=== PATIENT | male | born 1980 | race Caucasian/White ===

== ENCOUNTER 2017-11-19 06:28 | Emergency (ER) | payer OTHER ==
[2017-11-19] MEDS ORDERED: NA CHLORIDE 0.9% 1,000 ML ONE (06:53)
[2017-11-19] MEDS ORDERED: ONDANSETRON 4 MG/2 ML VIAL ONE (06:53)
[2017-11-19] MEDS ORDERED: LOSARTAN POTASSIUM 50 MG TABLET ONE (07:00)
[2017-11-19 07:10] LABS: Absolute Lymphocytes (CBC) 2.6 K/uL (0.7-4.9); Absolute Monocytes 1.3 K/uL (0.1-1.3); Absolute Neutrophil 11.5 K/uL (1.8-8.0); Basophils % 0.6 % (0-1.3); Eosinophils % 0.4 % (0-4.4); Hematocrit 50.1 % (39.6-49.0); Lymphocytes % 16.9 % (15.3-44.8); MCH 24.6 pg (27.0-35.0); MCV 76.6 fL (80-100); MPV 8.6 fL (7.6-11.3); Monocytes % 8.6 % (3.3-12.3); RBC Red Blood Cell Count 6.54 M/uL (4.33-5.43)
[2017-11-19 07:17] LABS: Bicarbonate 28 mEq/L (21-31); Glucose Level 145 mg/dL (65-120); Lipase 40 U/L (22-51); Potassium 3.3 mEq/L (3.6-5.0); Sodium Level 138 mEq/L (135-145)
[2017-11-19 07:23] LABS: ALT/SGPT 49 IU/L (10-60); AST/SGOT 39 IU/L (10-42); Albumin 4.3 g/dL (3.2-5.5); Alkaline Phosphatase 95 IU/L (42-121); Amylase Level 75 U/L (28-100); BUN Blood Urea Nitrogen 13 mg/dL (6-20); Bilirubin Direct 0.1 mg/dL (0-0.2); Bilirubin Total 0.5 mg/dL (0.3-1.2); Protein, Total 7.6 g/dL (6.0-8.3)
[2017-11-19 08:25] LABS: Urine Bacteria <20 /HPF (NONE SEEN); Urine Culture Reflex Order NOT NEEDED; Urine RBC <5 /HPF (NONE SEEN)
[2017-11-19 08:26] LABS: Urine Blood NEGATIVE (NEG); Urine Glucose NEGATIVE (NEG); Urine Protein 1+ (NEG); Urine pH 7.5 (5.0-7.0)
[2017-11-19] MEDS ORDERED: HYDRALAZINE HCL 20 MG/ML VIAL ONE (09:47)
--- NOTE | 2017-11-19 10:41 | RAD REPORT ---
EXAM DESCRIPTION: CT - Abdomen Pelvis W Contrast - 11/19/2017 10:12 am CLINICAL HISTORY: Abdominal pain. Left upper quadrant pain COMPARISON: None. TECHNIQUE: Computed axial tomography of the abdomen and pelvis was obtained. 100 cc Isovue-300 is ad ministered intravenously. Oral contrast was given. All CT scans are performed using dose optimization technique as appropriate and may include automated exposure control or mA/KV adjustment according to patient size. FINDINGS: Fatty infiltration liver seen. Gallstones are present without gallbladder wall thickening. The Spleen, pancreas, adrenals and kidneys appear unremarkable. The appendix is normal caliber. There is no evidence of diverticulitis A right inguinal hernia contains fat. A small duodenal diverticulum is present IMPRESSION: Cholelithiasis without evidence of cholecystitis
--- NOTE | 2017-11-19 10:50 | ER ---
Nurse's Notes [facility] Name: Cuba Rosales Age: 37 yrs Sex: Male : 1980 Arrival Date: 11/19/2017 Time: 06:30 Bed 16 Private MD: Diagnosis: Essential (primary) hypertension;Hypokalemia;Dehydration;Infectious gastroenteritis and colitis, unspecified Presentation: 11/19 06:44 Presenting complaint: Patient states: Has been having abdominal cramping and vomiting lp1 x2 days; pain to LUQ of abdomen; Significant other states "he has been clammy"; Patient states similar symptoms when diagnosed with gastritis. Transition of care: patient was not received from another setting of care. Onset of symptoms was November 17, 2017. Risk Assessment: Do you want to hurt yourself or someone else? Patient reports no desire to harm self or others. Initial Sepsis Screen: Does the patient meet any 2 criteria? No. Patient's initial sepsis screen is negative. Does the patient have a suspected source of infection? No. Patient's initial sepsis screen is negative. Care prior to arrival: None. 06:44 Method Of Arrival: Ambulatory lp1 06:44 Acuity: PUMA 3 lp1 Historical: - Allergies: 06:48 Bactrim; lp1 06:48 Benadryl; lp1 06:48 Lisinopril; lp1 06:48 Clindamycin; lp1 - Home Meds: 06:48 losartan 50 mg oral tab 1 tab once daily [Active]; lp1 - PMHx: 06:48 Hypertension; lp1 - PSHx: 06:48 Ear Tubes; lp1 - Immunization history:: Adult Immunizations up to date. - Social history:: Smoking status: Patient/guardian denies using tobacco. - Ebola Screening: : No symptoms or risks identified at this time. - Family history:: not pertinent. - Hospitalizations: : No recent hospitalization is reported. Screenin:49 Abuse screen: Denies threats or abuse. Denies injuries from another. Nutritional lp1 screening: No deficits noted. Tuberculosis screening: No symptoms or risk factors identified. Fall Risk None identified. Assessment: 06:48 General: Appears uncomfortable, Behavior is appropriate for age. Pain: Complains of lp1 pain in left upper quadrant Pain currently is 5 out of 10 on a pain scale. Neuro: Level of Consciousness is awake, alert, obeys commands. Cardiovascular: Patient's skin is warm and dry. Respiratory: Respiratory effort is even, unlabored. GI: Abdomen is round distended, Abdomen is tender to palpation in left upper quadrant Reports upper abdominal pain, vomiting. : Denies burning with urination. EENT: No signs and/or symptoms were reported regarding the EENT system. Derm: Skin is pink, warm \\T\\ dry. Musculoskeletal: Circulation, motion, and sensation intact. 08:10 Reassessment: No changes from previously documented assessment. Patient and/or family jl7 updated on plan of care and expected duration. Pain level reassessed. Patient is alert, oriented x 3, equal unlabored respirations, skin warm/dry/pink. 09:45 Reassessment: No changes from previously documented assessment. Patient and/or family jl7 updated on plan of care and expected duration. Pain level reassessed. Patient is alert, oriented x 3, equal unlabored respirations, skin warm/dry/pink. Provider notified of unchanged BP, see [facility] for orders. Vital Signs: 06:46 BP 195 / 113; Pulse 76; Resp 18; Temp 98.5(O); Pulse Ox 97% on R/A; Weight 72.57 kg; lp1 Height 5 ft. 5 in. (165.10 cm); Pain 6/10; 07:45 BP 195 / 116; Pulse 75; Resp 16; Pulse Ox 96% ; jl7 08:06 BP 175 / 112; Pulse 76; Resp 16; Pulse Ox 96% ; jl7 08:45 BP 185 / 115; Pulse 55; Resp 16; Pulse Ox 98% ; jl7 09:30 BP 176 / 111; Pulse 63; Resp 16; Pulse Ox 98% ; jl7 11:14 BP 153 / 103; Pulse 62; Resp 16; Pulse Ox 98% ; jl7 06:46 Body Mass Index 26.63 (72.57 kg, 165.10 cm) lp1 ED Course: 06:30 Patient arrived in ED. am2 06:32 Claud[facility] Barrios FNP [facility] kav 06:32 Niles Chaudhry MD is Attending Physician. kav 06:46 Triage completed. lp1 06:46 Arm band placed on right wrist. lp1 06:49 Patient has correct armband on for positive identification. Placed in gown. Pulse ox lp1 on. NIBP on. 06:55 Inserted saline lock: 20 gauge in right forearm, using aseptic technique. Blood jl7 collected. inserted by Melani King RN. 07:11 Jaron Sebastian, RN is Primary Nurse. jl7 10:[address] via wheelchair. sj 10:12 CT Abd/Pelvis - W/Contrast: luq abd pain In Process Unspecified. EDMS 10:12 CT completed. Patient tolerated procedure well. Patient moved back from CT. jj2 11:14 No provider procedures requiring assistance completed. IV discontinued, intact, jl7 bleeding controlled, No redness/swelling at site. Pressure dressing applied. Administered Medications: 07:00 Drug: NS 0.9% 1000 ml Route: IV; Rate: 1 bolus; Site: right forearm; lp1 10:30 Follow up: IV Status: Completed infusion jl7 07:00 Drug: Zofran 4 mg Route: IVP; Site: right forearm; lp1 07:30 Follow up: Response: No adverse reaction; Nausea is decreased jl7 07:07 Drug: Losartan 50 mg Route: PO; tl2 09:50 Follow up: Response: No adverse reaction; Blood pressure is unchanged jl7 09:50 Drug: hydrALAZINE 10 mg Route: IV; Rate: bolus; Site: right antecubital; jl7 09:52 Follow up: IV Status: Completed infusion jl7 11:19 Follow up: Response: Blood pressure is lowered jl7 Outcome: 10:49 Discharge ordered by MD. radford 11:14 Discharged to home ambulatory. jl7 11:14 Condition: stable 11:14 Discharge instructions given to patient, family, Instructed on discharge instructions, follow up and referral plans. medication usage, Demonstrated understanding of instructions, follow-up care, medications, Prescriptions given X 2. 11:20 Patient left the ED. jl7 Signatures: Dispatcher [employer] EDMS Claudia Barrios, INTERACTIVE DIGITAL MEDIA SPECIALIST INTERACTIVE DIGITAL MEDIA SPECIALIST Artur Aguilera Susan sj Pena, Laura RN RN lp1 Melani King RN RN tl2 Jaron Sebastian, BETINA RN jl7 Caryn Rasmussen am2 Corrections: (The following items were deleted from the chart) 06:50 06:48 GI: Abdomen is round distended, Abdomen is tender to palpation in left upper lp1 quadrant lp1 07:12 05 18:55 Inserted saline lock: 20 gauge in right forearm, using aseptic technique. jl7 Blood collected. tl2
--- NOTE | 2017-11-19 10:50 | EDPHYS ---
Physician Documentation [facility] Name: Cuba Rosales Age: 37 yrs Sex: Male : 1980 Arrival Date: 11/19/2017 Time: 06:30 Bed 16 Private MD: ED Physician Niles Chaudhry HPI: 11/19 06:32 This 37 yrs old Male presents to ER via Unassigned with complaints of kav Vomiting, Abdominal Cramping. 06:47 The patient presents to the emergency department with nausea, vomiting, 1 times today, kav described as bilious. Onset: The symptoms/episode began/occurred acutely, 3 day(s) ago. Possible causes: unknown. The symptoms are aggravated by nothing. The symptoms are alleviated by nothing. Associated signs and symptoms: Pertinent positives: abdominal pain, Pertinent negatives: anorexia, belching, constipation, diarrhea, dysuria, fever, flatulence, GI bleeding, hematuria. Severity of symptoms: At their worst the symptoms were moderate just prior to arrival. The patient has not experienced similar symptoms in the past. The patient has not recently seen a physician. Historical: - Allergies: 06:48 Bactrim; lp1 06:48 Benadryl; lp1 06:48 Lisinopril; lp1 06:48 Clindamycin; lp1 - Home Meds: 06:48 losartan 50 mg oral tab 1 tab once daily [Active]; lp1 - PMHx: 06:48 Hypertension; lp1 - PSHx: 06:48 Ear Tubes; lp1 - Immunization history:: Adult Immunizations up to date. - Social history:: Smoking status: Patient/guardian denies using tobacco. - Ebola Screening: : No symptoms or risks identified at this time. - Family history:: not pertinent. - Hospitalizations: : No recent hospitalization is reported. ROS: 06:48 Constitutional: Negative for fever, chills, and weight loss, Eyes: Negative for injury, kav pain, redness, and discharge, ENT: Negative for injury, pain, and discharge, Neck: Negative for injury, pain, and swelling, Cardiovascular: Negative for chest pain, palpitations, and edema, Respiratory: Negative for shortness of breath, cough, wheezing, and pleuritic chest pain, Back: Negative for injury and pain, : Negative for injury, bleeding, discharge, and swelling, MS/Extremity: Negative for injury and deformity, Skin: Negative for injury, rash, and discoloration, Neuro: Negative for headache, weakness, numbness, tingling, and seizure, Psych: Negative for depression, anxiety, suicide ideation, homicidal ideation, and hallucinations, Allergy/Immunology: Negative for hives, rash, and allergies, Endocrine: Negative for neck swelling, polydipsia, polyuria, polyphagia, and marked weight changes, Hematologic/Lymphatic: Negative for swollen nodes, abnormal bleeding, and unusual bruising. 06:48 Abdomen/GI: Positive for nausea, vomiting, abdominal cramps, of the left upper quadrant, Negative for diarrhea, constipation, abdominal distension, anorexia, dysphagia, hematemesis, black/tarry stool, rectal pain, rectal bleeding, bowel incontinence, flatulence. Exam: 06:48 Constitutional: This is a well developed, well nourished patient who is awake, alert, kav and in no acute distress. Head/Face: Normocephalic, atraumatic. Eyes: Pupils equal round and reactive to light, extra-ocular motions intact. Lids and lashes normal. Conjunctiva and sclera are non-icteric and not injected. Cornea within normal limits. Periorbital areas with no swelling, redness, or edema. ENT: Nares patent. No nasal discharge, no septal abnormalities noted. Tympanic membranes are normal and external auditory canals are clear. Oropharynx with no redness, swelling, or masses, exudates, or evidence of obstruction, uvula midline. Mucous membranes moist. Neck: Trachea midline, no thyromegaly or masses palpated, and no cervical lymphadenopathy. Supple, full range of motion without nuchal rigidity, or vertebral point tenderness. No Meningismus. Chest/axilla: Normal chest wall appearance and motion. Nontender with no deformity. No lesions are appreciated. Cardiovascular: Regular rate and rhythm with a normal S1 and S2. No gallops, murmurs, or rubs. Normal PMI, no JVD. No pulse deficits. Respiratory: Lungs have equal breath sounds bilaterally, clear to auscultation and percussion. No rales, rhonchi or wheezes noted. No increased work of breathing, no retractions or nasal flaring. Back: No spinal tenderness. No costovertebral tenderness. Full range of motion. Skin: Warm, dry with normal turgor. Normal color with no rashes, no lesions, and no evidence of cellulitis. MS/ Extremity: Pulses equal, no cyanosis. Neurovascular intact. Full, normal range of motion. Neuro: Awake and alert, GCS 15, oriented to person, place, time, and situation. Cranial nerves II-XII grossly intact. Motor strength 5/5 in all extremities. Sensory grossly intact. Cerebellar exam normal. Normal gait. Psych: Awake, alert, with orientation to person, place and time. Behavior, mood, and affect are within normal limits. 06:48 Abdomen/GI: Inspection: abdomen appears normal, Bowel sounds: active, all quadrants, Palpation: moderate abdominal tenderness, in the left upper quadrant. Vital Signs: 06:46 BP 195 / 113; Pulse 76; Resp 18; Temp 98.5(O); Pulse Ox 97% on R/A; Weight 72.57 kg; lp1 Height 5 ft. 5 in. (165.10 cm); Pain 6/10; 07:45 BP 195 / 116; Pulse 75; Resp 16; Pulse Ox 96% ; jl7 08:06 BP 175 / 112; Pulse 76; Resp 16; Pulse Ox 96% ; jl7 08:45 BP 185 / 115; Pulse 55; Resp 16; Pulse Ox 98% ; jl7 09:30 BP 176 / 111; Pulse 63; Resp 16; Pulse Ox 98% ; jl7 11:14 BP 153 / 103; Pulse 62; Resp 16; Pulse Ox 98% ; jl7 06:46 Body Mass Index 26.63 (72.57 kg, 165.10 cm) lp1 MDM: 06:41 Medical screening is not applicable. kav 06:48 Data reviewed: vital signs, nurses notes. v 09:29 ED course: awaiting ct scan results. 11/19 06:44 Order name: Amylase, Serum; Complete Time: 07:51 11/19 07:51 Interpretation: Within normal limits. 11/19 06:44 Order name: Basic Metabolic Panel; Complete Time: 07:51 11/19 07:51 Interpretation: K 3.3; GLUC 145. 11/19 06:44 Order name: CBC with Diff; Complete Time: 07:53 11/19 07:54 Interpretation: WBC 15.6; RBC 6.54; HCT 50.1; MCV 76.6; MCH 24.6; RDW 17.8; NEUT A 11.5. 11/19 06:44 Order name: Creatinine for Radiology; Complete Time: 07:54 [facility] 11/19 07:54 Interpretation: Within normal limits. 11/19 06:44 Order name: Hepatic Function; Complete Time: 07:54 11/19 07:54 Interpretation: Within normal limits. 11/19 06:44 Order name: Lipase; Complete Time: 07:54 [facility] 11/19 07:54 Interpretation: Within normal limits. 11/19 06:44 Order name: Urine Microscopic Only; Complete Time: 08:29 11/19 08:29 Interpretation: Within normal limits. 11/19 06:44 Order name: IV Saline Lock; Complete Time: 07:01 [facility] 11/19 07:17 Order name: Urine Dipstick--Ancillary (enter results); Complete Time: 08:29 11/19 08:29 Interpretation: Normal except: UPH 7.5; UPROT 1+. [facility] 11/19 07:56 Order name: CT Abd/Pelvis - W/Contrast: luq abd pain; Complete Time: 10:44 [facility] 11/19 10:46 Interpretation: No acute disease except: Cholecystitis w/o cholelithiasis. 11/19 06:44 Order name: Labs collected and sent; Complete Time: 07:01 [facility] 11/19 06:44 Order name: Urine Dipstick-Ancillary (obtain specimen); Complete Time: 07:01 ka Administered Medications: 07:00 Drug: NS 0.9% 1000 ml Route: IV; Rate: 1 bolus; Site: right forearm; lp1 10:30 Follow up: IV Status: Completed infusion jl7 07:00 Drug: Zofran 4 mg Route: IVP; Site: right forearm; lp1 07:30 Follow up: Response: No adverse reaction; Nausea is decreased jl7 07:07 Drug: Losartan 50 mg Route: PO; tl2 09:50 Follow up: Response: No adverse reaction; Blood pressure is unchanged jl7 09:50 Drug: hydrALAZINE 10 mg Route: IV; Rate: bolus; Site: right antecubital; jl7 09:52 Follow up: IV Status: Completed infusion jl7 11:19 Follow up: Response: Blood pressure is lowered jl7 Disposition: 11/19/17 10:49 Discharged to Home. Impression: Essential (primary) hypertension, Hypokalemia, Dehydration, Infectious gastroenteritis and colitis, unspecified. - Condition is Stable. - Discharge Instructions: Viral Gastroenteritis, [id number], Hypertension, Zbpw-bl-Usst, Dehydration, Adult, Rrax-pr-Pktu, DASH Eating Plan, Rehydration, Adult. - Prescriptions for Flagyl 250 mg Oral Tablet - take 1 tablet by ORAL route every 8 hours for 7 days; 21 tablet. Cipro 500 mg Oral Tablet - take 1 tablet by ORAL route every 12 hours for 7 days; 14 tablet. - Work release form, Medication Reconciliation Form, Thank You Letter, Antibiotic Education, Prescription Opioid Use form. - Follow up: Private Physician; When: 2 - 3 days; Reason: If symptoms return, Recheck today's complaints, Continuance of care, Re-evaluation by your physician. - Problem is new. - Symptoms have improved. - Notes: ensure adequate hydration Addendum: 11/24/2017 07:01 Co-signature as Attending Physician, Niles Chaudhry MD. r n Signatures: Dispatcher [employer] EDMS Claudia Barrios, DELI BAKERY CLERK DELI BAKERY CLERK Niles Estrada MD MD rn Pena, Laura RN RN lp1 Melani King RN RN tl2 Jaron Sebastian RN RN jl7 Corrections: (The following items were deleted from the chart) 11/19 07:54 07:53 WBC 15.6; RBC 6.54; HCT 50.1; MCV 76.6; MCH 24.6; RDW 17.8. kav ka 07:55 07:51 Normal except: K 3.3; GLUC 145. ka ka 10:52 10:49 11/19/2017 10:49 Discharged to Home. Impression: Essential (primary) kav hypertension; Hypokalemia; Urinary tract infection, site not specified; Dehydration. Condition is Stable. Forms are Medication Reconciliation Form, Thank You Letter, Antibiotic Education, Prescription Opioid Use. Follow up: Private Physician; When: 2 - 3 days; Reason: If symptoms return, Recheck today's complaints, Continuance of care, Re-evaluation by your physician. Problem is new. Symptoms have improved. kav 11:20 10:52 11/19/2017 10:49 Discharged to Home. Impression: Essential (primary) jl7 hypertension; Hypokalemia; Dehydration; Infectious gastroenteritis and colitis, unspecified. Condition is Stable. Discharge Instructions: Hypertension, [id number]-ms-Qbcv, Dehydration, Adult, Glgt-zn-Sbtx, DASH Eating Plan, Rehydration, Adult. Forms are Medication Reconciliation Form, Thank You Letter, Antibiotic Education, Prescription Opioid Use. Follow up: Private Physician; When: 2 - 3 days; Reason: If symptoms return, Recheck today's complaints, Continuance of care, Re-evaluation by your physician. Problem is new. Symptoms have improved. kav
[2017-11-19 11:24] VITALS: TEMP 98.5
[2017-11-19 11:26] VITALS: O2SAT 98
[2017-11-19 11:29] VITALS: BP 153/103
== END 2017-11-19 11:20 | disposition home or self-care (01) ==
LOC: ER 06:28
DX: E86.0 Dehydration (principal); A09 Infectious gastroenteritis and colitis, unspecified; E87.6 Hypokalemia; I10 Essential (primary) hypertension; Z88.1 Allergy status to other antibiotic agents; Z88.3 Allergy status to other anti-infective agents; Z88.8 Allergy status to other drugs, medicaments and biological substances
CPT/HCPCS: 36415; 74177; 80048; 80076; 82150; 83690; 85025; J0360; J2405; J7030; Q9967; 81003; 81015; 99284

== ENCOUNTER 2018-11-11 08:55 | Emergency (ER) | payer OTHER ==
--- OUTSIDE RECORDS SUMMARY | 2018-11-11 08:57 | XMS REPORT ---
:1980 [facility] Address [address] [place] [address] [address] [place] [address] Care Team Providers Name Role Phone Unavailable Unavailable Unavailable Problems This patient has no known problems. Allergies, Adverse Reactions, Alerts This patient has no known allergies or adverse reactions. Medications This patient has no known medications.
--- NOTE | 2018-11-11 09:53 | ER ---
Nurse's Notes [facility] Name: Cuba Rosales Age: 38 yrs Sex: Male : 1980 Arrival Date: 11/11/2018 Time: 08:58 Bed 8 Private MD: Diagnosis: Edema of left upper eyelid Presentation: 11/11 09:18 Presenting complaint: Left periorbital swelling upon waking today. Denies injury. hb Transition of care: patient was not received from another setting of care. Onset of symptoms was November 11, 2018. Risk Assessment: Do you want to hurt yourself or someone else? Patient reports no desire to harm self or others. Initial Sepsis Screen: Does the patient meet any 2 criteria? No. Patient's initial sepsis screen is negative. Does the patient have a suspected source of infection? No. Patient's initial sepsis screen is negative. Care prior to arrival: None. 09:18 Method Of Arrival: Ambulatory hb 09:18 Acuity: PUMA 4 hb Historical: - Allergies: 09:20 Bactrim; hb 09:20 Benadryl; hb 09:20 Clindamycin; hb 09:20 Lisinopril; hb 09:20 Demerol; hb - Immunization history:: Adult Immunizations up to date. - Social history:: Smoking status: Patient/guardian denies using tobacco. - Ebola Screening: : No symptoms or risks identified at this time. Screenin:22 Abuse screen: Denies threats or abuse. Denies injuries from another. Nutritional hb screening: No deficits noted. Tuberculosis screening: No symptoms or risk factors identified. Fall Risk None identified. Assessment: 09:20 General: Appears in no apparent distress. Behavior is calm, cooperative. Pain: Pain hb currently is 2 out of 10 on a pain scale. Neuro: Level of Consciousness is awake, alert, obeys commands, Oriented to person, place, time, situation. Cardiovascular: Capillary refill < 3 seconds Patient's skin is warm and dry. Respiratory: Airway is patent Respiratory effort is even, unlabored, Respiratory pattern is regular, symmetrical. GI: No signs and/or symptoms were reported involving the gastrointestinal system. : No signs and/or symptoms were reported regarding the genitourinary system. EENT: severe left periorbital swelling with mild redness. Derm: Skin is intact, is healthy with good turgor. Musculoskeletal: No signs and/or symptoms reported regarding the musculoskeletal system. 10:00 Reassessment: Patient appears in no apparent distress at this time. No changes from previously documented assessment. Patient and/or family updated on plan of care and expected duration. Pain level reassessed. Patient is alert, oriented x 3, equal unlabored respirations, skin warm/dry/pink. Vital Signs: 09:20 BP 137 / 94; Pulse 66; Resp 16; Temp 97.2; Pulse Ox 100% ; Weight 80.74 kg; Height 5 hb ft. 5 in. (165.10 cm); Pain 3/10; 09:20 Body Mass Index 29.62 (80.74 kg, 165.10 cm) hb ED Course: 08:58 Patient arrived in ED. mr 09:18 Adrienne Reed, RN is Primary Nurse. hb 09:19 Triage completed. hb 09:20 Arm band placed on. hb 09:22 Patient has correct armband on for positive identification. Bed in low position. Call light in reach. Side rails up X 1. 09:30 Gisela Haji FNP-C is [facility]. kb 09:30 Wood Courtney MD is Attending Physician. kb 10:05 No provider procedures requiring assistance completed. Patient did not have IV access hb during this emergency room visit. Administered Medications: 10:02 Drug: Pepcid 20 mg Route: PO; hb 10:02 Follow up: Response: Medication administered at discharge. hb 10:02 Drug: predniSONE 40 mg Route: PO; hb 10:02 Follow up: Response: Medication administered at discharge. Outcome: 09:52 Discharge ordered by . kb 10:05 Discharged to home ambulatory. hb 10:05 Condition: stable 10:05 Discharge instructions given to patient, Instructed on discharge instructions, follow up and referral plans. medication usage, Demonstrated understanding of instructions, follow-up care, medications, Prescriptions given X 2. 10:06 Patient left the ED. hb Signatures: Gisela Haji FNP-C FNP-Ryland CamaVivi mr Adrienne Reed, RN RN hb
--- NOTE | 2018-11-11 09:53 | EDPHYS ---
Physician Documentation [facility] Name: Cuba Rosales Age: 38 yrs Sex: Male : 1980 Arrival Date: 11/11/2018 Time: 08:58 Bed 8 Private MD: ED Physician Wood Courtney HPI: 11/11 09:46 This 38 yrs old Male presents to ER via Ambulatory with complaints of Eye kb Swelling. 09:46 The patient is experiencing redness, left upper eyelid swelling, The patient sustained kb None. to the left eye, caused by an unknown mechanism. Onset: The symptoms/episode began/occurred this morning. Duration: the symptoms are continuous. Aggravated by nothing. Alleviated by nothing. Associated signs and symptoms: Pertinent positives: None. Patient does not utilize any form of vision correction. Severity of symptoms: At their worst the symptoms were moderate in the emergency department the symptoms are unchanged. The patient has not experienced similar symptoms in the past. The patient has not recently seen a physician. Pt woke up with swelling to upper eyelid. Denies injury. Denies visual changes. Historical: - Allergies: 09:20 Bactrim; hb 09:20 Benadryl; hb 09:20 Clindamycin; hb 09:20 Lisinopril; hb 09:20 Demerol; hb - Immunization history:: Adult Immunizations up to date. - Social history:: Smoking status: Patient/guardian denies using tobacco. - Ebola Screening: : No symptoms or risks identified at this time. ROS: 09:49 Constitutional: Negative for fever, chills, and weight loss, Cardiovascular: Negative kb for chest pain, palpitations, and edema, Respiratory: Negative for shortness of breath, cough, wheezing, and pleuritic chest pain, Abdomen/GI: Negative for abdominal pain, nausea, vomiting, diarrhea, and constipation, MS/Extremity: Negative for injury and deformity, Skin: Negative for injury, rash, and discoloration, Neuro: Negative for headache, weakness, numbness, tingling, and seizure. 09:49 Eyes: Positive for redness, swelling, of the left upper eyelid. Exam: 09:49 Constitutional: This is a well developed, well nourished patient who is awake, alert, kb and in no acute distress. Head/Face: Normocephalic, atraumatic. ENT: Nares patent. No nasal discharge, no septal abnormalities noted. Tympanic membranes are normal and external auditory canals are clear. Oropharynx with no redness, swelling, or masses, exudates, or evidence of obstruction, uvula midline. Mucous membranes moist. Neck: Trachea midline, no thyromegaly or masses palpated, and no cervical lymphadenopathy. Supple, full range of motion without nuchal rigidity, or vertebral point tenderness. No Meningismus. Chest/axilla: Normal chest wall appearance and motion. Nontender with no deformity. No lesions are appreciated. Cardiovascular: Regular rate and rhythm with a normal S1 and S2. No gallops, murmurs, or rubs. Normal PMI, no JVD. No pulse deficits. Respiratory: Lungs have equal breath sounds bilaterally, clear to auscultation and percussion. No rales, rhonchi or wheezes noted. No increased work of breathing, no retractions or nasal flaring. Abdomen/GI: Soft, non-tender, with normal bowel sounds. No distension or tympany. No guarding or rebound. No evidence of tenderness throughout. Skin: Warm, dry with normal turgor. Normal color with no rashes, no lesions, and no evidence of cellulitis. MS/ Extremity: Pulses equal, no cyanosis. Neurovascular intact. Full, normal range of motion. Neuro: Awake and alert, GCS 15, oriented to person, place, time, and situation. Cranial nerves II-XII grossly intact. Motor strength 5/5 in all extremities. Sensory grossly intact. Cerebellar exam normal. Normal gait. 09:49 Eyes: Lids and lashes: edema, of the left eye, erythema. Vital Signs: 09:20 BP 137 / 94; Pulse 66; Resp 16; Temp 97.2; Pulse Ox 100% ; Weight 80.74 kg; Height 5 hb ft. 5 in. (165.10 cm); Pain 3/10; 09:20 Body Mass Index 29.62 (80.74 kg, 165.10 cm) hb MDM: 09:30 Patient medically screened. kb 09:51 Data reviewed: vital signs, nurses notes. Data interpreted: Pulse oximetry: on room air kb is 100 %. Interpretation: normal. Counseling: I had a detailed discussion with the patient and/or guardian regarding: the historical points, exam findings, and any diagnostic results supporting the discharge/admit diagnosis, the need for outpatient follow up, a family practitioner, to return to the emergency department if symptoms worsen or persist or if there are any questions or concerns that arise at home. Administered Medications: 10:02 Drug: Pepcid 20 mg Route: PO; hb 10:02 Follow up: Response: Medication administered at discharge. hb 10:02 Drug: predniSONE 40 mg Route: PO; hb 10:02 Follow up: Response: Medication administered at discharge. hb Disposition: 10:13 Co-signature as Attending Physician, Wood Courtney MD I agree with the assessment and kdr plan of care. Disposition: 11/11/18 09:52 Discharged to Home. Impression: Edema of left upper eyelid. - Condition is Stable. - Discharge Instructions: Allergies, [id number]. - Prescriptions for Pepcid 20 mg Oral Tablet - take 1 tablet by ORAL route every 12 hours for 5 days; 10 tablet. Prednisone 20 mg Oral Tablet - take 1 tablet by ORAL route once daily for 5 days; 5 tablet. - Medication Reconciliation Form, Thank You Letter, Antibiotic Education, Prescription Opioid Use form. - Work release form (11/12/18 09:44). eb - Follow up: Emergency Department; When: As needed; Reason: Worsening of condition. Follow up: Private Physician; When: 2 - 3 days; Reason: Recheck today's complaints, Continuance of care, Re-evaluation by your physician. Signatures: Gisela Haji, VIRAL-Kathi STRATTON-Wood Ngo MD MD [facility] Adrienne Reed RN RN Tracey Joe Corrections: (The following items were deleted from the chart) 10:06 09:52 11/11/2018 09:52 Discharged to Home. Impression: Edema of left upper eyelid. hb Condition is Stable. Forms are Medication Reconciliation Form, Thank You Letter, Antibiotic Education, Prescription Opioid Use. Follow up: Emergency Department; When: As needed; Reason: Worsening of condition. Follow up: Private Physician; When: 2 - 3 days; Reason: Recheck today's complaints, Continuance of care, Re-evaluation by your physician. kb
[2018-11-11] MEDS ORDERED: predniSONE 20 MG TAB ONE (10:11)
[2018-11-11] MEDS ORDERED: FAMOTIDINE 20 MG TAB ONE (10:11)
[2018-11-11 10:14] VITALS: BP 137/94; TEMP 97.2; O2SAT 100
== END 2018-11-11 10:06 | disposition home or self-care (01) ==
LOC: ER 08:55
DX: H02.844 Edema of left upper eyelid (principal); Z88.1 Allergy status to other antibiotic agents; Z88.5 Allergy status to narcotic agent; Z88.8 Allergy status to other drugs, medicaments and biological substances
CPT/HCPCS: 99283; J7512

== ENCOUNTER 2022-03-20 00:31 | Emergency (ER) | payer OTHER ==
--- OUTSIDE RECORDS SUMMARY | 2022-03-20 00:34 | XMS REPORT | Continuity of Care Document ---
:1980 Author Organization [facility] t Address [address] [place] [address] [address] [place] [address] Care Team Providers Name Role Phone EDGARDO Attending Clinician Unavailable EDGARDO Admitting Clinician Unavailable Problems This patient has no known problems. Allergies, Adverse Reactions, Alerts This patient has no known allergies or adverse reactions. Medications This patient has no known medications. Procedures This patient has no known procedures. Encounters Start End Encounter Admission Attending Care Care Encounter Source Date/Time Date/Time Type Type Clinicians Facility Department ID 2022-01-01 2022-01-01 Outpatient MARY GARCIA [id number] 02:27:00 02:27:00 HN [id number] da [facility] [place] Program Results This patient has no known results.
[2022-03-20 02:13] LABS: Absolute Lymphocytes (CBC) 3.9 K/uL (0.7-4.9); Hematocrit 52.8 % (39.6-49.0); Lymphocytes % 32.7 % (15.3-44.8); MCV 79.3 fL (80-100); MPV 8.3 fL (7.6-11.3); RBC Red Blood Cell Count 6.67 M/uL (4.33-5.43)
[2022-03-20 02:41] LABS: Urine Blood Negative (Negative); Urine Glucose Negative (Negative); Urine Protein Negative (Negative); Urine Specific Gravity >=1.030 (1.005-1.030)
[2022-03-20 02:42] LABS: Bilirubin Total 0.6 mg/dL (0.2-1.0); Protein, Total 7.5 g/dL (6.4-8.2)
[2022-03-20 03:32] LABS: Urine Mucus Slight /HPF (None Seen)
--- NOTE | 2022-03-20 03:59 | ER ---
Nurse's Notes [facility] Name: Cuba Rosales Age: 42 yrs Sex: Male : 1980 Arrival Date: 03/20/2022 Time: 00:35 Bed 11 Private MD: Diagnosis: Abdominal pain, Generalized;Other cholelithiasis without obstruction Presentation: 03/20 00:46 Chief complaint: Patient states: abdominal pain off and on all day 03/19/22. Coronavirus kl screen: Vaccine status: Patient reports receiving the 2nd dose of the covid vaccine. Ebola Screen: Patient negative for fever greater than or equal to 101.5 degrees Fahrenheit, and additional compatible Ebola Virus Disease symptoms. Initial Sepsis Screen: Does the patient meet any 2 criteria? No. Patient's initial sepsis screen is negative. Does the patient have a suspected source of infection? No. Patient's initial sepsis screen is negative. Risk Assessment: Do you want to hurt yourself or someone else? Patient reports no desire to harm self or others. Onset of symptoms was March 19, 2022. 00:46 Method Of Arrival: Ambulatory 00:46 Acuity: PUMA 3 kl Triage Assessment: 00:49 General: Appears in no apparent distress. comfortable, Behavior is calm, cooperative. kl Pain: Denies pain. GI:. Historical: - Allergies: 00:48 Bactrim; kl 00:48 Benadryl; kl 00:48 Clindamycin; kl 00:48 Demerol; kl 00:48 Lisinopril; - Home Meds: 00:48 losartan 50 mg Oral tab 1 tab once daily [Active]; - PMHx: 00:48 Hypertension; kl - Immunization history:: Adult Immunizations not up to date. - Social history:: Smoking status: Patient denies any tobacco usage or history of. Screenin:18 Abuse screen: Denies threats or abuse. Nutritional screening: No deficits noted. kl Tuberculosis screening: No symptoms or risk factors identified. Fall Risk None identified. Assessment: 01:18 General: Appears in no apparent distress. comfortable, Behavior is calm, cooperative. kl Pain: Denies pain. Neuro: No deficits noted. Cardiovascular: No deficits noted. Respiratory: No deficits noted. GI: No deficits noted. Bowel sounds present X 4 quads. Abd is soft and non tender. : No deficits noted. No signs and/or symptoms were reported regarding the genitourinary system. EENT: No deficits noted. No signs and/or symptoms were reported regarding the EENT system. Derm: No deficits noted. No signs and/or symptoms reported regarding the dermatologic system. Musculoskeletal: No deficits noted. No signs and/or symptoms reported regarding the musculoskeletal system. 02:32 Reassessment: Patient appears in no apparent distress at this time. Patient and/or kl family updated on plan of care and expected duration. Pain level reassessed. Patient is alert, oriented x 3, equal unlabored respirations, skin warm/dry/pink. 03:30 Reassessment: Patient appears in no apparent distress at this time. Patient and/or kl family updated on plan of care and expected duration. Pain level reassessed. Patient is alert, oriented x 3, equal unlabored respirations, skin warm/dry/pink. Vital Signs: 00:46 BP 137 / 89; Pulse 75; Resp 18; Pulse Ox 95% ; Weight 82.1 kg; Height 5 ft. 5 in. kl (165.10 cm); Pain 0/10; 02:41 BP 138 / 91; Pulse 70; Resp 16; Pulse Ox 100% on R/A; kl 00:46 Body Mass Index 30.12 (82.10 kg, 165.10 cm) ED Course: 00:35 Patient arrived in ED. ja2 00:48 Triage completed. 00:51 Lou Damon MD is Attending Physician. sp3 01:46 Initial lab(s) drawn, by az, sent to lab. Inserted saline lock: 20 gauge in right jb4 antecubital area, using aseptic technique. Blood collected. 03:18 Abdomen In Process Unspecified. EDMS 04:12 IV discontinued, bleeding controlled, Pressure dressing applied. mw2 04:21 No provider procedures requiring assistance completed. kl 04:21 Arm band placed on right wrist. kl 04:22 IV discontinued, bleeding controlled, Pressure dressing applied. kl 04:22 Patient has correct armband on for positive identification. Administered Medications: No medications were administered Medication: 04:21 VIS not applicable for this client. Outcome: 03:58 Discharge ordered by . sp3 04:21 Discharged to home ambulatory. kl 04:21 Condition: improved 04:21 Discharge instructions given to patient, Instructed on discharge instructions, follow up and referral plans. Demonstrated understanding of instructions, follow-up care. 04:22 Patient left the ED. kl Signatures: Dispatcher [employer] Flor Yap RN RN kl Bryson, James, RN RN jb4 Meg, Pasquale 2 Lou Damon MD MD sp3 Yuridia Freed
--- NOTE | 2022-03-20 03:59 | EDPHYS ---
Physician Documentation [facility] Name: Cuba Rosales Age: 42 yrs Sex: Male : 1980 Arrival Date: 03/20/2022 Time: 00:35 Bed 11 Private MD: ED Physician Lou Damon HPI: 03/20 01:07 This 42 yrs old Male presents to ER via Ambulatory with complaints of Abdominal Pain. sp3 01:07 42-year-old male with history of hypertension presents with proximately 16 hours of sp3 right-sided abdominal pain that is progressively gotten worse over the day. Patient has a strenuous job at [employer] and states that this is day progressed the pain started getting worse. He denies any vomiting, diarrhea, nausea, trauma, or any other changes in his daily routine. Has no past surgical history in the abdomen. He denies headache, neck pain, chest pain, shortness of breath, back pain, dysuria, hematuria, rash, travel, or any known sick contacts.. Historical: - Allergies: 00:48 Bactrim; kl 00:48 Benadryl; kl 00:48 Clindamycin; kl 00:48 Demerol; kl 00:48 Lisinopril; kl - Home Meds: 00:48 losartan 50 mg Oral tab 1 tab once daily [Active]; kl - PMHx: 00:48 Hypertension; kl - Immunization history:: Adult Immunizations not up to date. - Social history:: Smoking status: Patient denies any tobacco usage or history of. ROS: 01:08 Constitutional: Negative for fever, chills, and weight loss, Eyes: Negative for injury, sp3 pain, redness, and discharge, ENT: Negative for injury, pain, and discharge, Neck: Negative for injury, pain, and swelling, Cardiovascular: Negative for chest pain, palpitations, and edema, Respiratory: Negative for shortness of breath, cough, wheezing, and pleuritic chest pain, Back: Negative for injury and pain, : Negative for injury, bleeding, discharge, and swelling, MS/Extremity: Negative for injury and deformity, Skin: Negative for injury, rash, and discoloration, Neuro: Negative for headache, weakness, numbness, tingling, and seizure, Psych: Negative for depression, anxiety, suicide ideation, homicidal ideation, and hallucinations, Allergy/Immunology: Negative for hives, rash, and allergies, Endocrine: Negative for neck swelling, polydipsia, polyuria, polyphagia, and marked weight changes. 01:08 All other systems are negative. Exam: 01:08 Constitutional: This is a well developed, well nourished patient who is awake, alert, sp3 and in no acute distress. Head/Face: Normocephalic, atraumatic. Eyes: Pupils equal round and reactive to light, extra-ocular motions intact. Lids and lashes normal. Conjunctiva and sclera are non-icteric and not injected. Cornea within normal limits. Periorbital areas with no swelling, redness, or edema. ENT: Nares patent. No nasal discharge, no septal abnormalities noted. External auditory canals are clear. Oropharynx with no redness, swelling, or masses, exudates, or evidence of obstruction, uvula midline. Mucous membranes moist. Neck: Trachea midline, no thyromegaly or masses palpated, and no cervical lymphadenopathy. Supple, full range of motion without nuchal rigidity, or vertebral point tenderness. No Meningismus. Chest/axilla: Normal chest wall appearance and motion. Nontender with no deformity. No lesions are appreciated. Cardiovascular: Regular rate and rhythm with a normal S1 and S2. No gallops, murmurs, or rubs. Normal PMI, no JVD. No pulse deficits. Respiratory: Lungs have equal breath sounds bilaterally, clear to auscultation and percussion. No rales, rhonchi or wheezes noted. No increased work of breathing, no retractions or nasal flaring. Back: No spinal tenderness. No costovertebral tenderness. Full range of motion. Skin: Warm, dry with normal turgor. Normal color with no rashes, no lesions, and no evidence of cellulitis. MS/ Extremity: Pulses equal, no cyanosis. Neurovascular intact. Full, normal range of motion. Neuro: Awake and alert, GCS 15, oriented to person, place, time, and situation. Cranial nerves II-XII grossly intact. Motor strength 5/5 in all extremities. Sensory grossly intact. Cerebellar exam normal. Normal gait. Psych: Awake, alert, with orientation to person, place and time. Behavior, mood, and affect are within normal limits. Vital Signs: 00:46 BP 137 / 89; Pulse 75; Resp 18; Pulse Ox 95% ; Weight 82.1 kg; Height 5 ft. 5 in. kl (165.10 cm); Pain 0/10; 02:41 BP 138 / 91; Pulse 70; Resp 16; Pulse Ox 100% on R/A; kl 00:46 Body Mass Index 30.12 (82.10 kg, 165.10 cm) MDM: 01:08 Data reviewed: vital signs, nurses notes. ED course: 42-year-old male with right-sided sp3 abdominal pain. Diagnosis includes cholecystitis, appendicitis, cholelithiasis, functional abdominal pain. I am not highly suspicious for acute coronary syndrome, vascular pathology including aneurysm and/or dissection. Also highly doubt kidney stone given the fact the patient has had one a long time ago and states that this is not at all similar to that. Clinically also ruled out pyelonephritis. If work-up is negative, will discharge patient home to PCP follow-up and general precautions. If CT is positive for surgical pathology, will admit patient to appropriate service.. 01:10 Patient medically screened. sp3 03:57 ED course: CT scan demonstrates no significant abnormality. Laboratory values reviewed sp3 and no concerning findings noted. Patient's pain is completely gone and is resting comfortably. He is asking for discharge. We will discharge him with follow-up to PCP as needed. I have educated him on gallstones and the fact that he has them. No further intervention needed at this time.. 03/20 01:03 Order name: CBC with Diff; Complete Time: 02:41 sp3 03/20 01:03 Order name: CMP; Complete Time: 03:57 sp3 03/20 01:03 Order name: Lipase; Complete Time: 03:57 sp3 03/20 01:03 Order name: Urine Microscopic Only; Complete Time: 03:57 sp3 03/20 02:41 Order name: Urine Dipstick-Ancillary; Complete Time: 03:57 EDMS 03/20 01:03 Order name: CT Abd/Pelvis - IV Contrast Only sp3 03/20 01:03 Order name: IV Saline Lock; Complete Time: 04:12 sp3 03/20 01:03 Order name: Labs collected and sent; Complete Time: 04:12 sp3 03/20 01:03 Order name: Urine Dipstick-Ancillary (obtain specimen); Complete Time: 04:12 sp3 03/20 01:08 Order name: Abdomen EDMS Administered Medications: No medications were administered Disposition Summary: 03/20/22 03:58 Discharge Ordered Location: Home sp3 Condition: Stable sp3 Diagnosis - Abdominal pain, Generalized sp3 - Other cholelithiasis without obstruction sp3 Followup: sp3 - With: Private Physician - When: Upon discharge from the Emergency Department - Reason: Recheck today's complaints Discharge Instructions: - Discharge Summary Sheet sp3 - Abdominal Pain, Adult sp3 - Cholelithiasis sp3 Forms: - Medication Reconciliation Form sp3 - Thank You Letter sp3 - Antibiotic Education sp3 - Prescription Opioid Use sp3 Signatures: Dispatcher [employer] EDFlor Cullen RN RN kl Patel, Setul, MD MD sp3 Corrections: (The following items were deleted from the chart) 01:16 01:06 Facial Bones W/ MPR+CT.RAD.BRZ ordered. EDMS EDMS 01:17 01:04 Head C Spine MPR Wo Con+CT.RAD.BRZ ordered. EDMS EDMS 01:33 00:59 Chest Single View+RAD.RAD.BRZ ordered. EDMS EDMS
--- NOTE | 2022-03-20 13:30 | RAD REPORT ---
EXAM DESCRIPTION: CT - Abdomen Pelvis W Contrast - 03/20/2022 3:16 am CLINICAL HISTORY: 42 years Male Right sided Abd pain COMPARISON: CT abdomen pelvis 11/19/2017. TECHNIQUE: CT of the abdomen and pelvis with intravenous contrast. All CT scans at this facility use dose modulation, iterative reconstruction, and/or weight based dosi ng when appropriate to reduce radiation dose to as low as reasonably achievable. FINDINGS: Exam is motion degraded. Lower thorax: Lung bases are clear Abdomen: Stomach: Within normal limits Liver: No focal lesions. Hepatic steatosis. No intrahepatic ductal distention. Gallbladder: Cholelithiasis. Pancreas: Within normal limits Spleen: Within normal limits Right kidney: No hydronephrosis. No focal lesion. Left kidney: No hydronephrosis. No focal lesion. Adrenal glands: Within normal limits Vascular structures: Within normal limits Nodes: No lymphadenopathy by size criteria Pelvis: Small bowel: No significant distention. Appendix: Within normal limits Colon: No distention or acute pericolonic edema. Colonic diverticulosis. No free intraperitoneal fluid or air. Bones: No acute bone findings. Right L5 pars defect. Chronic appearing compression deformity at T12. Bladder: Unremarkable. No pelvic mass or adenopathy. IMPRESSION: 1. Exam is motion degraded. 2. No acute abdominopelvic findings. No evidence of acute appendicitis. 3. Colonic diverticulosis without diverticulitis. 4. Hepatic steatosis. 5. Cholelithiasis. Electronically signed by: Brittny Conley MD 03/20/2022 3:33 AM CDT Due to temporary technical issues with the PACS/Fluency reporting system, reports are being signed by the in house radiologists without review as a courtesy to insure prompt reporting. The interpreting radiologist is fully responsible for the content of the report.
[2022-03-21 15:34] VITALS: BP 138/91; O2SAT 100
== END 2022-03-20 04:22 | disposition home or self-care (01) ==
LOC: ER 00:31
DX: K80.80 Other cholelithiasis without obstruction (principal); I10 Essential (primary) hypertension; Z88.1 Allergy status to other antibiotic agents; Z88.5 Allergy status to narcotic agent; Z88.8 Allergy status to other drugs, medicaments and biological substances
CPT/HCPCS: 85025; 36415; 83690; 80053; 74177; 99283; Q9967; 81003; 81015

== ENCOUNTER 2024-09-18 20:45 | Emergency (ER) | payer MEDICAID ==
[2024-09-18] MEDS ORDERED: methocarbamoL 500 MG TAB ONE (21:25)
[2024-09-18] MEDS ORDERED: ACETAMINOPHEN 500 MG TAB ONE (21:25)
[2024-09-18] MEDS ORDERED: LIDOCAINE 4% PATCH ONE (21:25)
[2024-09-18] MEDS ORDERED: IBUPROFEN 400 MG TAB ONE (21:25)
--- NOTE | 2024-09-18 22:46 | ER ---
Nurse's Notes [facility] Name: Cuba Rosales Age: 44 yrs Sex: Male : 1980 Arrival Date: 09/18/2024 Time: 20:45 Bed 19 Private MD: Diagnosis: Low back pain Presentation: 09/18 21:02 Chief complaint: Patient states: I have lower back pain that started today. Coronavirus bm8 screen: At this time, the client does not indicate any symptoms associated with coronavirus-19. Ebola Screen: Patient negative for fever greater than or equal to 101.5 degrees Fahrenheit, and additional compatible Ebola Virus Disease symptoms Patient denies exposure to infectious person. Patient denies travel to an Ebola-affected area in the 21 days before illness onset. No symptoms or risks identified at this time. Initial Sepsis Screen: Does the patient meet any 2 criteria? No. Patient's initial sepsis screen is negative. Does the patient have a suspected source of infection? No. Patient's initial sepsis screen is negative. Risk Assessment: Do you want to hurt yourself or someone else?. Onset of symptoms was September 17, 2024 at 17:00. 21:02 Method Of Arrival: Ambulatory bm8 21:02 Acuity: PUMA 3 bm8 Triage Assessment: 21:03 General: Appears in no apparent distress. comfortable, Behavior is calm, cooperative, bm8 appropriate for age. Pain: Complains of pain in back Pain currently is 8 out of 10 on a pain scale. EENT: No deficits noted. No signs and/or symptoms were reported regarding the EENT system. Neuro: No deficits noted. Level of Consciousness is awake, alert, obeys commands, Oriented to person, place, time, situation, Appropriate for age. Cardiovascular: Denies chest pain, Heart tones S1 S2 present Capillary refill < 3 seconds in bilateral fingers Patient's skin is warm and dry. Respiratory: Airway is patent Respiratory effort is even, unlabored, Respiratory pattern is regular, symmetrical, Breath sounds are clear bilaterally. Musculoskeletal: Circulation, motion, and sensation intact. Capillary refill < 3 seconds, in bilateral fingers. Range of motion: intact in all extremities, Reports pain in back Pain is 8 out of 10 on a pain scale. Historical: - Allergies: 21:03 Bactrim; bm8 21:03 Benadryl; bm8 21:03 Clindamycin; bm8 21:03 Demerol; bm8 21:03 Lisinopril; bm8 - Home Meds: 21:03 losartan 50 mg Oral tab 1 tab once daily [Active]; bm8 - PMHx: 21:03 Hypertension; bm8 - PSHx: 21:03 ear tubes (Hypertension); Tonsillectomy; bm8 - Immunization history:: Adult Immunizations up to date. - Infectious Disease History:: Denies. - Social history:: Smoking status: Patient denies any tobacco usage or history of. Screenin:04 [facility] ED Fall Risk Assessment (Adult) History of falling in the last 3 months, cp4 including since admission No falls in past 3 months (0 pts) Confusion or Disorientation No (0 pts) Intoxicated or Sedated No (0 pts) Impaired Gait No (0 pts) Mobility Assist Device Used No (0 pt) Altered Elimination No (0 pt) Score/Fall Risk Level 0 - 2 = Low Risk Oriented to surroundings, Maintained a safe environment, Assessed \T\ reinforced patient's understanding of fall precautions, Hourly rounding (assess needs \T\ fall precautionary measures) done. Abuse screen: Denies threats or abuse. Denies injuries from another. Nutritional screening: No deficits noted. Tuberculosis screening: No symptoms or risk factors identified. Assessment: 23:04 General: Appears in no apparent distress. uncomfortable, Behavior is calm, cooperative. 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 Gait is steady, Speech is normal, Facial symmetry appears normal, Pupils are PERRLA, Intact. Cardiovascular: Patient's skin is warm and dry. Respiratory: Airway is patent Respiratory effort is even, unlabored. GI: No signs and/or symptoms were reported involving the gastrointestinal system. : No signs and/or symptoms were reported regarding the genitourinary system. EENT: No signs and/or symptoms were reported regarding the EENT system. Derm: No signs and/or symptoms reported regarding the dermatologic system. Musculoskeletal: Reports pain in back. Vital Signs: 21:02 BP 143 / 95; Pulse 122; Resp 18; Temp 99.1; Pulse Ox 95% ; Weight 90.72 kg; Height 5 bm8 ft. 8 in. ; Pain 8/10; 22:34 BP 144 / 93; Pulse 98; Resp 18; Temp 98.4; Pulse Ox 95% ; cp4 21:02 Body Mass Index 30.41 (90.72 kg, 172.72 cm) bm8 21:02 Pain Scale: Adult bm8 ED Course: 20:49 Patient arrived in ED. gm2 20:50 Bharat Velarde PA is PHCP. cp 20:50 Khadar Erickson MD is Attending Physician. cp 20:55 Lake Hernandez, BETINA is Primary Nurse. rg5 21:03 Triage completed. bm8 21:03 Arm band placed on right wrist. bm8 23:04 Bed in low position. Call light in reach. Side rails up X 1. Provided Education on: cp4 back pain. 23:04 No provider procedures requiring assistance completed. Patient did not have IV access cp4 during this emergency room visit. Administered Medications: 21:19 CANCELLED (Physician Discretion): methocarbamol1 grams IVPB once over 1 hrs; (mix in NS cp 100 mL) 21:19 CANCELLED (Physician Discretion): [id number] mg IVP once cp 21:19 CANCELLED (Physician Discretion): [id number] mg IVP once; (not to exceed 40 mg) cp 21:21 Not Given (Patient Refused): ns 0.9% 1000 ml IV at 1 bolus Per protocol; to be given as cp4 a bolus over 60 minutes 21:29 Drug: Methocarbamol PO 1000 mg PO once Route: PO; cp4 23:07 Follow up: Response: No adverse reaction cp4 21:29 Drug: Acetaminophen PO 1000 mg PO once Route: PO; cp4 23:07 Follow up: Response: No adverse reaction cp4 21:29 Drug: Ibuprofen PO 800 mg PO once Route: PO; cp4 23:07 Follow up: Response: No adverse reaction cp4 21:29 Drug: Lidoderm Topical Patch 5 % (700 mg/patch) 1 patches Topical once; leave on for 12 cp4 hours; cover most painful area; may cut into smaller pieces Route: Topical; Site: affected area; 23:07 Follow up: Response: No adverse reaction cp4 Medication: 23:04 VIS not applicable for this client. cp4 Outcome: 22:46 Discharge ordered by . cp 23:04 Discharged to home ambulatory, cp4 23:04 Condition: stable 23:04 Discharge instructions given to patient, family, Instructed on discharge instructions, follow up and referral plans. medication usage, Demonstrated understanding of instructions, follow-up care, medications, Prescriptions given X 3, 23:08 Patient left the ED. cp4 Signatures: Bharat Velarde PA PA cp Potter, Christina cp4 Lourdes Purvis gm2 Iain Amin RN RN bm8 Lake Hernandez RN RN rg5 Corrections: (The following items were deleted from the chart) 21:07 21:02 BP 162 / 106; Pulse 122bpm; Resp 18bpm; Pulse Ox 95%; Temp 99.1F; 90.72 kg; bm8 Height 5 ft. 8 in.; BMI: 30.4; Pain 8/10, Adult; bm8
--- NOTE | 2024-09-18 22:46 | EDPHYS ---
Physician Documentation [facility] Name: Cuba Rosales Age: 44 yrs Sex: Male : 1980 Arrival Date: 09/18/2024 Time: 20:45 Bed 19 Private MD: ED Physician Khadar Erickson HPI: 09/18 21:15 This 44 yrs old Male presents to ER via Ambulatory with complaints of Back Pain. cp 21:15 The patient presents with pain worsening of chronic low back pain. Onset: The cp symptoms/episode began/occurred this morning, and became worse today. The pain does not radiate. 21:15 Associated signs and symptoms: Pertinent negatives: abdominal pain, chest pain, cp constipation, fever, incontinence, numbness, urinary retention, weakness. Historical: - Allergies: 21:03 Bactrim; bm8 21:03 Benadryl; bm8 21:03 Clindamycin; bm8 21:03 Demerol; bm8 21:03 Lisinopril; bm8 - Home Meds: 21:03 losartan 50 mg Oral tab 1 tab once daily [Active]; bm8 - PMHx: 21:03 Hypertension; bm8 - PSHx: 21:03 ear tubes (Hypertension); Tonsillectomy; bm8 - Immunization history:: Adult Immunizations up to date. - Infectious Disease History:: Denies. - Social history:: Smoking status: Patient denies any tobacco usage or history of. ROS: 21:20 Constitutional: Negative for body aches, chills, fever, poor PO intake, cp 21:20 Eyes: Negative for injury, pain, redness, and discharge, cp 21:20 ENT: Negative for drainage from ear(s), ear pain, difficulty swallowing, difficulty handling secretions, 21:20 Cardiovascular: Negative for chest pain, palpitations, 21:20 Respiratory: Negative for cough, shortness of breath, wheezing, 21:20 Abdomen/GI: Negative for abdominal pain, vomiting, diarrhea, constipation, 21:20 Back: Positive for pain at rest, pain with movement, of the low back area and mid back area, 21:20 : Negative for urinary symptoms, hematuria, difficulty urinating, bladder incontinence, testicular pain 21:20 Neuro: Negative for dizziness, headache, numbness, weakness, 21:20 All other systems are negative, Exam: 21:25 Constitutional: The patient appears in no acute distress, alert, awake, non-toxic, well cp developed, well nourished, obese, uncomfortable, 21:25 Head/Face: Normocephalic, atraumatic. cp 21:25 Eyes: Periorbital structures: appear normal, Conjunctiva: normal, Sclera: no appreciated abnormality, Lids and lashes: appear normal, bilaterally, 21:25 ENT: External ear(s): are unremarkable, Nose: is normal, Mouth: Lips: moist, Oral mucosa: moist, Posterior pharynx: Airway: no evidence of obstruction, patent, 21:25 Neck: ROM/movement: is normal, is supple, without pain, no range of motions limitations, 21:25 Chest/axilla: Inspection: normal, 21:25 Cardiovascular: Rate: tachycardic, 21:25 Respiratory: the patient does not display signs of respiratory distress, Respirations: normal, no use of accessory muscles, no retractions, labored breathing, is not present, Breath sounds: are clear throughout, no decreased breath sounds, no stridor, no wheezing, 21:25 Abdomen/GI: Inspection: obese Palpation: abdomen is soft and non-tender, in all quadrants, 21:25 Back: pain, that is moderate, of the low back area and mid back area, ROM is normal, 21:25 Neuro: Motor: moves all fours, strength is normal, Sensation: no obvious gross deficits, Vital Signs: 21:02 BP 143 / 95; Pulse 122; Resp 18; Temp 99.1; Pulse Ox 95% ; Weight 90.72 kg; Height 5 bm8 ft. 8 in. ; Pain 8/10; 22:34 BP 144 / 93; Pulse 98; Resp 18; Temp 98.4; Pulse Ox 95% ; cp4 21:02 Body Mass Index 30.41 (90.72 kg, 172.72 cm) bm8 21:02 Pain Scale: Adult bm8 MDM: 21:02 Medical Screening Exam initiated cp 22:45 Data reviewed: vital signs, nurses notes, and as a result, I will discharge patient. cp 22:45 Differential diagnosis: Cholelithiasis chronic back pain, Pyelonephritis ruptured disc, cp Ureterolithiasis. I considered the following discharge prescriptions or medication management in the emergency department Medications were administered in the Emergency Department. See MAR. Care significantly affected by the following chronic conditions: Hypertension, Obesity. Counseling: I had a detailed discussion with the patient and/or guardian regarding the historical points, exam findings, and any diagnostic results supporting the discharge/admit diagnosis, to return to the emergency department if symptoms worsen or persist or if there are any questions or concerns that arise at home. Response to treatment: the patient's symptoms have markedly improved after treatment, and as a result, I will discharge patient. Admission orders: after a detailed discussion of the patient's condition and case, the admit orders are written by me. Administered Medications: 21:19 CANCELLED (Physician Discretion): methocarbamol1 grams IVPB once over 1 hrs; (mix in NS cp 100 mL) 21:19 CANCELLED (Physician Discretion): [id number] mg IVP once cp 21:19 CANCELLED (Physician Discretion): [id number] mg IVP once; (not to exceed 40 mg) cp 21:21 Not Given (Patient Refused): ns 0.9% 1000 ml IV at 1 bolus Per protocol; to be given as cp4 a bolus over 60 minutes 21:29 Drug: Methocarbamol PO 1000 mg PO once Route: PO; cp4 23:07 Follow up: Response: No adverse reaction cp4 21:29 Drug: Acetaminophen PO 1000 mg PO once Route: PO; cp4 23:07 Follow up: Response: No adverse reaction cp4 21:29 Drug: Ibuprofen PO 800 mg PO once Route: PO; cp4 23:07 Follow up: Response: No adverse reaction cp4 21:29 Drug: Lidoderm Topical Patch 5 % (700 mg/patch) 1 patches Topical once; leave on for 12 cp4 hours; cover most painful area; may cut into smaller pieces Route: Topical; Site: affected area; 23:07 Follow up: Response: No adverse reaction cp4 Disposition: 09/19 21:05 Co-signature as Attending Physician, Khadar Erickson MD I agree with the assessment sp4 and plan of care. I reviewed the patient's care provided by the Advanced Practice Provider and agree with the diagnosis and treatment plan. Disposition Summary: 09/18/24 22:46 Discharge Ordered Notes: Location: Home cp Problem: chronic cp Symptoms: have improved cp Condition: Stable cp Diagnosis - Low back pain cp Followup: cp - With: Private Physician - When: 2 - 3 days - Reason: Recheck today's complaints Discharge Instructions: - Discharge Summary Sheet cp - Chronic Back Pain cp - Heat Therapy cp - Back Exercises cp Forms: - Medication Reconciliation Form cp - Antibiotic Education cp - Prescription Opioid Use cp - Patient Portal Instructions cp - Leadership Thank You Letter cp Prescriptions: - Anaprox DS 550 mg Oral Tablet - take 1 tablet ORAL route every 12 hours As needed; 20 tablet; Refills: 0, cp Product Selection Permitted - Medrol (Breezy) 4 mg Oral Tablets, Dose Pack - take 1 tablet ORAL route as directed - follow package instructions; 1 packet; cp Refills: 0, Product Selection Permitted - methocarbamol 750 mg Oral tablet - take 1 tablet ORAL route 3 times per day; 30 tablet; Refills: 0, Product cp Selection Permitted Signatures: Dispatcher [employer] EDMS Bharat Velarde PA PA cp Khadar Erickson MD MD sp4 Kristen Hdez cp4 Iain mAin, RN RN bm8 Corrections: (The following items were deleted from the chart) 09/18 21:19 21:14 Methocarbamol IVPB 1 grams IVPB once over 1 hrs; (mix in NS 100 mL) ordered. cp cp 21:19 21:14 Ketorolac IVP 15 mg IVP once ordered. cp cp 21:19 21:14 Dexamethasone IVP 10 mg IVP once; (not to exceed 40 mg) ordered. cp cp 21:21 21:14 IV Saline Lock ordered. cp cp4 21:21 21:14 Labs collected and sent ordered. cp cp4 09/19 22:57 09/18 21:15 Onset: The symptoms/episode began/occurred yesterday, and became worse this cp morning, cp
[2024-09-18 23:21] VITALS: O2SAT 95
[2024-09-18 23:22] VITALS: BP 144/93; TEMP 98.4
== END 2024-09-18 23:08 | disposition home or self-care (01) ==
LOC: ER 20:45
DX: M54.50 Low back pain, unspecified (principal); I10 Essential (primary) hypertension
CPT/HCPCS: J2003

== ENCOUNTER 2024-09-19 13:27 | Emergency (ER) | payer MEDICAID ==
--- OUTSIDE RECORDS SUMMARY | 2024-09-19 13:34 | XMS REPORT | Continuity of Care Document ---
Author Name Unknown Address [address] [facility] [place] [address] [facility] [place] Address [address] [facility] [place] [address] Care Team Providers Care Boilermaking Supervisor Name Role Phone Simon Mae Primary Care Physician ROSALBA BARFIELD Attending Clinician Unavailable MASON RUTHERFORD Attending Clinician Unavailable LINA CHOWDHURY Attending Clinician Unavailable SOLA COLES Attending Clinician Unavailable SWEETIE EAGLE Attending Clinician Unavailable SWEETIE EAGLE Attending Clinician Unavailable Sweetie Eagle DO Attending Clinician [phone] MURRAY MOORE Attending Clinician UnavailMurray Koch Attending Clinician + [phone] CLAUDIA BOOTH Attending Clinician Unavailable Flor Arboleda Attending Clinician + [phone] Unknown, Attending Attending Clinician Unavailab FLOR Prajapati Attending Clinician UnavailErinn Shafer MD Attending Clinician +[phone] MAYURI EPPERSON Attending Clinician Unavailable Mayuri Epperson MD Attending Clinician +[phone] AYALA CORADO Attending Clinician Unavailable Ayala Patel Attending Clinician [phone] Alex Perez Attending Clinician +[phone] ALEX MEJIA Attending Clinician Unavailable CARYN HARDEN Attending Clinician Unavailable Caryn Harden MD Attending Clinician [phone] Doctor Unassigned, Nuevo Attending Clinician U navailable JALYN ONEILL Attending Clinician Unavailable [facility] Attending Clinician Unavailable Jeff REFUGE MANAGER, Jalyn Attending Clinician [phone] [place] REFUGE MANAGER, Ángel B Attending Clinician +- [phone] ÁNGEL MCLAUGHLIN B Attending Clinician Unavailable Elizabet Pena Attending Clinician [phone] ELIZABET TRAMMELL Attending Clinician Unavailable Lab, Ang - Db Attending Clinician Unavailable ERINN MATTHEWS Attending Clinician Unavailable EDGARDO Attending Clinician Unavailable Provider, [facility] Attending Clinician Unavailable Provider, [facility] Attending Clinician Un available ROWAN SADLER Attending Clinician Unavailable Isaac Zavala Attending Clinician [phone] ALISSA OWENS Attending Clinician UnavailAlissa Lee MD Attending Clinician + [phone] Nurse, Adc Pob Immunization Attending Clinician Unavailable Norris Almeida DO Attending Clinician [phone] NORRIS ALMEIDA Attending Clinician Unavail able 2, [facility] Attending Clinician Unavailable Terry Rangel MD Attending Clinician [phone] ISAAC CONTI Attending Clinician UnavailFroilan Muñoz MD Attending Clinician [phone] Ibikunle REFUGE MANAGER, Deepak Gage Attending Clinician +[phone] ELIZABET TRAMMELL Admitting Clinician Unavailable EDGARDO Admitting Clinician Unavailable Payers Payer Name Policy Type Policy Number Effective Date Expirati on Date Source [facility] HMO-POS 16 [id number] 2024 00:00:00 MEDICARE PART A \\T\\ B [id number] 2003 00:00:00 [facility] DUAL COMP HMO D SNP [id number] 2022 00:00:00 2024 00:00:00 [employer] MEDICARE ADVANTAGEUHC MEDICARE COMPLETE [id number] 06/2020-PresentMed icare Adv PPO [id number] 2021 [id number]00 Problems Condition Name Condition Details Condition Category Status Onset Date Resolution Date Last Treatment Date Treating Clinician Comments Source Bipolar disorder, unspecifie d (multi HCC) Bipolar disorder, unspecifie d (multi HCC) Disease Active 09-14 00:00: 00 Michelle tse Obesity (BMI 30.0-34.9) Obesity (BMI 30.0-34.9) Disease Active 06-30 00:00: 00 Michelle tse Abnormal liver ultrasound Abnormal liver ultrasound Disease Active 09-18 00:00: 00 [facility] Gallstones Gallstones Disease Active 09-18 00:00: 00 [facility] Mixed hyperlipid emia Mixed hyperlipid emia Disease Active 06-22 00:00: 00 Michelle tse Elevated hemoglobin Elevated hemoglobin Disease Active 08-30 00:00: 00 [facility] Elevated AST (SGOT) Elevated AST (SGOT) Disease Active 08-30 00:00: 00 [facility] Elevated bilirubin Elevated bilirubin Disease Active 08-30 00:00: 00 [facility] Abnormal LFTs Abnormal LFTs Disease Active 16 00:00: 00 [facility] Obesity (BMI 30-39.9) Obesity (BMI 30-39.9) Disease Active 02-25 00:00: 00 [facility] Dermatitis Dermatitis Disease Active 02-25 00:00: 00 [facility] Essential hypertensi on, benign Essential hypertensi on, benign Disease Active 06-25 00:00: 00 [facility] Primary hypertensi on Primary hypertensi on Disease Active - 00:00: 00 Michelle tse Valvular heart disease Valvular heart disease Disease Active [facility] Erythrocyt osis Erythrocyt osis Disease Active [facility] Dyslipidem ia Dyslipidem ia Disease Active [facility] Prediabete s Prediabete s Disease Active [facility] Elevated LFTs Elevated LFTs Disease Resolve d 2-20 00:00: 00 2020-02-26 00:00:00 2020-02-26 21:40:02 [facility] Nausea & vomiting Nausea & vomiting Disease Resolve d 2-07 00:00: 00 2020-02-26 00:00:00 2020-02-26 21:39:56 [facility] Allergies, Adverse Reactions, Alerts Allergy Name Allergy Type Status Severity Reaction(s) Onset Date Inactive Date Treating Clinician Comments Source Gnp Allergy Propensi ty to adverse reaction s Active 06-30 00:00: 00 Michelle Roaold - Externa l Lisinopr il Propensi ty to adverse reaction s Active 06-30 00:00: 00 Michelle Roaold - Externa l Sulfa Drugs Propensi ty to adverse reaction s Active 06-30 00:00: 00 Michelle Roaold - Externa l lisinopr il Propensi ty to adverse reaction to drug Active 8-29 00:00: 00 Angel Lynch Sulfamet hoxazole W-Trimet hoprim Propensi ty to adverse reaction s Active Swelling 6-14 00:00: 00 Michelle Roaold - Externa l SULFAMET HOXAZOLE -TRIMETH OPRIM DRUG Active Swelling 6 00:00: 00 [facility] Sulfa Drugs (Not Checked) Propensi ty to adverse reaction to drug Active - 00:00: 00 Angel Lynch Codeine Propensi ty to adverse reaction s Active 11-28 00:00: 00 Michelle Rojo - Externa l Benadryl - Injectio n Propensi ty to adverse reaction to drug Active 11-28 00:00: 00 Angel Lynch Diphenhy dramine Propensi ty to adverse reaction s Active 5-31 00:00: 00 Other Reaction( s): Unknown Michelle Seybold - Externa l Hydrocod one-Acet aminophe n Propensi ty to adverse reaction s Active Itching 07-23 00:00: 00 Michelle Seybold - Externa l Hydrocod one Propensi ty to adverse reaction s Active Itching 07-23 00:00: 00 [facility] Sulfa (Sulfona mide Antibiot ics) Propensi ty to adverse reaction s Active Rash 07-23 00:00: 00 [facility] HYDROCOD ONE DRUG INGREDI Active ITCHING 07-23 00:00: 00 [facility] SULFA (SULFONA MIDE ANTIBIOT ICS) Drug Class Active Rash 07-23 00:00: 00 [facility] HYDROCOD ONE-ACET AMINOPHE N DRUG Active ITCHING 07-23 00:00: 00 [facility] Diphenhy dramine Propensi ty to adverse reaction s Active Swelling 06-25 00:00: 00 Michelle Roaold - Externa l DIPHENHY DRAMINE HCL DRUG INGREDI Active Swelling 06-25 00:00: 00 [facility] Lisinopr il Propensi ty to adverse reaction s Active Other - See comments 2016-06 00:00: 00 [facility] LISINOPR IL DRUG INGREDI Active Other-Cmnt 2016-06 00:00: 00 [facility] Clindamy robert Propensi ty to adverse reaction s Active 2011-06 00:00: 00 Other Reaction( s): Hives/Chadwick h Michelle Seybold - Externa l Lisinopr il Propensi ty to adverse reaction s Active 2011-06 00:00: 00 Other Reaction( s): Anaphylax is, Other - See comments Michelle Seybold - Externa l Sulfa Drugs Propensi ty to adverse reaction s Active Rash 2011-06 00:00: 00 Other Reaction( s): Hives/Chadwick h Michelle Seybold - Externa l Trimetho prim Propensi ty to adverse reaction s Active 2011-06 00:00: 00 Other Reaction( s): Hives/Chadwick h Michelle Beasley l Social History Social Habit Start Date Stop Date Quantity Comments Source Sexual orientation Jesús Rojo - External Gender identity [facility] History of Social function 2024-09-14 00:00:00 2024-09-14 00:00:00 Michelle Rojo - External Sex 2024-04-06 05:21:10 2024-04-06 05:21:10 Male (finding) Michelle Rojo - External Alcoholic beverage intake 2024-03-23 00:00:00 2024-03-23 00:00:00 Ex-drinker (finding) [facility] Alcohol intake 2023-06-12 00:00:00 2023-06-12 00:00:00 Ex-drinker (finding) [facility] Exposure to SARS-CoV-2 (event) 2022-10-19 00:00:00 2022-10-29 13:32:00 Not sure [facility] Tobacco use and exposure 2022-05-14 00:00:00 2022-05-14 00:00:00 Smokeless tobacco non-user [facility] Sex assigned at 1980 00:00:00 1980 00:00:00 Michelle emma - External Smoking Status Start Date Stop Date Source Tobacco smoking consumption unknown Michelle Alia - External Never smoked tobacco Michelle emma - External Medications Ordered Medication Name Filled Medication Name Start Date Stop Date Current Medication? Ordering Clinician Indication Dosage Frequency Signature (SIG) Comments Components Source Ketoconazol e 2 % apply externally Cream 09-14 00:00: 00 Yes [id number] Apply to rash twice a day. Michelle tse Topiramate 25 MG oral Tablet 09-14 00:00: 00 Yes [id number] 25mg Q.5D Take 1 tablet (25 mg total) by mouth 2 times daily. Michelle tse Selenium Sulfide 2.5 % apply externally Lotion 09-14 00:00: 00 Yes [id number] Apply 15 min before shower and then rinse . May use daily or PRN. Michelle tse Albuterol HFA 108 (90 Base) MCG/ACT IN AERS 07-14 13:56: 20 Yes 2{puff} Q.25D Inhale 2 puffs into the lungs every 6 hours as needed for wheezing. Michelle tse Losartan Potassium (COZAAR) 50 MG oral Tablet 07-14 00:00: 00 Yes [id number] 50mg QD Take 1 tablet (50 mg total) by mouth daily. Michelle tse Topiramate 25 MG oral Tablet 07-14 00:00: 00 09-14 00:00 :00 No [id number] 25mg Q.5D Take 1 tablet (25 mg total) by mouth 2 times daily. Michelle tse Albuterol HFA 108 (90 Base) MCG/ACT IN AERS 06-30 13:57: 20 Yes 2{puff} Q.25D Inhale 2 puffs into the lungs every 6 hours as needed for wheezing. Michelle tse Amoxicillin 875 MG oral Tablet 06-30 00:00: 00 07-14 00:00 :00 No [id number] 875mg Q.5D Take 1 tablet (875 mg total) by mouth 2 times daily. Michelle tse methylPREDN ISolone 4 MG oral Tablet Therapy Pack 06-30 00:00: 00 07-14 00:00 :00 No [id number] 1{elidia} Take 1 elidia by mouth See Admin Instructio ns Use as directed. Michelle tse Dextrometho janet-Fili ENesin (Mucinex DM) 30-600 MG oral Tablet 12 Hour Sustained Release 06-30 00:00: 00 07-14 00:00 :00 No [id number] 1{tbl} Take 1 tablet by mouth every 12 hours. Michelle tse losartan 50 mg tablet 2023-06 00:00: 00 Yes 1mg Angel Merari Lynch triamcinolo ne acetonide 0.1 % topical ointment 02-17 00:00: 00 Yes 1% Angel Merari Lynch losartan 50 mg tablet 01-25 00:00: 00 Yes 1mg Angel Lynch azithromyci n 250 mg tablet 01-16 00:00: 00 Yes [id number] 2 tabs today; 1 tab daily x 4 days disp 6 tabs [facility] predniSONE 10 mg tablet 01-16 00:00: 00 01-22 04:59 :00 No [id number] 20mg Take 2 tablets by mouth in the morning for 5 days. [facility] albuterol 90 mcg/actuati on inhaler 01-09 00:00: 00 01-20 04:59 :00 No [id number] 2{puff} Inhale 2 Puffs every 6 (six) hours as needed for Wheezing or Shortness of Breath for up to 10 days. [facility] benzonatate 200 mg capsule 01-09 00:00: 00 01-20 04:59 :00 No [id number] 200mg Take 1 capsule by mouth 3 (three) times daily as needed for Cough for up to 10 days. [facility] azithromyci n 250 mg tablet 01-09 00:00: 00 01-16 00:00 :00 No [id number] 2 tabs today; 1 tab daily for 4 days [facility] predniSONE 20 mg tablet 01-09 00:00: 00 01-15 04:59 :00 No [id number] 20mg Take 1 tablet by mouth in the morning for 5 days. [facility] losartan 50 mg tablet 12-21 00:00: 00 Yes 1mg Angel Lynch Losartan Potassium (COZAAR) 50 MG oral Tablet 12-21 00:00: 00 07-14 00:00 :00 No 50mg 1 tablet (50 mg total). Michelle Rojo - Externdena l amoxicillin 875 mg-potassiu m clavulanate 125 mg tablet 12-04 00:00: 00 Yes mg Angel Lynch ciprofloxac in 0.3 %-dexametha sone 0.1 % ear drops,suspe nsion 12-04 00:00: 00 Yes % Angel Lynch Ciprofloxac in-dexAMETH asone (Ciprodex) 0.3-0.1 % otic Suspension 12-04 00:00: 00 07-14 00:00 :00 No Michelle tse amoxicillin -clavulanat e 875-125 mg per tablet 12-03 00:00: 00 12-14 04:59 :00 No [id number] 1{tbl} Take 1 tablet by mouth in the morning and 1 tablet in the evening. Do all this for 10 days. [facility] ciprofloxac in-dexameth asone 0.3-0.1 % otic drops 12-03 00:00: 00 12-11 04:59 :00 No [id number] 4[drp] Place 4 Drops in left ear in the morning and 4 Drops in the evening. Do all this for 7 days. [facility] Cipro HC 0.2 %-1 % ear drops,suspe nsion 11-25 00:00: 00 Yes 1% Angel Lynch doxycycline hyclate 100 mg tablet 11-09 00:00: 00 Yes mg Angel Lynch azelastine 137 mcg (0.1 %) nasal spray 11-09 00:00: 00 Yes (0.1 %) Angel Lynch Azelastine HCl 0.1 % nasal Solution 11-09 00:00: 00 Yes 1{spray } Q.5D 1 spray by nasal route 2 times daily. Michelle tse FLUTICASONE PROPIONATE, NASAL, 50 MCG/ACT nasal Suspension 11-09 00:00: 00 07-14 00:00 :00 No Michelle tse benzonatate 100 mg capsule 11-09 00:00: 00 01-09 00:00 :00 No [id number] 200mg Take 2 capsules by mouth every 8 (eight) hours as needed for Cough. [facility] doxycycline hyclate 100 mg tablet 5- 00:00: 00 11-20 04:59 :00 No [id number] 100mg Take 1 tablet by mouth in the morning and 1 tablet in the evening. Do all this for 10 days. [facility] losartan 50 mg tablet 3-13 00:00: 00 Yes [id number] 50mg Take 1 tablet by mouth every morning. MUST BE SEEN FOR FURTHER REFILLS [facility] azithromyci n (ZITHROMAX Z-ELIDIA) 250 mg tablet 2022-06 00:00: 00 01-09 00:00 :00 No [id number] Z pack as directed. [facility] albuterol 90 mcg/actuati on inhaler 2022-06 00:00: 00 06-23 05:59 :00 No [id number] 2{puff} Inhale 2 Puffs every 6 (six) hours as needed for Wheezing for up to 10 days. [facility] benzonatate 200 mg capsule 2022-06 00:00: 00 06-23 05:59 :00 No [id number] 200mg Take 1 capsule by mouth 3 (three) times daily as needed for Cough for up to 10 days. [facility] dexamethaso ne (DECADRON) injection 10 mg 01-10 21:00: 00 01-10 21:09 :00 No [id number] 10mg [facility] predniSONE 20 mg tablet 01-10 00:00: 00 01-09 00:00 :00 No [id number] Take 2 tablets daily for 2 days, then one tablet daily for 3 days, then half tablet daily for 3 days, then stop. [facility] triamcinolo ne acetonide 0.1 % ointment 01-10 00:00: 00 01-18 04:59 :00 No [id number] Apply to area(s) 2 (two) times daily for 7 days. [facility] albuterol 90 mcg/actuati on inhaler 30 00:00: 00 01-09 00:00 :00 No [id number] 2{puff} Inhale 2 Puffs every 6 (six) hours as needed for Wheezing or Shortness of Breath. [facility] dextrometho janet-fili enesin 10-100 mg/5 mL solution 30 00:00: 00 11-09 00:00 :00 No [id number] 10mL Take 10 mL by mouth every 6 (six) hours as needed for Cough. [facility] benzonatate 200 mg capsule 10-04 00:00: 00 10-15 04:59 :00 No [id number] 200mg Take 1 capsule by mouth 3 (three) times daily as needed for Cough for up to 10 days. [facility] albuterol 90 mcg/actuati on inhaler 10-04 00:00: 00 10-15 04:59 :00 No [id number] 2{puff} Inhale 2 Puffs every 6 (six) hours as needed for Wheezing for up to 10 days. [facility] predniSONE 20 mg tablet 10-04 00:00: 00 10-10 04:59 :00 No [id number] 20mg Take 1 tablet by mouth in the morning for 5 days. [facility] LOSARTAN POTASSIUM 50 MG TABS 08-07 00:00: 00 Yes Angel Lynch losartan 50 mg tablet 08-07 00:00: 00 09-01 00:00 :00 No [id number] 50mg Take 1 tablet by mouth every morning. [facility] losartan 50 mg tablet 07-14 00:00: 00 08-07 00:00 :00 No [id number] TAKE ONE TABLET BY MOUTH EVERY MORNING [facility] LOSARTAN 50 mg tablet 2021-06 00:00: 00 Yes [id number] TAKE ONE TABLET BY MOUTH EVERY MORNING [facility] albuterol 90 mcg/actuati on inhaler 2021-06 00:00: 00 05-25 05:59 :00 No [id number] 2{puff} Inhale 2 Puffs every 6 (six) hours as needed for Wheezing or Shortness of Breath for up to 10 days. [facility] benzonatate 200 mg capsule 2021-06 00:00: 00 05-25 05:59 :00 No [id number] 200mg Take 1 capsule by mouth 3 (three) times daily as needed for Cough for up to 10 days. [facility] predniSONE 20 mg tablet 2021-06 00:00: 00 05-20 05:59 :00 No [id number] 40mg Take 2 tablets by mouth in the morning for 5 days. [facility] losartan 50 mg tablet 2021-06 00:00: 00 06-13 00:00 :00 No [id number] 50mg Take 1 tablet by mouth in the morning. Follow-up for refills and fasting labs. [facility] oseltamivir 75 mg capsule 2021-06 00:00: 00 08-07 00:00 :00 No [facility] Dose Unknown 11-28 00:00: 00 Yes Angel Lynch Zoloft 50 mg tablet 11-28 00:00: 00 Yes 1mg Angel Lynch &lt 11-28 00:00: 00 Yes Angel Lynch SERTRALINE HCL 50 MG TABS 11-28 00:00: 00 Yes Angel Lynch LOSARTAN POTASSIUM 50 MG TABS 11-22 00:00: 00 Yes Angel Lynch triamcinolo ne acetonide 0.1 % cream 11-07 00:00: 00 08-07 00:00 :00 No [id number] Apply to area(s) 2 (two) times daily. [facility] permethrin 5 % cream 11-07 00:00: 00 11-08 04:59 :00 No [id number] Apply to area(s) once now for 1 dose. Apply jawline to soles of feet. Leave on 8-14 hours. Repeat in 14 days if needed. [facility] DICYCLOMINE HYDROCHLORI DE 10 MG - 00:00: 00 Yes Angel Lynch AZITHROMYCI N 250 MG TABS - 00:00: 00 Yes Angel Lynch dicyclomine 10 mg capsule - 00:00: 00 11-07 00:00 :00 No [id number] 10mg Take 1 capsule by mouth 3 (three) times daily as needed for Abdominal pain. [facility] losartan 50 mg tablet - 00:00: 00 05-13 00:00 :00 No [id number] 50mg Take 1 tablet by mouth daily. [facility] Immunizations Ordered Immunization Name Filled Immunization Name Date Status Comments Source SARS-COV-2 COVID-19 PFIZER VACCINE 2024-03-16 18:03:00 Completed [facility] SARS-COV-2 COVID-19 PFIZER VACCINE 2024-01-17 20:52:00 Completed [facility] SARS-COV-2 COVID-19 PFIZER VACCINE 2023-12-09 07:08:00 Completed [facility] SARS-COV-2 COVID-19 PFIZER VACCINE 2023-12-04 23:03:00 Completed [facility] SARS-COV-2 COVID-19 PFIZER VACCINE 2023-11-30 17:00:00 Completed [facility] SARS-COV-2 COVID-19 PFIZER VACCINE 2023-11-10 11:00:00 Completed [facility] SARS-COV-2 COVID-19 PFIZER VACCINE 2023-09-02 00:00:00 Completed [facility] SARS-COV-2 COVID-19 PFIZER VACCINE 2023-06-12 13:20:00 Completed [facility] SARS-COV-2 COVID-19 PFIZER VACCINE 2023-06-03 00:00:00 Completed [facility] SARS-COV-2 COVID-19 PFIZER VACCINE 2022-10-11 00:00:00 Completed [facility] SARS-COV-2 COVID-19 PFIZER VACCINE 2022-09-20 00:00:00 Completed [facility] SARS-COV-2 COVID-19 PFIZER VACCINE 2021-09-04 00:00:00 Completed [facility] SARS-COV-2 COVID-19 PFIZER VACCINE 2021-02-19 00:00:00 Completed [facility] SARS-COV-2 COVID-19 PFIZER VACCINE 2021-02-19 00:00:00 Completed [facility] SARS-COV-2 COVID-19 PFIZER VACCINE 2021-02-19 00:00:00 Completed [facility] SARS-COV-2 COVID-19 PFIZER VACCINE 2021-02-19 00:00:00 Completed [facility] SARS-COV-2 COVID-19 PFIZER VACCINE 2021-02-19 00:00:00 Completed [facility] SARS-COV-2 COVID-19 PFIZER VACCINE 2021-02-19 00:00:00 Completed [facility] SARS-COV-2 COVID-19 PFIZER VACCINE 2021-02-19 00:00:00 Completed [facility] SARS-COV-2 COVID-19 PFIZER VACCINE 2021-02-19 00:00:00 Completed [facility] SARS-COV-2 COVID-19 PFIZER VACCINE 2021-02-19 00:00:00 Completed [facility] SARS-COV-2 COVID-19 PFIZER VACCINE 2021-02-19 00:00:00 Completed [facility] SARS-COV-2 COVID-19 PFIZER VACCINE 2021-02-19 00:00:00 Completed [facility] SARS-COV-2 COVID-19 PFIZER VACCINE 2021-02-19 00:00:00 Completed [facility] SARS-COV-2 COVID-19 PFIZER VACCINE 2021-02-19 00:00:00 Completed [facility] SARS-COV-2 COVID-19 PFIZER VACCINE 2021-02-19 00:00:00 Completed [facility] SARS-COV-2 COVID-19 PFIZER VACCINE 2021-02-19 00:00:00 Completed [facility] SARS-COV-2 COVID-19 PFIZER VACCINE 2021-02-19 00:00:00 Completed [facility] SARS-COV-2 COVID-19 PFIZER VACCINE 2021-02-19 00:00:00 Completed [facility] SARS-COV-2 COVID-19 PFIZER VACCINE 2021-02-19 00:00:00 Completed [facility] SARS-COV-2 COVID-19 PFIZER VACCINE 2021-02-19 00:00:00 Completed [facility] SARS-COV-2 COVID-19 PFIZER VACCINE 2021-02-19 00:00:00 Completed [facility] SARS-COV-2 COVID-19 PFIZER VACCINE 2021-02-19 00:00:00 Completed [facility] SARS-COV-2 COVID-19 PFIZER VACCINE 2021-02-19 00:00:00 Completed [facility] SARS-COV-2 COVID-19 PFIZER VACCINE 2021-02-19 00:00:00 Completed [facility] SARS-COV-2 COVID-19 PFIZER VACCINE 2021-02-19 00:00:00 Completed [facility] SARS-COV-2 COVID-19 PFIZER VACCINE 2021-02-19 00:00:00 Completed [facility] SARS-COV-2 COVID-19 PFIZER VACCINE 2021-02-19 00:00:00 Completed [facility] SARS-COV-2 COVID-19 PFIZER VACCINE 2021-02-19 00:00:00 Completed [facility] SARS-COV-2 COVID-19 PFIZER VACCINE 2021-02-19 00:00:00 Completed [facility] SARS-COV-2 COVID-19 PFIZER VACCINE 2021-02-19 00:00:00 Completed [facility] SARS-COV-2 COVID-19 PFIZER VACCINE 2021-02-19 00:00:00 Completed [facility] SARS-COV-2 COVID-19 PFIZER VACCINE 2021-02-19 00:00:00 Completed [facility] SARS-COV-2 COVID-19 PFIZER VACCINE 2021-02-19 00:00:00 Completed [facility] SARS-COV-2 COVID-19 PFIZER VACCINE 2021-01-29 00:00:00 Completed [facility] SARS-COV-2 COVID-19 PFIZER VACCINE 2021-01-29 00:00:00 Completed [facility] SARS-COV-2 COVID-19 PFIZER VACCINE 2021-01-29 00:00:00 Completed [facility] SARS-COV-2 COVID-19 PFIZER VACCINE 2021-01-29 00:00:00 Completed [facility] SARS-COV-2 COVID-19 PFIZER VACCINE 2021-01-29 00:00:00 Completed [facility] SARS-COV-2 COVID-19 PFIZER VACCINE 2021-01-29 00:00:00 Completed [facility] SARS-COV-2 COVID-19 PFIZER VACCINE 2021-01-29 00:00:00 Completed [facility] SARS-COV-2 COVID-19 PFIZER VACCINE 2021-01-29 00:00:00 Completed [facility] SARS-COV-2 COVID-19 PFIZER VACCINE 2021-01-29 00:00:00 Completed [facility] SARS-COV-2 COVID-19 PFIZER VACCINE 2021-01-29 00:00:00 Completed [facility] SARS-COV-2 COVID-19 PFIZER VACCINE 2021-01-29 00:00:00 Completed [facility] SARS-COV-2 COVID-19 PFIZER VACCINE 2021-01-29 00:00:00 Completed [facility] SARS-COV-2 COVID-19 PFIZER VACCINE 2021-01-29 00:00:00 Completed [facility] SARS-COV-2 COVID-19 PFIZER VACCINE 2021-01-29 00:00:00 Completed [facility] SARS-COV-2 COVID-19 PFIZER VACCINE 2021-01-29 00:00:00 Completed [facility] SARS-COV-2 COVID-19 PFIZER VACCINE 2021-01-29 00:00:00 Completed [facility] SARS-COV-2 COVID-19 PFIZER VACCINE 2021-01-29 00:00:00 Completed [facility] SARS-COV-2 COVID-19 PFIZER VACCINE 2021-01-29 00:00:00 Completed [facility] SARS-COV-2 COVID-19 PFIZER VACCINE 2021-01-29 00:00:00 Completed [facility] SARS-COV-2 COVID-19 PFIZER VACCINE 2021-01-29 00:00:00 Completed [facility] SARS-COV-2 COVID-19 PFIZER VACCINE 2021-01-29 00:00:00 Completed [facility] SARS-COV-2 COVID-19 PFIZER VACCINE 2021-01-29 00:00:00 Completed [facility] [facility]OV[facility]2 COVID-19 PFIZER VACCINE 2021-01-29 00:00:00 Completed [facility] SARS-COV-2 COVID-19 PFIZER VACCINE 2021-01-29 00:00:00 Completed [facility] SARS-COV-2 COVID-19 PFIZER VACCINE 2021-01-29 00:00:00 Completed [facility] SARS-COV-2 COVID-19 PFIZER VACCINE 2021-01-29 00:00:00 Completed [facility] SARS-COV-2 COVID-19 PFIZER VACCINE 2021-01-29 00:00:00 Completed [facility] SARS-COV-2 COVID-19 PFIZER VACCINE 2021-01-29 00:00:00 Completed [facility] SARS-COV-2 COVID-19 PFIZER VACCINE 2021-01-29 00:00:00 Completed [facility] SARS-COV-2 COVID-19 PFIZER VACCINE 2021-01-29 00:00:00 Completed [facility] SARS-COV-2 COVID-19 PFIZER VACCINE 2021-01-29 00:00:00 Completed [facility] SARS-COV-2 COVID-19 PFIZER VACCINE 2021-01-29 00:00:00 Completed [facility] Vital Signs Vital Name Observation Time Observation Value Comments S ource Systolic blood pressure 2024-07-14 19:49:00 108 mm[Hg] Michelle Herron ld - External Diastolic blood pressure 2024-07-14 19:49:00 72 mm[Hg] Michelle Herron ld - External Heart rate 2024-07-14 19:49:00 87 /min Pearl Rojo - External Body temperature 2024-07-14 19:49:00 36.78 Steph Michelle Rojo - External Respiratory rate 2024-07-14 19:49:00 15 /min Michelle Rojo - External Body height 2024-07-14 19:49:00 167.6 cm Meg Rojo - External Body weight 2024-07-14 19:49:00 92.08 kg Meg gonzalez Seybold - External BMI 2024-07-14 19:49:00 32.77 kg/m2 Meg gonzalez Seybold - External Oxygen saturation in Arterial blood by Pulse oximetry 2024-07-14 19:49:00 97 /min Michelle Herron ld - External Systolic blood pressure 2024-06-30 19:39:00 122 mm[Hg] Michelle Roao ld - External Diastolic blood pressure 2024-06-30 19:39:00 80 mm[Hg] Michelle Roao ld - External Heart rate 2024-06-30 19:39:00 95 /min Pearl jane Seybold - External Body temperature 2024-06-30 19:39:00 37.11 Steph Michelle Craneybold - External Respiratory rate 2024-06-30 19:39:00 16 /min Michelle Roaold - External Body height 2024-06-30 19:39:00 167.6 cm Meg gonzalez Seybold - External Body weight 2024-06-30 19:39:00 91.627 kg Meg gonzalez Seybold - External BMI 2024-06-30 19:39:00 32.60 kg/m2 Meg gonzalez Seybold - External Oxygen saturation in Arterial blood by Pulse oximetry 2024-06-30 19:39:00 96 /min Michelle Herron ld - External Systolic blood pressure 2024-03-24 04:38:00 147 mm[Hg] [facility] Diastolic blood pressure 2024-03-24 04:38:00 99 mm[Hg] [facility] Heart rate 2024-03-24 04:38:00 95 /[facility] Body temperature 2024-03-24 04:38:00 36.89 Steph [facility] Respiratory rate 2024-03-24 04:38:00 18 /min [facility] Body height 2024-03-24 04:38:00 170.2 cm [facility] Body weight 2024-03-24 04:38:00 92.08 kg [facility] BMI 2024-03-24 04:38:00 31.79 kg/m2 [facility] Oxygen saturation in Arterial blood by Pulse oximetry 2024-03-24 04:38:00 95 /min [facility] Systolic blood pressure 2024-03-16 22:59:00 148 mm[Hg] [facility] Diastolic blood pressure 2024-03-16 22:59:00 99 mm[Hg] [facility] Heart rate 2024-03-16 22:59:00 84 /min [facility] Body temperature 2024-03-16 22:59:00 36.39 Steph [facility] Respiratory rate 2024-03-16 22:59:00 18 /min [facility] Body weight 2024-03-16 22:59:00 91.128 kg [facility] BMI 2024-03-16 22:59:00 33.43 kg/m2 [facility] Oxygen saturation in Arterial blood by Pulse oximetry 2024-03-16 22:59:00 98 /min [facility] Systolic blood pressure 2024-01-18 01:49:00 152 mm[Hg] [facility] Diastolic blood pressure 2024-01-18 01:49:00 108 mm[Hg] [facility] Heart rate 2024-01-18 01:49:00 91 /min [facility] Body temperature 2024-01-18 01:49:00 37 Steph [facility] Respiratory rate 2024-01-18 01:49:00 18 /min [facility] Body height 2024-01-18 01:49:00 165.1 cm [facility] Body weight 2024-01-18 01:49:00 90.719 kg [facility] BMI 2024-01-18 01:49:00 33.28 kg/m2 [facility] Oxygen saturation in Arterial blood by Pulse oximetry 2024-01-18 01:49:00 97 /min [facility] Systolic blood pressure 2024-01-10 16:57:00 135 mm[Hg] [facility] Diastolic blood pressure 2024-01-10 16:57:00 94 mm[Hg] [facility] Heart rate 2024-01-10 16:56:00 90 /min [facility] Body temperature 2024-01-10 16:56:00 37.22 Steph [facility] Respiratory rate 2024-01-10 16:56:00 17 /min [facility] Body weight 2024-01-10 16:56:00 90.266 kg [facility] BMI 2024-01-10 16:56:00 33.12 kg/m2 [facility] Oxygen saturation in Arterial blood by Pulse oximetry 2024-01-10 16:56:00 95 /min [facility] BMI 2023-12-09 12:06:00 33.78 kg/m2 [facility] Oxygen saturation in Arterial blood by Pulse oximetry 2023-12-09 12:06:00 96 /min [facility] Systolic blood pressure 2023-12-09 12:06:00 122 mm[Hg] [facility] Diastolic blood pressure 2023-12-09 12:06:00 94 mm[Hg] [facility] Heart rate 2023-12-09 12:06:00 86 /min [facility] Body temperature 2023-12-09 12:06:00 37 Steph [facility] Respiratory rate 2023-12-09 12:06:00 14 /min [facility] Body height 2023-12-09 12:06:00 165.1 cm [facility] Body weight 2023-12-09 12:06:00 92.08 kg [facility] Systolic blood pressure 2023-12-05 03:59:00 123 mm[Hg] [facility] Diastolic blood pressure 2023-12-05 03:59:00 86 mm[Hg] [facility] Heart rate 2023-12-05 03:59:00 97 /min [facility] Body temperature 2023-12-05 03:59:00 36.72 Steph [facility] Respiratory rate 2023-12-05 03:59:00 17 /min [facility] Body height 2023-12-05 03:59:00 165.1 cm [facility] Body weight 2023-12-05 03:59:00 94.983 kg [facility] BMI 2023-12-05 03:59:00 34.85 kg/m2 [facility] Oxygen saturation in Arterial blood by Pulse oximetry 2023-12-05 03:59:00 97 /min [facility] Systolic blood pressure 2023-11-30 22:23:00 123 mm[Hg] [facility] Diastolic blood pressure 2023-11-30 22:23:00 83 mm[Hg] [facility] Heart rate 2023-11-30 22:23:00 96 /min [facility] Body temperature 2023-11-30 22:23:00 36.94 Steph [facility] Respiratory rate 2023-11-30 22:23:00 16 /min [facility] Body height 2023-11-30 22:23:00 162.6 cm [facility] Body weight 2023-11-30 22:23:00 92.352 kg [facility] BMI 2023-11-30 22:23:00 34.95 kg/m2 [facility] Oxygen saturation in Arterial blood by Pulse oximetry 2023-11-30 22:23:00 99 /min [facility] Systolic blood pressure 2023-11-10 16:19:00 125 mm[Hg] [facility] Diastolic blood pressure 2023-11-10 16:19:00 85 mm[Hg] [facility] Heart rate 2023-11-10 16:19:00 79 /min [facility] Body temperature 2023-11-10 16:19:00 36.72 Steph [facility] Respiratory rate 2023-11-10 16:19:00 16 /min [facility] Body weight 2023-11-10 16:19:00 93.895 kg [facility] BMI 2023-11-10 16:19:00 34.45 kg/m2 [facility] Oxygen saturation in Arterial blood by Pulse oximetry 2023-11-10 16:19:00 95 /min [facility] Systolic blood pressure 2023-06-12 19:36:00 136 mm[Hg] [facility] Diastolic blood pressure 2023-06-12 19:36:00 81 mm[Hg] [facility] Heart rate 2023-06-12 19:36:00 107 /min [facility] Body temperature 2023-06-12 19:36:00 36.78 Steph [facility] Respiratory rate 2023-06-12 19:36:00 18 /min [facility] Body height 2023-06-12 19:36:00 165.1 cm [facility] Body weight 2023-06-12 19:36:00 92.08 kg [facility] BMI 2023-06-12 19:36:00 33.78 kg/m2 [facility] Oxygen saturation in Arterial blood by Pulse oximetry 2023-06-12 19:36:00 96 /min [facility] Systolic blood pressure 2023-01-10 20:44:00 129 mm[Hg] [facility] Diastolic blood pressure 2023-01-10 20:44:00 78 mm[Hg] [facility] Heart rate 2023-01-10 20:44:00 108 /min [facility] Body temperature 2023-01-10 20:44:00 37.06 Steph [facility] Respiratory rate 2023-01-10 20:44:00 17 /min [facility] Body weight 2023-01-10 20:44:00 83.008 kg [facility] BMI 2023-01-10 20:44:00 30.45 kg/m2 [facility] Oxygen saturation in Arterial blood by Pulse oximetry 2023-01-10 20:44:00 97 /min [facility] Systolic blood pressure 2022-10-29 18:47:00 123 mm[Hg] [facility] Diastolic blood pressure 2022-10-29 18:47:00 82 mm[Hg] [facility] Heart rate 2022-10-29 18:47:00 82 /min [facility] Body temperature 2022-10-29 18:47:00 35.56 Steph [facility] Respiratory rate 2022-10-29 18:47:00 16 /min [facility] Body height 2022-10-29 18:47:00 165.1 cm [facility] Body weight 2022-10-29 18:47:00 83.462 kg [facility] BMI 2022-10-29 18:47:00 30.62 kg/m2 [facility] Oxygen saturation in Arterial blood by Pulse oximetry 2022-10-29 18:47:00 95 /min [facility] Systolic blood pressure 2022-10-19 14:20:00 133 mm[Hg] [facility] Diastolic blood pressure 2022-10-19 14:20:00 83 mm[Hg] [facility] Heart rate 2022-10-19 14:20:00 90 /min [facility] Body temperature 2022-10-19 14:20:00 36.89 Steph [facility] Respiratory rate 2022-10-19 14:20:00 20 /min [facility] Body height 2022-10-19 14:20:00 165.1 cm [facility] Body weight 2022-10-19 14:20:00 84.324 kg [facility] BMI 2022-10-19 14:20:00 30.94 kg/m2 [facility] Oxygen saturation in Arterial blood by Pulse oximetry 2022-10-19 14:20:00 95 /min [facility] Systolic blood pressure 2022-10-05 01:42:00 117 mm[Hg] [facility] Diastolic blood pressure 2022-10-05 01:42:00 80 mm[Hg] [facility] Heart rate 2022-10-05 01:42:00 100 /min [facility] Body temperature 2022-10-05 01:42:00 37.22 Steph [facility] Respiratory rate 2022-10-05 01:42:00 18 /min [facility] Body weight 2022-10-05 01:42:00 84.142 kg [facility] BMI 2022-10-05 01:42:00 30.87 kg/m2 [facility] Oxygen saturation in Arterial blood by Pulse oximetry 2022-10-05 01:42:00 98 /min [facility] Systolic blood pressure 2022-09-04 15:21:00 124 mm[Hg] [facility] Diastolic blood pressure 2022-09-04 15:21:00 80 mm[Hg] [facility] Heart rate 2022-09-04 15:21:00 79 /min [facility] Body temperature 2022-09-04 15:21:00 36.67 Steph [facility] Body height 2022-09-04 15:21:00 165.1 cm [facility] Body weight 2022-09-04 15:21:00 86.138 kg [facility] BMI 2022-09-04 15:21:00 31.60 kg/m2 [facility] Oxygen saturation in Arterial blood by Pulse oximetry 2022-09-04 15:21:00 97 /min [facility] Systolic blood pressure 2022-08-07 17:54:00 142 mm[Hg] [facility] Diastolic blood pressure 2022-08-07 17:54:00 98 mm[Hg] [facility] Heart rate 2022-08-07 17:53:00 105 /min [facility] Body height 2022-08-07 17:53:00 165.1 cm [facility] Body weight 2022-08-07 17:53:00 85.322 kg [facility] BMI 2022-08-07 17:53:00 31.30 kg/m2 [facility] Oxygen saturation in Arterial blood by Pulse oximetry 2022-08-07 17:53:00 94 /min [facility] Systolic blood pressure 2022-05-15 02:49:00 123 mm[Hg] [facility] Diastolic blood pressure 2022-05-15 02:49:00 82 mm[Hg] [facility] Heart rate 2022-05-15 02:49:00 85 /min [facility] Body temperature 2022-05-15 02:49:00 36.72 Steph [facility] Respiratory rate 2022-05-15 02:49:00 16 /min [facility] Body height 2022-05-15 02:49:00 165.1 cm [facility] Body weight 2022-05-15 02:49:00 82.101 kg [facility] BMI 2022-05-15 02:49:00 30.12 kg/m2 [facility] Oxygen saturation in Arterial blood by Pulse oximetry 2022-05-15 02:49:00 97 /min [facility] Systolic blood pressure 2021-11-25 18:30:00 106 mm[Hg] [facility] Diastolic blood pressure 2021-11-25 18:30:00 78 mm[Hg] [facility] Heart rate 2021-11-25 18:30:00 96 /min [facility] Body temperature 2021-11-25 18:30:00 36.72 Steph [facility] Respiratory rate 2021-11-25 18:30:00 18 /min [facility] Body height 2021-11-25 18:30:00 165.1 cm [facility] Body weight 2021-11-25 18:30:00 77.565 kg [facility] BMI 2021-11-25 18:30:00 28.46 kg/m2 [facility] Oxygen saturation in Arterial blood by Pulse oximetry 2021-11-25 18:30:00 100 /min [facility] Systolic blood pressure 2021-11-25 17:33:00 141 mm[Hg] [facility] Diastolic blood pressure 2021-11-25 17:33:00 83 mm[Hg] [facility] Heart rate 2021-11-25 17:33:00 77 /min [facility] Body temperature 2021-11-25 17:33:00 36.44 Steph [facility] Respiratory rate 2021-11-25 17:33:00 16 /min [facility] Body height 2021-11-25 17:33:00 162.6 cm [facility] Body weight 2021-11-25 17:33:00 78.926 kg [facility] BMI 2021-11-25 17:33:00 29.87 kg/m2 [facility] Oxygen saturation in Arterial blood by Pulse oximetry 2021-11-25 17:33:00 95 /min [facility] Systolic blood pressure 2021-11-07 18:49:00 128 mm[Hg] [facility] Diastolic blood pressure 2021-11-07 18:49:00 82 mm[Hg] [facility] Heart rate 2021-11-07 18:49:00 71 /min [facility] Body height 2021-11-07 18:49:00 167.6 cm [facility] Body weight 2021-11-07 18:49:00 78.472 kg [facility] BMI 2021-11-07 18:49:00 27.92 kg/m2 [facility] Oxygen saturation in Arterial blood by Pulse oximetry 2021-11-07 18:49:00 97 /min [facility] BP Systolic 2024-05-17 14:29:00 152 mm[Hg] Step hen F Syed BP Diastolic 2024-05-17 14:29:00 112 mm[Hg] Dwight phen F Syed Weight Measured 2024-05-17 14:29:00 202.60 pounds Angel F Syed Height Measured 2024-05-17 14:29:00 65.00 inches Angeljesse Lynch Body Temperature 2024-05-17 14:29:00 98.10 degrees Angel F Syed Heart Rate 2024-05-17 14:29:00 85.00 /min Viviana en F Syed Respiratory Rate 2024-05-17 14:29:00 18.00 /min Angel F Syed BP Systolic 2024-02-18 17:22:00 135 mm[Hg] Step hen F Syed BP Diastolic 2024-02-18 17:22:00 83 mm[Hg] Dwight phen F Syed Weight Measured 2024-02-18 17:22:00 201.00 pounds Angel F Syed Height Measured 2024-02-18 17:22:00 65.00 inches Angel F Syed Body Temperature 2024-02-18 17:22:00 98.50 degrees Angel F Syed Heart Rate 2024-02-18 17:22:00 93.00 /min Viviana en F Syed Respiratory Rate 2024-02-18 17:22:00 18.00 /min Angel F Syed BP Systolic 2024-01-05 17:40:00 136 mm[Hg] Step hen F Syed BP Diastolic 2024-01-05 17:40:00 84 mm[Hg] Dwight phen F Syed Weight Measured 2024-01-05 17:40:00 198.80 pounds Angel F Syed Height Measured 2024-01-05 17:40:00 65.00 inches Angel F Syed Body Temperature 2024-01-05 17:40:00 98.30 degrees Angel F Syed Heart Rate 2024-01-05 17:40:00 93.00 /min Viviana en F Syed Respiratory Rate 2024-01-05 17:40:00 Angel F Syed BP Systolic 2023-12-17 14:04:00 111 mm[Hg] Step hen F Syed BP Diastolic 2023-12-17 14:04:00 65 mm[Hg] Dwight phen F Syed Weight Measured 2023-12-17 14:04:00 203.20 pounds Angel F Syed Height Measured 2023-12-17 14:04:00 65.00 inches Angel F Syed Body Temperature 2023-12-17 14:04:00 98.20 degrees Angel F Syed Heart Rate 2023-12-17 14:04:00 80.00 /min Viviana en F Syed Respiratory Rate 2023-12-17 14:04:00 Angel F Syed BP Systolic 2023-12-14 15:43:00 122 mm[Hg] Step hen F Syed BP Diastolic 2023-12-14 15:43:00 98 mm[Hg] Dwight phen F Syed Weight Measured 2023-12-14 15:43:00 205.60 pounds Angel F Syed Height Measured 2023-12-14 15:43:00 65.00 inches Angel F Syed Body Temperature 2023-12-14 15:43:00 98.10 degrees Angel F Syed Heart Rate 2023-12-14 15:43:00 85.00 /min Viviana en F Syed Respiratory Rate 2023-12-14 15:43:00 16.00 /min Angel F Syed BP Systolic 2023-12-09 16:23:00 120 mm[Hg] Step hen F Syed BP Diastolic 2023-12-09 16:23:00 102 mm[Hg] Dwight phen F Syed Weight Measured 2023-12-09 16:23:00 Angeljesse Lynch Height Measured 2023-12-09 16:23:00 65.00 inches Angel Lynch Body Temperature 2023-12-09 16:23:00 98.20 degrees Angeljesse Lynch Heart Rate 2023-12-09 16:23:00 90.00 /min Viviana en F Syed Respiratory Rate 2023-12-09 16:23:00 18.00 /min Angeljesse Lynch Weight Measured 2023-12-02 15:55:00 204.60 pounds Angel Lynch Height Measured 2023-12-02 15:55:00 65.00 inches Angel Lynch Body Temperature 2023-12-02 15:55:00 Angel Merari Lynch Heart Rate 2023-12-02 15:55:00 82.00 /min Viviana en F Syed Respiratory Rate 2023-12-02 15:55:00 Angeljesse Lynch BP Systolic 2023-12-02 15:55:00 129 mm[Hg] Step hen F Syed BP Diastolic 2023-12-02 15:55:00 90 mm[Hg] Dwight phen F Syed BP Systolic 2023-11-26 13:58:00 138 mm[Hg] Step hen F Syed BP Diastolic 2023-11-26 13:58:00 88 mm[Hg] Dwight phen F Syed Weight Measured 2023-11-26 13:58:00 204.20 pounds Angel Lynch Height Measured 2023-11-26 13:58:00 65.00 inches Angel Lynch Body Temperature 2023-11-26 13:58:00 98.10 degrees Angel Lynch Heart Rate 2023-11-26 13:58:00 100.00 /min Step hen F Syed Respiratory Rate 2023-11-26 13:58:00 Angel Lynch Procedures Procedure Date / Time Performed Performing Clinician Source [id number] Removal Impacted Cerumen Using Irrigation/lavage, Unilateral 2023-12-14 00:00:00 Angel Lynch POCT SARS-COV-2 ANTIGEN (BINAX NOW) 2023-06-12 19:36:00 Alex Mejia [facility] AUTHORIZATION FOR RELEASE OF PHI 2023-06-03 06:01:00 Doctor Unassigned, [place] POCT SARS-COV-2 ANTIGEN (BINAX NOW) 2022-10-05 01:45:00 Yuridia Coles [facility] US ABDOMEN LIMITED 2022-09-12 15:27:58 Elizabet Trammell [facility] ASSIGNMENT OF BENEFITS 2022-09-04 14:51:29 Docto r Unassigned, [place] [facility] NOTICE OF PRIVACY PRACTICES 2021-11-25 17:58:19 Doctor Unassigned, [place] [facility] CONSENT/REFUSAL FOR DIAGNOSIS AND TREATMENT 2021-11-25 17:58:03 Doctor Unassigned, [place] [facility] AUTHORIZATION FOR RELEASE OF PHI 2021-11-07 05:01:00 Doctor Unassigned, [place] [facility] Encounters Start Date/Time End Date/Time Encounter Type Admission Type Attending [facility] Care Department Encounter ID Source 2024-09-16 00:00:00 2024-09-16 00:00:00 Outpatient ROSALBA BARFIELD [id number] Michelle [facility] 2024-09-14 13:30:00 2024-09-14 13:30:00 Outpatient ROSALBA BARFIELD [id number] [facility] 2024-08-12 10:30:00 2024-08-12 10:30:00 Outpatient ROSALBA BARFIELD [id number] [facility] 2024-08-03 10:00:00 2024-08-03 10:00:00 Outpatient ROSALBA BARFIELD [id number] Michelle [facility] 2024-07-14 14:00:00 2024-07-14 14:00:00 Outpatient ROSALBA BARFIELD [id number] Michelle [facility] 2024-06-30 13:30:00 2024-06-30 13:30:00 Outpatient RUTHERFORD, MASON WHATLEY [id number] Michelle [facility] 2024-06-30 10:00:00 2024-06-30 10:00:00 Outpatient LINA CHOWDHURY [id number] Michelle Rojo 2024-05-17 14:23:21 2024-05-17 14:23:[address] [facility] [id number] Angel Lynch 2024-05-17 11:00:00 2024-05-17 11:00:00 Outpatient SOLA COLES [id number] [facility] 2024-05-17 00:00:00 2024-05-17 00:00:[address] [facility] [id number] Angel Lynch 2024-03-23 23:42:00 2024-03-23 23:48:00 Emergency X SWEETIE EAGLE TIMOTHY [facility] [id number] [facility] 2024-03-23 23:42:00 2024-03-23 23:48:00 Emergency Sweetie Eagle [facility] [id number] [facility] 2024-03-16 18:03:00 2024-03-16 18:39:00 Emergency X MURRAY MOORE [facility] E[facility] [id number] [facility] 2024-03-16 18:03:00 2024-03-16 18:39:00 Emergency Murray Moore [facility] .[id number] [facility] 2024-02-18 17:19:11 2024-02-18 17:19:[address] [facility] [id number] Angel Lynch 2024-02-18 00:00:00 2024-02-18 00:00:[address] [facility] [id number] Angel Lynch 2024-01-26 17:53:49 2024-01-26 17:53:[address] [facility] [id number] Angel Lynch 2024-01-19 10:13:08 2024-01-19 10:13:[address] [facility] [id number] Angel Lynch 2024-01-17 20:52:00 2024-01-17 21:30:00 Emergency X CLAUDIA BOOTH [facility] E[facility] [id number] [facility] 2024-01-17 20:52:00 2024-01-17 21:30:00 Emergency Claudia Booth [facility] [id number] [facility] 2024-01-17 00:00:00 2024-01-17 14:27:25 Refill Flor Erazo [facility] [id number] [id number] [facility] 2024-01-10 11:40:00 2024-01-10 12:00:00 Urgent Care Flor Erazo, Attending [facility] [id number] [id number] [facility] 2024-01-10 11:40:00 2024-01-10 11:40:00 Outpatient R FLOR ERAZO [facility] [id number] [facility] 2024-01-05 17:44:39 2024-01-05 17:44:[address] [facility] [id number] Angel Lynch 2023-12-22 19:17:33 2023-12-22 19:17:[address] [facility] [id number] Angel Lynch 2023-12-22 00:00:00 2023-12-22 00:00:00 Outpatient Visit [facility] [id number] Angel Lynch 2023-12-17 14:00:29 2023-12-17 14:00:[address] [facility] [id number] Angel Lynch 2023-12-17 00:00:00 2023-12-17 00:00:00 Outpatient Visit [facility] [id number] Angel Lynch 2023-12-16 00:00:00 2023-12-16 07:08:08 Evan Matthews [facility] [id number] [id number] [id number] [id number] [facility] 2023-12-14 15:22:06 2023-12-14 15:22:[address] [facility] [id number] Angel Lynch 2023-12-14 00:00:00 2023-12-14 00:00:00 Outpatient Visit [facility] [id number] Angel Lnych 2023-12-09 16:13:50 2023-12-09 16:13:[address] [facility] [id number] Angel Lynch 2023-12-09 07:08:00 2023-12-09 07:39:00 Emergency X MAYURI EPPERSON [facility] ERT [id number] [facility] 2023-12-09 07:08:00 2023-12-09 07:39:00 Emergency Mayuri Epperson [facility] .840.114 350.1.13.10 4.2.7.2.686 [id number] [facility] 2023-12-09 00:00:00 2023-12-09 00:00:00 Outpatient Visit SFA [id number] Angel Lynch 2023-12-04 23:03:00 2023-12-05 00:00:00 Emergency X AYALA CORADO [facility] ERT [id number] [facility] 2023-12-04 23:03:00 2023-12-05 00:00:00 Emergency Ayala Corado [facility] 1.2.840.114 350.1.13.10 4.2.7.2.686 [id number] [facility] 2023-12-02 15:51:26 2023-12-02 15:51:[address] [facility] [id number] Angel Lynch 2023-12-02 00:00:00 2023-12-02 00:00:[address] [facility] [id number] Angel Lynch 2023-11-30 17:00:00 2023-11-30 17:20:00 Urgent Care Alex Mejia Unknown, Attending [facility] MEDICAL OFFICE BUILDING 1.2.840.114 350.1.13.10 4.2.7.2.686 [id number] [facility] 2023-11-30 17:00:00 2023-11-30 17:00:00 Outpatient R ALEX MEJIA [facility] [id number] [facility] 2023-11-26 13:51:51 2023-11-26 13:51:[address] [facility] [id number] Angel Lynch 2023-11-26 00:00:00 2023-11-26 00:00:00 Outpatient Visit SFA [id number] Angel Lynch 2023-11-10 11:00:00 2023-11-10 11:34:56 Outpatient CARYN HULL [facility] [id number] [facility] 2023-11-10 11:00:00 2023-11-10 11:34:56 Urgent Care Caryn Harden Unknown, Attending [facility] MEDICAL OFFICE BUILDING 1.2.840.114 350.1.13.10 4.2.7.2.686 [id number] [facility] 2023-09-02 00:00:00 2023-09-02 00:00:00 Evan ChandabuckErinn [facility] MEDICAL OFFICE BUILDING 1.2.840.114 350.1.13.10 4.2.7.2.686 [id number] [facility] 2023-06-12 13:20:00 2023-06-12 14:04:37 Outpatient ALEX SHARP [facility] [id number] [facility] 2023-06-12 13:20:00 2023-06-12 14:04:37 Urgent Care Alex Mejia Unknown, Attending [facility] MEDICAL OFFICE BUILDING 1..840.114 350.1.13.10 4.2.7.2.686 [id number] [facility] 2023-06-03 00:00:00 2023-06-03 00:00:00 Orders Only Doctor Unassigned, Nuevo [facility] 1.840.114 350.1.13.10 4.2.7.2.686 [id number] [facility] 2023-04-06 16:32:00 2023-04-06 16:32:00 Outpatient [facility] [id number] Angel Lynch 2023-01-28 13:30:00 2023-01-28 13:30:00 Outpatient JAYLN CARVER [facility] [id number] [facility] 2023-01-10 15:40:00 2023-01-10 16:01:39 Outpatient ALEX SHARP [facility] [id number] [facility] 2023-01-10 15:40:00 2023-01-10 16:01:39 Urgent Care Breana Mejiasebasxander Unknown, Attending [facility] 1.114 350.1.13.10 4.2.7.2.686 [id number] 370 [id number] [facility] 2022-10-29 15:15:00 2022-10-29 15:30:00 Photographer'S Model Visit [facility] Jeff [facility] 1.114 350.1.13.10 4.2.7.2.686 [id number] [facility] 2022-10-29 14:30:00 2022-10-29 14:30:00 Office Visit Jeff [facility] 1.114 350.1.13.10 4.2.7.2.686 [id number] [facility] 2022-10-29 14:30:00 2022-10-29 14:13:25 Outpatient R JALYN ONEILL [facility] [id number] [facility] 2022-10-19 09:20:00 2022-10-19 09:40:00 Urgent Care Ángel Mclaughlin Unknown, Attending [facility] MEDICAL OFFICE BUILDING 1.114 350.1.13.10 4.2.7.2.686 [id number] [facility] 2022-10-19 09:20:00 2022-10-19 09:20:00 Outpatient R ÁNGEL MCLAUGHLIN [facility] [id number] [facility] 2022-10-11 00:00:00 2022-10-11 00:00:00 Patient Secure Msg Doctor Unassigned, Nuevo [facility] 1.114 350.1.13.10 4.2.7.2.686 [id number] [facility] 2022-10-06 00:00:00 2022-10-06 00:00:00 Patient Secure Msg [facility] MEDICAL OFFICE BUILDING 1.2840.114 350.1.13.10 4.2.7.2.686 [id number] [facility] 2022-10-04 20:40:00 2022-10-04 20:49:13 Outpatient R ALEX MEJIA [facility] [id number] [facility] 2022-10-04 20:40:00 2022-10-04 20:49:13 Urgent Care Alex Mejia Unknown, Attending [facility] 1.0.114 350.1.13.10 4.2.7.2.686 [id number] [facility] 2022-09-26 00:00:00 2022-09-26 00:00:00 Telephone Elizabet Trammell [facility] MEDICAL OFFICE BUILDING 1.20.114 350.1.13.10 4.2.7.2.686 [id number] [facility] 2022-09-20 00:00:00 2022-09-20 00:00:00 Patient Secure Msg Doctor Unassigned, Nuevo [facility] 1.20.114 350.1.13.10 4.2.7.2.686 [id number] [facility] 2022-09-18 00:00:00 2022-09-18 00:00:00 Telephone Elizabet Trammell [facility] MEDICAL OFFICE BUILDING 1.2840.114 350.1.13.10 4.2.7.2.686 [id number] [facility] 2022-09-16 00:00:00 2022-09-16 00:00:00 Patient Secure Msg Jp Elizabet Dena [facility] 1.2.840.114 350.1.13.10 4.2.7.2.686 [id number] [facility] 2022-09-12 09:56:01 2022-09-12 23:59:00 Outpatient R ELIZABET TRAMMELL [facility] [id number] [facility] 2022-09-12 09:45:00 2022-09-12 23:59:00 Hospital Encounter Elizabet Trammell [facility] 1..840.114 350.1.13.10 4.2.7.2.686 [id number] [facility] 2022-09-08 00:00:00 2022-09-08 00:00:00 Telephone Elizabet Trammell [facility] MEDICAL OFFICE BUILDING 1..840.114 350.1.13.10 4.2.7.2.686 [id number] [facility] 2022-09-08 00:00:00 2022-09-08 00:00:[address] [facility] MEDICAL OFFICE BUILDING 1..840.114 350.1.13.10 4.2.7.2.686 [id number] [facility] 2022-09-05 12:30:00 2022-09-05 12:45:00 Photographer'S Model Visit Lab, [facility] MEDICAL OFFICE BUILDING 1.2.840.114 350.1.13.10 4.2.7.2.686 [id number] [facility] 2022-09-05 12:29:53 2022-09-05 12:30:00 Outpatient R ELIZABET TRAMMELL [facility] [id number] [facility] 2022-09-04 10:30:00 2022-09-04 11:14:23 Outpatient R ELIZABET TRAMMELL [facility] [id number] [facility] 2022-09-04 10:30:00 2022-09-04 11:14:23 Office Visit [facility]amm[facility] MED[facility] OFFICE BUILDING 1.2.840.114 350.1.13.10 4.2.7.2.686 [id number] [facility] 2022-09-04 00:00:00 2022-09-04 00:00:00 Orders Only Doctor Unassigned, Nuevo [facility] 1..840.114 350.1.13.10 4.2.7.2.686 [id number] [facility] 2022-08-07 12:45:00 2022-08-07 13:00:00 Photographer'S Model Visit Lab, Ang - Harman Matthews [facility] MEDICAL OFFICE BUILDING 1..840.114 350.1.13.10 4.2.7.2.686 [id number] [facility] 2022-08-07 12:45:00 2022-08-07 12:28:59 Outpatient R [facility] [id number] [facility] 2022-08-07 11:40:00 2022-08-07 12:11:[address] [facility] MEDICAL OFFICE BUILDING 1.2.840.114 350.1.13.10 4.2.7.2.686 [id number] [facility] 2022-08-07 00:00:00 2022-08-07 00:00:[address] [facility] MEDICAL OFFICE BUILDING 1.840.114 350.1.13.10 4.2.7.2.686 [id number] [facility] 2022-08-06 00:00:00 2022-08-06 00:00:00 [facility] 1.2840.114 350.1.13.10 4.2.7.2.686 [id number] [facility] 2022-08-06 00:00:00 2022-08-06 00:00:00 Refill Jp, El[facility]et [facility] MEDICAL OFFICE BUILDING 1.284.114 350.1.13.10 4.2.7.2.686 [id number] [facility] 2022-07-14 00:00:00 2022-07-14 00:00:00 Refill Jp, Elizabet [facility] MEDICAL OFFICE BUILDING 1.284114 350.1.13.10 4.2.7.2.686 [id number] [facility] 2022-06-08 00:00:00 2022-06-08 00:00:00 Refill Jp, Elizabet [facility] MEDICAL OFFICE BUILDING 1.2840.114 350.1.13.10 4.2.7.2.686 [id number] [facility] 2022-05-14 20:40:00 2022-05-14 20:56:40 Outpatient R ALEX MEJIA [facility] [id number] [facility] 2022-05-14 20:40:00 2022-05-14 20:56:40 Urgent Care Alex Mejia Unknown, Attending [facility] MEDICAL OFFICE BUILDING 1.2840.114 350.1.13.10 4.2.7.2.686 [id number] [facility] 2022-05-10 00:00:00 2022-05-10 00:00:00 Refill Elizabet Trammell [facility] MEDICAL OFFICE BUILDING 1.2.840.114 350.1.13.10 4.2.7.2.686 [id number] [facility] 2022-01-13 00:00:00 2022-01-13 00:00:00 Refill Elizabet Trammell [facility] OFFICE BUILDING 1.2.840.114 350.1.13.10 4.2.7.2.686 [id number] [facility] 2022-01-02 00:00:00 2022-01-02 00:00:00 Refill Elizabet Trammell [facility] MEDICAL OFFICE BUILDING 1..840.114 350.1.13.10 4.2.7.2.686 [id number] [facility] 2022-01-01 02:27:00 2022-01-01 02:27:00 Outpatient MARY GARCIA [facility] [id number] [place] [facility] 2021-11-25 13:32:00 2021-11-25 14:26:00 Emergency X [facility] ERT [id number] [facility] 2021-11-25 13:32:00 2021-11-25 14:26:00 Emergency [facility] 1..840.114 350.1.13.10 4.2.7.2.686 [id number] [facility] 2021-11-25 12:40:00 2021-11-25 14:16:38 Outpatient CARYN HULL [facility] [id number] [facility] 2021-11-25 12:40:00 2021-11-25 13:00:00 Urgent Care Provider, Danny Hammer Urgent Care Caryn Harden [facility] MEDICAL OFFICE BUILDING 1.2.840.114 350.1.13.10 4.2.7.2.686 [id number] [facility] 2021-11-25 00:00:00 2021-11-25 00:00:00 Orders Only Doctor Unassigned, Nuevo [facility] 1.2.840.114 350.1.13.10 4.2.7.2.686 [id number] [facility] 2021-11-25 00:00:00 2021-11-25 00:00:00 Telephone Provider, [facility] MED[facility] OFF[facility] BUILDING 1.2.840.114 350.1.13.10 4.2.7.2.686 [id number] [facility] 2021-11-15 16:30:00 2021-11-15 16:30:00 Outpatient R ELIZABET TRAMMELL [facility] [id number] [facility] 2021-11-15 16:30:00 2021-11-15 16:30:00 Outpatient ELIZABET MALONEY [facility] [id number] [facility] 2021-11-07 14:00:00 2021-11-07 15:14:32 Office Visit Elizabet Trammell [facility] MEDICAL OFFICE BUILDING 1.2.840.114 350.1.13.10 4.2.7.2.686 [id number] [facility] 2021-11-07 14:00:00 2021-11-07 15:14:32 Outpatient ELIZABET MALONEY [facility] [id number] [facility] 2021-11-07 14:00:00 2021-11-07 14:00:00 Outpatient ELIZABET MALONEY [facility] [id number] [facility] 2021-11-07 00:00:00 2021-11-07 00:00:00 Orders Only Doctor Unassigned, Nuevo [facility] 1.84.114 350.1.13.10 4.2.7.2.686 [id number] [facility] 2021-11-04 00:00:00 2021-11-04 00:00:00 Telephone Elizabet Trammell A [facility] MEDICAL OFFICE BUILDING 1.84.114 350.1.13.10 4.2.7.2.686 [id number] [facility] 2021-10-01 10:20:00 2021-10-01 10:20:00 Outpatient R ROWAN SADLER [facility] [id number] [facility] 2021-09-22 10:00:00 2021-09-22 10:00:00 Urgent Care Isaac Conti Caryn [facility] MEDICAL OFFICE BUILDING 1.840.114 350.1.13.10 4.2.7.2.686 [id number] [facility] 2021-09-22 10:00:00 2021-09-22 09:29:45 Outpatient R CARYN HARDEN [facility] [id number] [facility] 2021-09-05 00:00:00 2021-09-05 00:00:00 Outpatient R ELIZABET TRAMMELL [facility] [id number] [facility] 2021-09-04 00:00:00 2021-09-04 00:00:00 Patient Secure Msg Doctor Unassigned, Nuevo [facility] MEDICAL OFFICE BUILDING 1..840.114 350.1.13.10 4.2.7.2.686 [id number] [facility] 2021-08-28 11:30:00 2021-08-28 13:13:07 Outpatient R ALISSA OWENS [facility] [id number] [facility] 2021-08-22 16:30:00 2021-08-22 17:10:21 Outpatient R JP, ELIZABET [facility] [id number] [facility] 2021-08-22 09:30:00 2021-08-22 09:30:00 Outpatient R JP, ELIZABET [facility] [id number] [facility] 2021-08-19 00:00:00 2021-08-19 00:00:00 Refill Alissa Owens [facility] OFFICE BUILDING ONE 1.2.840.114 350.1.13.10 4.2.7.2.686 [id number] [facility] 2021-02-19 12:56:08 2021-02-19 12:56:17 Imm/Inj Visit Nurse, Destiny Pofranki ImmunizatiNorris Rojas [facility] Building 1.2.840.114 350.1.13.10 4.2.7.2.686 [id number] [facility] 2021-02-19 12:10:00 2021-02-19 12:10:00 Outpatient NORRIS THOMAS [facility] [id number] [facility] 2021-02-05 00:00:00 2021-02-05 00:00:00 Alissa French [facility] Office [facility] One .2.840.114 350.1.13.10 4.2.7.2.686 [id number] [facility] 2021-01-29 13:00:00 2021-01-29 13:00:00 Outpatient [facility] [id number] [facility] 2020-10-19 00:00:00 2020-10-19 00:00:00 Telephone Alissa Owens [facility] Office Building One 1.2.840.114 350.1.13.10 4.2.7.2.686 [id number] [facility] 2020-09-10 00:00:00 2020-09-10 00:00:00 Patient Outreach Norris Almeida [facility] 1.2.840.114 350.1.13.10 4.2.7.2.686 [id number] [facility] 2020-03-08 00:00:00 2020-03-08 00:00:00 Telephone Alissa Owens [facility] Office Building One 1.2840.114 350.1.13.10 4.2.7.2.686 [id number] [facility] 2020-03-07 00:00:00 2020-03-07 00:00:00 Case Management Alissa Owens [facility] Office Building One 1.2840.114 350.1.13.10 4.2.7.2.686 [id number] [facility] 2020-03-01 09:31:48 2020-03-01 09:46:48 Photographer'S Model Visit 2, Adc Lab Alissa Owens [facility] Building 1.2840.114 350.1.13.10 4.2.7.2.686 [id number] [facility] 2020-03-01 09:45:00 2020-03-01 09:45:00 Outpatient R ALISSA OWENS [facility] [id number] [facility] 2020-02-20 16:20:19 2020-02-26 21:40:47 Office Visit Alissa Owens [facility] Building 1.2840.114 350.1.13.10 4.2.7.2.686 [id number] [facility] 2020-02-20 16:15:00 2020-02-20 16:15:00 Outpatient R ALISSA OWENS [facility] [id number] [facility] 2020-02-02 15:00:00 2020-02-02 15:00:00 Outpatient R ALISSA OWENS [facility] [id number] [facility] 2020-01-26 08:45:00 2020-01-26 08:45:00 Outpatient R ALISSA OWENS [facility] [id number] [facility] 2020-01-20 17:40:00 2020-01-20 17:40:00 Outpatient R [facility] [id number] [facility] 2020-01-20 00:00:00 2020-01-20 00:00:00 Telephone GypsyAlissa deleon [facility] Office Building One .114 350.1.13.10 4.2.7.2.686 [id number] [facility] 2020-01-09 09:00:00 2020-01-09 09:00:00 Outpatient R ALISSA OWENS [facility] [id number] [facility] 2020-01-04 13:15:00 2020-01-04 13:15:00 Outpatient R ALISSA OWENS [facility] [id number] [facility] 2019-12-20 00:00:00 2019-12-20 00:00:00 Refill GypsyAlissa deleon A [facility] Office Building One .114 350.1.13.10 4.2.7.2.686 [id number] [facility] 2019-12-20 00:00:00 2019-12-20 00:00:00 Refill GypsyLou deleonful A [facility] Office Building One .114 350.1.13.10 4.2.7.2.686 [id number] [facility] 2019-08-26 00:00:00 2019-08-26 00:00:00 Refill Alissa Owens [facility] Office Building One 1.114 350.1.13.10 4.2.7.2.686 [id number] [facility] 2019-08-07 00:00:00 2019-08-07 00:00:00 Refill Terry Rangel [facility] Office Building One 1.114 350.1.13.10 4.2.7.2.686 [id number] [facility] 2019-05-04 12:20:00 2019-05-04 12:38:28 Outpatient R PASCUAL CONTITANY [facility] [id number] [facility] 2019-02-13 15:50:45 2019-02-13 16:40:42 Urgent Care Froilan Stewart, Attending [facility] 1.114 350.1.13.10 4.2.7.2.686 [id number] [facility] 2019-02-06 00:00:00 2019-02-06 00:00:00 Refill Elizabet Trammell [facility] Office Building One 1.114 350.1.13.10 4.2.7.2.686 [id number] [facility] 2019-02-02 12:12:28 2019-02-02 12:59:44 Office Visit Isaac Conti [facility] Office Building One 1.114 350.1.13.10 4.2.7.2.686 [id number] [facility] 2019-02-02 00:00:00 2019-02-02 00:00:00 Letter (Out) Alissa Owens [facility] Building One 1.2.840.114 350.1.13.10 4.2.7.2.686 [id number] [facility] 2019-01-22 10:18:30 2019-01-22 11:40:00 Emergency Deepak Vaughn [facility] 1.2.840.114 350.1.13.10 4.2.7.2.686 [id number] [facility] 2019-01-22 00:00:00 2019-01-22 00:00:00 Orders Only Doctor Unassigned, Nuevo [facility] 1.2.840.114 350.1.13.10 4.2.7.2.686 [id number] [facility] 2019-01-10 00:00:00 2019-01-10 00:00:00 Orders Only Doctor Unassigned, Nuevo [facility] 1.2.840.114 350.1.13.10 4.2.7.2.686 [id number] [facility] Results Test Description Test Time Test Comments Results Result Co mments Source Angel LynchLIPID [id number] 00:00:00* Test Item Value Reference Range Interpretation Comme nts CHOLESTEROL (test code = 2210) 195 MG/DL TRIGLYCERIDES (test code = 2232) 127 MG/DL HDL CHOLESTEROL (test code = 2220) 51 MG/DL CALC LDL CHOL (test code = 2237) 120 MG/DL RISK RATIO LDL/HDL (test cod e = 2238) 2.35 RATIO Angel LynchCOMPREHENSIVE METABOLIC [id number] 00:00:00* Test Item Value Reference Range Interpretation Comme nts GLUCOSE (test code = 2217) 129 MG/DL BUN (test code = 2208) 15 MG/DL CREATININE (test code = 2214) 0.81 MG/DL eGFR (2020 CKD-EPI) (test code = 56075) 114 ML/MIN/1.73 CALC BUN/CREAT (test code = 2235) 19 RATIO SODIUM (test code = 2231) 140 MEQ/L POTASSIUM (test code = 2228) 3.7 MEQ/L CHLORIDE (test code = 2215) 97 MEQ/L CARBON DIOXIDE (test code = 2206) 29 MEQ/L CALCIUM (test code = 2209) 10.3 MG/DL PROTEIN, TOTAL (test code = 2229) 7.0 G/DL ALBUMIN (test code = 2201) 4.3 G/DL CALC GLOBULIN (test code = 2240) 2.7 G/DL CALC A/G RATIO (test code = 2234) 1.6 RATIO BILIRUBIN, TOTAL (test code = 2207) 0.5 MG/DL ALKALINE PHOSPHATASE (test code = 2204) 121 U/L AST (test code = 2218) 26 U/L ALT (test code = 2219) 45 U/L Angel LynchLIPID [id number] 00:00:00* Test Item Value Reference Range Interpretation Comme nts CHOLESTEROL (test code = 2210) 195 MG/DL TRIGLYCERIDES (test code = 2232) 127 MG/DL HDL CHOLESTEROL (test code = 2220) 51 MG/DL CALC LDL CHOL (test code = 2237) 120 MG/DL RISK RATIO LDL/HDL (test cod e = 2238) 2.35 RATIO Angel Gage SyedCOMPREHENSIVE METABOLIC [id number] 00:00:00* Test Item Value Reference Range Interpretation Comme nts GLUCOSE (test code = 2217) 129 MG/DL BUN (test code = 2208) 15 MG/DL CREATININE (test code = 2214) 0.81 MG/DL eGFR (2020 CKD-EPI) (test code = 60365) 114 ML/MIN/1.73 CALC BUN/CREAT (test code = 2235) 19 RATIO SODIUM (test code = 2231) 140 MEQ/L POTASSIUM (test code = 2228) 3.7 MEQ/L CHLORIDE (test code = 2215) 97 MEQ/L CARBON DIOXIDE (test code = 2206) 29 MEQ/L CALCIUM (test code = 2209) 10.3 MG/DL PROTEIN, TOTAL (test code = 2229) 7.0 G/DL ALBUMIN (test code = 2201) 4.3 G/DL CALC GLOBULIN (test code = 2240) 2.7 G/DL CALC A/G RATIO (test code = 2234) 1.6 RATIO BILIRUBIN, TOTAL (test code = 2207) 0.5 MG/DL ALKALINE PHOSPHATASE (test code = 2204) 121 U/L AST (test code = 2218) 26 U/L ALT (test code = 2219) 45 U/L Angel LynchLIPID [id number] 00:00:00* Test Item Value Reference Range Interpretation Comme nts CHOLESTEROL (test code = 2210) 195 MG/DL TRIGLYCERIDES (test code = 2232) 127 MG/DL HDL CHOLESTEROL (test code = 2220) 51 MG/DL CALC LDL CHOL (test code = 2237) 120 MG/DL RISK RATIO LDL/HDL (test cod e = 2238) 2.35 RATIO Angel LynchCOMPREHENSIVE METABOLIC [id number] 00:00:00* Test Item Value Reference Range Interpretation Comme nts GLUCOSE (test code = 2217) 129 MG/DL BUN (test code = 2208) 15 MG/DL CREATININE (test code = 2214) 0.81 MG/DL eGFR (2020 CKD-EPI) (test code = 65530) 114 ML/MIN/1.73 CALC BUN/CREAT (test code = 2235) 19 RATIO SODIUM (test code = 2231) 140 MEQ/L POTASSIUM (test code = 2228) 3.7 MEQ/L CHLORIDE (test code = 2215) 97 MEQ/L CARBON DIOXIDE (test code = 2206) 29 MEQ/L CALCIUM (test code = 2209) 10.3 MG/DL PROTEIN, TOTAL (test code = 2229) 7.0 G/DL ALBUMIN (test code = 2201) 4.3 G/DL CALC GLOBULIN (test code = 2240) 2.7 G/DL CALC A/G RATIO (test code = 2234) 1.6 RATIO BILIRUBIN, TOTAL (test code = 2207) 0.5 MG/DL ALKALINE PHOSPHATASE (test code = 2204) 121 U/L AST (test code = 2218) 26 U/L ALT (test code = 2219) 45 U/L Angel LynchLIPID [id number] 00:00:00* Test Item Value Reference Range Interpretation Comme nts CHOLESTEROL (test code = 2210) 195 MG/DL TRIGLYCERIDES (test code = 2232) 127 MG/DL HDL CHOLESTEROL (test code = 2220) 51 MG/DL CALC LDL CHOL (test code = 2237) 120 MG/DL RISK RATIO LDL/HDL (test cod e = 2238) 2.35 RATIO Angel LynchCOMPREHENSIVE METABOLIC [id number] 00:00:00* Test Item Value Reference Range Interpretation Comme nts GLUCOSE (test code = 2217) 129 MG/DL BUN (test code = 2208) 15 MG/DL CREATININE (test code = 2214) 0.81 MG/DL eGFR (2020 CKD-EPI) (test code = 37950) 114 ML/MIN/1.73 CALC BUN/CREAT (test code = 2235) 19 RATIO SODIUM (test code = 2231) 140 MEQ/L POTASSIUM (test code = 2228) 3.7 MEQ/L CHLORIDE (test code = 2215) 97 MEQ/L CARBON DIOXIDE (test code = 2206) 29 MEQ/L CALCIUM (test code = 2209) 10.3 MG/DL PROTEIN, TOTAL (test code = 2229) 7.0 G/DL ALBUMIN (test code = 2201) 4.3 G/DL CALC GLOBULIN (test code = 2240) 2.7 G/DL CALC A/G RATIO (test code = 2234) 1.6 RATIO BILIRUBIN, TOTAL (test code = 2207) 0.5 MG/DL ALKALINE PHOSPHATASE (test code = 2204) 121 U/L AST (test code = 2218) 26 U/L ALT (test code = 2219) 45 U/L Angel LynchLIPID [id number] 00:00:00* Test Item Value Reference Range Interpretation Comme nts CHOLESTEROL (test code = 2210) 195 MG/DL TRIGLYCERIDES (test code = 2232) 127 MG/DL HDL CHOLESTEROL (test code = 2220) 51 MG/DL CALC LDL CHOL (test code = 2237) 120 MG/DL RISK RATIO LDL/HDL (test cod e = 2238) 2.35 RATIO Angel LynchPOCT SARS-COV-2 ANTIGEN (BINAX NOW)2023-06-12 19:51:00* Test Item Value Reference Range Interpretation Comme nts POCT SARS-COV-2 ANTIGEN (kory t code = 96817-6) Not Detected Not Detected On board controls acceptable with C Line (test code = 3574) Yes Lab Interpretation (test cod e = 32206-3) [facility]2022-10-05 01:46:00* Test Item Value Reference Range Interpretation Comme nts POCT SARS-COV-2 ANTIGEN (test code = 50510-1) Not Detected Not Detected On board controls acceptable with C Line (test code = 3574) Yes SANDY (test code = SANDY) accurate developme nt and interpretation of all internal controls Lab Interpretation (test code = 08192-8) Normal [facility] Notes Date/Time Note Provider Source 2024-07-14 13:57:02 Chief Complaint Patient presents with Establish Care No PCP within the past 3 years. He has seen providers at [facility] in [place]. Last annual over a year. Elba Willingham MA [facility]2024-10-02 23:46:55 Pt given printed and verbal discharge instructions regarding ear ache Discussed ibuprofen and to take with food to avoid GI distress. Pt verbalized understanding of instructions, pt awake alert oriented, resp reg unlabored, skin w/d, color appropriate for race, moves all ext well,pt encouraged to follow up with pcp Advised to seek medical attention for new/prolonged/worsening of symptoms, No adverse reaction to meds given in ER noted upon discharge Awake, alert oriented, resp reg unlabored, skin w/d, pt leaving amb with steady gait, in no apparent distress, [id number] 23:36:13 Pt states he had a ear infection in L ear and the R ear is beginning to feel like it is feeling infected too. He put ear drops in his R ear and it is in pain now. Egan RNGen[facility] [id number] 18:12:02 Written/verbal d/c instructions, out of er no distress Mary Pichardo [facility] / [id number] 17:56:41 Patient arrives to ER with c/o Left ear fullness and pain with drainage, patient had "bilateral ear tubes placed six weeks ago" has appointment with nurse researcher Thursday. Past Medical History: Diagnosis Date Abnormal liver ultrasound 09/18/2022 Dermatitis 02/26/2020 Dyslipidemia Elevated LFTs 08/11/2018 Erythrocytosis Essential hypertension, benign 06/25/2017 Gallstones 09/18/2022 Prediabetes Valvular heart disease Rupesh Pappas RNGen[facility] [id number] 00:00:00 Angel GageDinorah [facility]2024-07-28 21:27:18 Pt left with out the discharge paper work, able to talk to him in the phone to filler picker his medicine at [facility]. Gricelda Parker [facility] / [id number] 20:48:06 Pt arrived ambulatory with c/o decreased hearing in left ear. Scheduled for tube placement at the end of January. Subha Camacho [facility] / [id number] 10:54:45 Altagracia Carson is a 43 year old male is calling to request that 2 medications be called in again to the pharmacy. Pt states he only took 1 day of both and lost the medications. azithromycin 250 mg tablet predniSONE 20 mg tablet [place] [id number] Pt would like a call back once done Bernarda Hayes 01/17/2024 10:56 AM [id number] 00:00:00 Angel Huynh [facility]2024-06-27 00:00:00 Angel Huynh [facility]2024-06-24 00:00:00 Angel Huynh [place] [id number] 07:38:23 Pt given printed and verbal discharge instructions regarding Left ear pain, encouraged hydration, Pt verbalized understanding of instructions, pt awake alert oriented, resp reg unlabored, skin w/d, color appropriate for race, moves all ext well,pt encouraged to follow up with pcp Advised to seek medical attention for new/prolonged/worsening of symptoms. Awake, alert oriented, resp reg unlabored, skin w/d, pt leaving amb with steady gait, in no apparent distress. Gricelda Parker [facility] / [id number] 07:05:29 Altagracia Carson is a 43 year old male c/o left ear pain for 1 week, states on augmentin and ciprodex otic for swimmers ear, sates can't hear and swelling is worse Mary Pichardo [place] [id number] 06:57:00 EMERGENCY DEPARTMENT ENCOUNTER [facility] Patient Name: Altagracia Carson Date of : 1980 43 year old Exam Room:[place] [address] Primary Care Physician: Elizabet Trammell [facility] Patient Escorted by: Self [9] Mode of Arrival: Personal means [1] EMS Treatment Prior to ED Arrival: ED Events Date/Time Event User Comments 12/09/23726 Medical Screening Begins MAYURI EPPERSON MD -- 12/09/23726 First Provider Evaluation MAYURI EPPERSON MD -- Chief Complaint Chief Complaint Patient presents with Ear Pain ED Triage Notes Mary Pichardo RN 12/09/2023 07:06 Altagracia Carson is a 43 year old male c/o left ear pain for 1 week, states on augmentin and ciprodex otic for swimmers ear, sates can't hear and swelling is worse HPI History provided by: Patient Ear Pain Location: Left Quality: Aching Severity: Moderate Timing: Constant Chronicity: New Relieved by: Nothing Worsened by: Nothing Associated symptoms: no abdominal pain, no cough, no fever, no headaches and no vomiting Past Medical History / Immunizations Past Medical History: Diagnosis Date Abnormal liver ultrasound 09/18/2022 Dermatitis 02/26/2020 Dyslipidemia Elevated LFTs 08/11/2018 Erythrocytosis Essential hypertension, benign 06/25/2017 Gallstones 09/18/2022 Prediabetes Valvular heart disease Tetanus received in last 5 years: Yes Childhood immunizations: Up-to-date Past Surgical History Past Surgical History: Procedure Laterality Date MYRINGOTOMY REPAIR TEAR DUCTS TONSILLECTOMY Allergies Allergies Allergen Reactions Bactrim [Sulfamethoxazole-Trimethoprim] Swelling Benadryl [Diphenhydramine Hcl] Swelling Hydrocodone Itching Lisinopril Other - See comments Sulfa (Sulfonamide Antibiotics) Rash Vicodin [Hydrocodone-Acetaminophen] Itching Social History Tobacco Use Never smoked or used smokeless tobacco. Alcohol Use Not Currently. Drug Use No. Review of Systems Review of Systems Constitutional: Negative. Negative for chills, fatigue, fever and unexpected weight change. HENT: Positive for ear pain. Eyes: Negative. Negative for discharge and itching. Respiratory: Negative. Negative for cough, chest tightness, shortness of breath and wheezing. Cardiovascular: Negative. Negative for chest pain and palpitations. Gastrointestinal: Negative. Negative for abdominal distention, abdominal pain, nausea and vomiting. Genitourinary: Negative. Negative for dysuria, urgency, frequency and flank pain. Musculoskeletal: Negative. Skin: Negative. Negative for color change, pallor and wound. Neurological: Negative. Negative for dizziness, syncope, light-headedness and headaches. Psychiatric/Behavioral: Negative. Negative for agitation and behavioral problems. All other systems reviewed and are negative. Endocrine: Endocrine negative Physical Exam ED Triage Vitals [12/09/23 0706] Weight 92.1 kg (203 lb) Actual or estimated Estimated by patient/family report Height 1.651 m (5' 5") BP (!) 122/94 Pulse 86 Resp 14 Temp 37 ?C (98.6 ?F) Temp source Oral SpO2 96 % Measured on Room air Physical Exam Vitals reviewed. Constitutional: Appearance: He is well-developed. HENT: Head: Normocephalic and atraumatic. Nose: Nose normal. Eyes: Conjunctiva/sclera: Conjunctivae normal. Neck: Trachea: No tracheal deviation. Abdominal: Tenderness: There is no rebound. Musculoskeletal: General: Normal range of motion. Cervical back: Normal range of motion and neck supple. Skin: General: Skin is warm and dry. Neurological: Mental Status: He is alert and oriented to person, place, and time. Cranial Nerves: No cranial nerve deficit. Sensory: No sensory deficit. Psychiatric: Behavior: Behavior normal. Labs Lab Results - No data to display Imaging No orders to display Orders and Treatments No orders of the defined types were placed in this encounter. No orders of the defined types were placed in this encounter. Procedures Procedures MDM Patient was evaluated for an emergency medical condition related to Ear Pain Diagnoses considered but not limited to: Otitis Externa Labs:were ordered, and resulted, any relevant abnormalities were considered. Abnormal Labs Reviewed - No data to display Imaging: Not earning Diagnosis/Impression as of 12/09/23 0734 Left ear pain Acute otitis externa of left ear, unspecified type Medical Decision Making Problems Addressed: Acute otitis externa of left ear, unspecified type: acute illness or injury Left ear pain: acute illness or injury Pulse Oximetry: is not hypoxic. Interpreted. Reassessment:stable Communication with air quality consultant: None. Limitations to patient care and compliance: none. Plan & Summary: The patient is a 43-year-old male presents with left knee pain. He was recently diagnosed with otitis externa. He is taking Ciprodex and Augmentin. He continues to have swelling and pain. There is no mastoid involvement. Today is a holiday. However, I will place a stat referral to ENT. He states that he has hearing problems and his left ear which is affected ear is his best hearing ear. The patient was discharged to follow-up. He can return for any questions or concerns. Altagracia Carson is a 43 year old male presenting for complaint(s) listed within the note. . Patient has been deemed stable for discharge. Follow up with providers listed below for further evaluation and management. Return precautions given if symptoms worsen as documented in the discharge instructions. History, physical exam findings, results of visit, diagnosis, medication regimens and plan of future care have been considered. Additional MDM may be found in the ED course. Vital signs were rechecked before final disposition and determined to be stable. Disposition & Follow Up ED Disposition None Patient's Medications START taking these medications No medications on file CONTINUE taking these medications which have NOT CHANGED ALBUTEROL 90 MCG/ACTUATION INHALER Inhale 2 Puffs every 6 (six) hours as needed for Wheezing or Shortness of Breath. AMOXICILLIN-CLAVULANATE 875-125 MG PER TABLET Take 1 tablet by mouth in the morning and 1 tablet in the evening. Do all this for 10 days. AZELASTINE 137 MCG (0.1 %) NASAL SPRAY Use 1 Hiko in each nostril in the morning and 1 Hiko in the evening. Use in each nostril as directed AZITHROMYCIN (ZITHROMAX Z-ELIDIA) 250 MG TABLET Z pack as directed. BENZONATATE 100 MG CAPSULE Take 2 capsules by mouth every 8 (eight) hours as needed for Cough. CIPROFLOXACIN-DEXAMETHASONE 0.3-0.1 % OTIC DROPS Place 4 Drops in left ear in the morning and 4 Drops in the evening. Do all this for 7 days. FLUTICASONE PROPIONATE 50 MCG/ACTUATION NASAL SPRAY Use 1 Hiko in each nostril in the morning. LOSARTAN 50 MG TABLET Take 1 tablet by mouth every morning. MUST BE SEEN FOR FURTHER REFILLS PREDNISONE 20 MG TABLET Take 2 tablets daily for 2 days, then one tablet daily for 3 days, then half tablet daily for 3 days, then stop. START taking Modified Medications as Prescribed No medications on file STOP taking these medications No medications on file Mayuri Epperson Jr., MD Clinical Intake Specialist [facility] Emergency Department Reaction[employer] Dictation Software is used frequently and may produce errors. Promptly contact for obvious discrepancies. Mayuri Epperson MD 12/09/23 1834 [place] [id number] 00:00:00 Angel Huynh [facility]2024-06-14 23:59:26 Pt dc'd home ambulatory with 2x prescriptions. Pt v/u of dc instructions, prescription use, and follow up as needed. Moraima Cage [place] [id number] 22:55:08 Patient arrived ambulatory to ED c/o left ear pain. Patient has been seen twice at Urgent Care and PCP on Thursday flushed ear out and pieces of Q tips came out. Patient states "it still feels like there is something in there." Patient has been taking steroid drops. [place] [id number] 00:00:00 Angel Huynh [facility]2024-06-06 00:00:00 [place] [id number] 07:39:14 Notes: MUST BE SEEN FOR FURTHER REFILLS Last Refilled: losartan 50 mg tablet 90 tablet 3 08/07/2022 -- No Sig: Take 1 tablet by mouth every morning. 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 Showing future appointments within next 150 days with a meds authorizing provider and meeting all other requirements Alexsandra Mcwilliams [facility]
[2024-09-19 13:52] LABS: Absolute Lymphocytes (CBC) 0.9 K/uL (0.7-4.9); Absolute Monocytes 1.4 K/uL (0.1-1.3); Absolute Neutrophil 12.6 K/uL (1.8-8.0); Basophils % 0.3 % (0-1.3); Hematocrit 53.5 % (39.6-49.0); Hemoglobin 17.4 g/dL (13.6-17.9); Lymphocytes % 6.2 % (15.3-44.8); MCH 25.4 pg (27.0-35.0); MCHC 32.5 g/dL (32.0-36.0); MCV 78.3 fL (80-100); MPV 8.8 fL (7.6-11.3); Monocytes % 9.1 % (3.3-12.3); Neutrophils % 84.4 % (41.7-73.7); Platelets 250 thou/uL (152-406); RBC Red Blood Cell Count 6.83 M/uL (4.33-5.43); Red Cell Distribution Width 18.4 % (12.1-15.2)
[2024-09-19 14:09] LABS: Albumin 3.7 g/dL (3.4-5.0); Albumin/Globulin Ratio 0.9 (1.1-1.8); Anion Gap 10.2 mEq/L (5.0-15.0); Bilirubin Total 0.8 mg/dL (0.2-1.0); Globulin 4.1 g/dL (2.3-3.5); Potassium 3.2 mEq/L (3.5-5.1); Protein, Total 7.8 g/dL (6.4-8.2)
[2024-09-19] MEDS ORDERED: NA CHLORIDE 0.9% 1,000 ML ONE ×2 (14:27→14:46)
[2024-09-19] MEDS ORDERED: FAMOTIDINE 20 MG/2 ML VIAL IV ONE (14:27)
[2024-09-19] MEDS ORDERED: CIPROFLOXACIN 400mg IV 0 MG/0 ML BAG IV ONE (14:28)
[2024-09-19] MEDS ORDERED: ONDANSETRON 4 MG/2 ML VIAL ONE (14:45)
[2024-09-19] MEDS ORDERED: CEFTRIAXONE 1000 MG/VIAL ONE (14:45)
[2024-09-19] MEDS ORDERED: PROMETHAZINE INJ 25 MG/ML AMP ONE (14:45)
[2024-09-19] MEDS ORDERED: METRONIDAZOLE 500mg IVPB 0 MG/0 ML BAG IV ONE (14:46)
[2024-09-19] MEDS ORDERED: NA CHLORIDE 0.9% 100 ML ONE (14:46)
[2024-09-19 14:47] LABS: Specific Gravity 1.011 (1.005-1.030); Sqamous Epithelial None Seen /HPF (None Seen); Urine Bacteria None Seen /HPF (<20); Urine Bilirubin NEGATIVE (Negative); Urine Blood 2+ (Negative); Urine Clarity Clear (Clear); Urine Color Light-Yellow (Yellow); Urine Crystals Unidentified Few /HPF (None Seen); Urine Culture Reflex Order NOT NEEDED; Urine Glucose 2+ (Negative); Urine Ketones TRACE (Negative); Urine Microscopic Reflex YN ORDER UMIC; Urine Nitrite NEGATIVE (Negative); Urine Protein NEGATIVE (Negative); Urine RBC >50 /HPF (None Seen); Urine Urobilinogen Normal (Normal); Urine WBC <5 /HPF (<5); Urine Yeast (Budding) Trace /HPF (None Seen); Urine pH 7.5 (5.0-7.0)
--- NOTE | 2024-09-19 14:50 | RAD REPORT ---
EXAMINATION: Abdomen Pelvis W Contrast CLINICAL INDICATION: Male, 44 years old.ABD PAIN TECHNIQUE: CT abdomen and pelvis was performed, after the administration of IV contrast, as per [facility] protocol. Axial, sagittal and coronal reconstructions were obtained. One or more of the following dose reduction techniques were used: Automated exposure control, adjustment of the mA and/o r kV according to patient size, and/or iterative reconstruction. Unless otherwise specified, incidental findings do not require dedicated imaging follow-up. [id number]. COMPARISON: No prior exam. FINDINGS: LOWER CHEST: No acute process identified.No significant pericardial effusion. Mild circumferential th ickening of the distal esophagus which could reflect esophagitis. UPPER GI: No significant abnormality. LIVER: Hepatic steatosis, but otherwise unremarkable. GALLBLADDER/BILE DUCTS: Cholelithiasis without CT evidence of acute cholecystitis.? PANCREAS: No mass, ductal dilation, or meenakshi-pancreatic fluid. SPLEEN: Unremarkable. ADRENALS: No adrenal masses. KIDNEYS AND URETERS: Mild left-sided hydronephrosis. Two stones in the left distal ureter. The larges t measures 2 mm and the smaller (more proximal) stone measures 1-2 mm. .No suspicious renal mass.Punctate stones in both kidneys. ABDOMINAL AORTA AND OTHER VESSELS: Mild atherosclerotic changes. PERITONEUM: No abnormal free fluid. No free air. LYMPH NODES: No pathologic lymphadenopathy. ABDOMINAL WALL: Unremarkable SMALL BOWEL/COLON: Small bowel has normal course and caliber. No colonic wall thickening or pericolon ic inflammatory changes.Normal appendix. URINARY BLADDER: Underdistended but grossly unremarkable. REPRODUCTIVE ORGANS: No pathologic process. MUSCULOSKELETAL: T12 compression deformity is either chronic or developmental. Motion artifact at the pelvis. ADDITIONAL FINDINGS: None. IMPRESSION: Mild left-sided hydroureteronephrosis secondary to two small left distal ureteral calculi. The larges t measures approximately [address] evidence of acute cholecystitis.
[2024-09-19] MEDS ORDERED: MORPHINE 4 MG/ML SYR ONE (14:52)
--- NOTE | 2024-09-19 15:06 | ER ---
Nurse's Notes [facility] Name: Cuba Rosales Age: 44 yrs Sex: Male : 1980 Arrival Date: 09/19/2024 Time: 13:27 Bed 6 Private MD: Diagnosis: Hydronephrosis with renal and ureteral calculous obstruction;Other cholelithiasis without obstruction Presentation: 09/19 13:29 Chief complaint: EMS states: Low back pain since yesterday, LLQ abdominal pain since ph this morning. Coronavirus screen: At this time, the client does not indicate any symptoms associated with coronavirus-19. Ebola Screen: No symptoms or risks identified at this time. Initial Sepsis Screen: Does the patient meet any 2 criteria? No. Patient's initial sepsis screen is negative. Does the patient have a suspected source of infection? No. Patient's initial sepsis screen is negative. Risk Assessment: Do you want to hurt yourself or someone else? Patient reports no desire to harm self or others. Onset of symptoms was September 19, 2024. 13:29 Method Of Arrival: EMS: [facility] ph 13:29 Acuity: PUMA 3 ph 13:46 Care prior to arrival: Medication(s) given: Toradol IV IV initiated. 20 GA, in the left jl7 hand. Triage Assessment: 13:30 General: Appears in no apparent distress. uncomfortable, Behavior is calm, cooperative, ph appropriate for age. Pain: Complains of pain in left upper quadrant and left lower quadrant Pain currently is 6 out of 10 on a pain scale. Neuro: [place] Agitation-Sedation Scale (RASS): 0 - Alert and Calm Level of Consciousness is awake, alert, obeys commands, Oriented to person, place, time, situation. Cardiovascular: Patient's skin is warm and dry. Respiratory: Airway is patent Respiratory effort is even, unlabored, Respiratory pattern is regular, symmetrical. GI: Abdomen is round obese, Abd is soft Abdomen is tender to palpation in left upper quadrant and left lower quadrant. Derm: Skin is dry, Skin is pale, Skin temperature is warm. Historical: - Allergies: 13:30 Bactrim; ph 13:30 Benadryl; ph 13:30 Clindamycin; ph 13:30 Demerol; ph 13:30 Lisinopril; ph 13:30 Sulfa (Sulfonamide Antibiotics); ph - PMHx: 13:30 Hypertension; ph - PSHx: 13:30 ear tubes (en); Tonsillectomy; ph - Immunization history:: Adult Immunizations unknown. - Infectious Disease History:: Denies. - Social history:: Smoking status: Patient denies any tobacco usage or history of. - Family history:: not pertinent. Screenin:47 [facility] ED Fall Risk Assessment (Adult) History of falling in the last 3 months, jl7 including since admission No falls in past 3 months (0 pts) Confusion or Disorientation No (0 pts) Intoxicated or Sedated No (0 pts) Impaired Gait No (0 pts) Mobility Assist Device Used No (0 pt) Altered Elimination No (0 pt) Score/Fall Risk Level 0 - 2 = Low Risk Oriented to surroundings, Maintained a safe environment. Abuse screen: Denies threats or abuse. Denies injuries from another. Nutritional screening: No deficits noted. Tuberculosis screening: No symptoms or risk factors identified. Assessment: 13:33 General: see triage. ph 14:30 Reassessment: Patient appears in no apparent distress at this time. No changes from jl7 previously documented assessment. Patient and/or family updated on plan of care and expected duration. Pain level reassessed. Patient is alert, oriented x 3, equal unlabored respirations, skin warm/dry/pink. 15:28 Reassessment: Pt will be discharged once fluids are done infusing. jl7 15:30 Reassessment: Patient appears in no apparent distress at this time. Patient and/or 7 family updated on plan of care and expected duration. Pain level reassessed. Patient is alert, oriented x 3, equal unlabored respirations, skin warm/dry/pink. Patient states feeling better. Patient states symptoms have improved. Vital Signs: 13:29 BP 155 / 105; Pulse 80; Resp 17; Temp 97.9; Pulse Ox 100% ; Weight 90.72 kg; Height 5 ph ft. 7 in. ; Pain 6/10; 14:15 BP 151 / 96; Pulse 79; Resp 15; Pulse Ox 100% ; jl7 13:29 Body Mass Index 31.32 (90.72 kg, 170.18 cm) ph 13:29 Pain Scale: Adult ED Course: 13:29 Patient arrived in ED. ph 13:29 Bharat Kwan MD is Attending Physician. brayan 13:30 Triage completed. ph 13:30 Arm band placed on right wrist. ph 13:46 Jaron Sebastian RN is Primary Nurse. jl7 13:47 Patient has correct armband on for positive identification. Bed in low position. Call jl7 light in reach. Side rails up X 1. Provided Education on: use of call sharma. 13:47 Initial lab(s) drawn, by me, sent to lab. Maintain EMS IV. Dressing intact. Good blood jl7 return noted. Site clean \T\ dry. Gauge \T\ site: 20 left hand. Flushed with 10 mL NS. 14:37 CT Abd/Pelvis - IV Contrast Only In Process Unspecified. EDMS 15:04 Tahir Hunt MD is Referral Physician. brayan 16:35 No provider procedures requiring assistance completed. IV discontinued, intact, jl7 bleeding controlled, No redness/swelling at site. Pressure dressing applied. Administered Medications: 14:50 Not Given (Patient Refused): ondansetron 4 mg IVP once; over 2 minutes jl7 14:50 Not Given (Patient Refused): ondansetron 4 mg IVP once; over 2 minutes jl7 14:50 Not Given (Patient Refused): [id number] mg IVP once jl7 14:54 Drug: morphine IVP or IV 4 mg IVP once over 4 mins Route: IVP; Infused Over: 4 mins; jl7 Site: left hand; 15:15 Follow up: Response: No adverse reaction; Pain is decreased jl7 15:05 Not Given (Duplicate Order): [id number] mg 100 ml IVPB at 200 ml/hr once over 30 brayan mins 15:08 Not Given (Patient Refused): [id number] mg IVP once; dilute with 10 mL 0.9% NaCl; jl7 give over 2 minutes 15:08 Drug: NS 0.9% IV 1000 ml IV at 1 bolus Per protocol; to be given as a bolus over 60 jl7 minutes Route: IV; Rate: 1 bolus; Site: left hand; 16:30 Follow up: IV Status: Completed infusion jl7 15:13 Not Given (Duplicate Order): [id number] mg 200 ml IVPB once over 60 mins brayan 15:21 Drug: NS 0.9% IV 1000 ml IV at 1000 ml once; to be given as a bolus over 60 minutes jl7 Route: IV; Rate: 1000 ml; Site: left hand; 16:30 Follow up: IV Status: Completed infusion jl7 15:21 Drug: Flomax PO 0.4 mg PO once Route: PO; jl7 16:37 Follow up: Response: No adverse reaction jl7 15:21 Drug: Ciprofloxacin PO 500 mg PO once Route: PO; jl7 15:30 Follow up: Response: No adverse reaction jl7 15:25 Not Given (Physician Discretion): rocephin2 grams IV at per protocol once; Given slow jl7 IV push per pharmarcy instructions 15:25 Not Given (Patient Refused): mg IVP once jl7 15:26 Drug: Rocephin IV 1 grams IV at calculated rate once; Given slow IV push per pharmacy jl7 instructions Route: IV; Rate: calculated rate; Site: left hand; 15:45 Follow up: Response: No adverse reaction; IV Status: Completed infusion jl7 Medication: 13:47 VIS not applicable for this client. 7 Outcome: 15:04 Discharge ordered by MD. schmidt 16:35 Discharged to home ambulatory, jl7 16:35 Condition: stable 16:35 Discharge instructions given to patient, Instructed on discharge instructions, follow up and referral plans. medication usage, Demonstrated understanding of instructions, follow-up care, medications, Prescriptions given X 4, 16:36 Patient left the ED. jl7 Signatures: Dispatcher [employer] Bharat Tamez MD MD cha Hall, Patricia, RN RN Jaron Avery RN RN jl7
--- NOTE | 2024-09-19 15:06 | EDPHYS ---
Physician Documentation [facility] Name: Cuba Rosales Age: 44 yrs Sex: Male : 1980 Arrival Date: 09/19/2024 Time: 13:27 Bed 6 Private MD: ED Physician Bharat Kwan HPI: 09/19 13:34 This 44 yrs old Male presents to ER via EMS with complaints of Abdominal Pain.brayan 13:34 The patient presents with abdominal pain in the lower abdomen, in the left upper brayan quadrant, in the left lower quadrant. Onset: The symptoms/episode began/occurred 1 day(s) ago. The symptoms do not radiate. Associated signs and symptoms: none. The symptoms are described as crampy. Modifying factors: The symptoms are alleviated by nothing. Severity of pain: At its worst the pain was moderate in the emergency department the pain is unchanged. The patient has not experienced similar symptoms in the past. Historical: - Allergies: 13:30 Bactrim; ph 13:30 Benadryl; ph 13:30 Clindamycin; ph 13:30 Demerol; ph 13:30 Lisinopril; ph 13:30 Sulfa (Sulfonamide Antibiotics); ph - PMHx: 13:30 Hypertension; ph - PSHx: 13:30 ear tubes (en); Tonsillectomy; ph - Immunization history:: Adult Immunizations unknown. - Infectious Disease History:: Denies. - Social history:: Smoking status: Patient denies any tobacco usage or history of. - Family history:: not pertinent. ROS: 13:34 Constitutional: Negative for fever, chills, and weight loss, Eyes: Negative for injury, brayan pain, redness, and discharge, ENT: Negative for injury, pain, and discharge, Neck: Negative for injury, pain, and swelling, Cardiovascular: Negative for chest pain, palpitations, and edema, Respiratory: Negative for shortness of breath, cough, wheezing, and pleuritic chest pain, Back: Negative for injury and pain, : Negative for injury, bleeding, discharge, and swelling, MS/Extremity: Negative for injury and deformity, Skin: Negative for injury, rash, and discoloration, Neuro: Negative for headache, weakness, numbness, tingling, and seizure, Psych: Negative for depression, anxiety, suicide ideation, homicidal ideation, and hallucinations, Allergy/Immunology: Negative for hives, rash, and allergies, Endocrine: Negative for neck swelling, polydipsia, polyuria, polyphagia, and marked weight changes, Hematologic/Lymphatic: Negative for swollen nodes, abnormal bleeding, and unusual bruising, 13:34 Abdomen/GI: Positive for abdominal pain, of the left lower quadrant, Exam: 13:34 Constitutional: This is a well developed, well nourished patient who is awake, alert, brayan and in no acute distress. Head/Face: Normocephalic, atraumatic. Eyes: Pupils equal round and reactive to light, extra-ocular motions intact. Lids and lashes normal. Conjunctiva and sclera are non-icteric and not injected. Cornea within normal limits. Periorbital areas with no swelling, redness, or edema. ENT: Nares patent. No nasal discharge, no septal abnormalities noted. Tympanic membranes are normal and external auditory canals are clear. Oropharynx with no redness, swelling, or masses, exudates, or evidence of obstruction, uvula midline. Mucous membranes moist. Neck: Trachea midline, no thyromegaly or masses palpated, and no cervical lymphadenopathy. Supple, full range of motion without nuchal rigidity, or vertebral point tenderness. No Meningismus. Chest/axilla: Normal chest wall appearance and motion. Nontender with no deformity. No lesions are appreciated. Cardiovascular: Regular rate and rhythm with a normal S1 and S2. No gallops, murmurs, or rubs. Normal PMI, no JVD. No pulse deficits. Respiratory: Lungs have equal breath sounds bilaterally, clear to auscultation and percussion. No rales, rhonchi or wheezes noted. No increased work of breathing, no retractions or nasal flaring. Back: No spinal tenderness. No costovertebral tenderness. Full range of motion. Male : Normal genitalia with no discharge or lesions. Skin: Warm, dry with normal turgor. Normal color with no rashes, no lesions, and no evidence of cellulitis. MS/ Extremity: Pulses equal, no cyanosis. Neurovascular intact. Full, normal range of motion., bilateral aka Neuro: Awake and alert, GCS 15, oriented to person, place, time, and situation. Cranial nerves II-XII grossly intact. Motor strength 5/5 in all extremities. Sensory grossly intact. Cerebellar exam normal. Normal gait. Psych: Awake, alert, with orientation to person, place and time. Behavior, mood, and affect are within normal limits. 13:34 Abdomen/GI: Inspection: distension, that is moderate, Bowel sounds: active, all quadrants, Palpation: moderate abdominal tenderness, in the left upper quadrant and left lower quadrant, Liver: no appreciated palpable abnormalities, Hernia: not appreciated, 13:34 Musculoskeletal/extremity: DVT Exam: No signs of deep vein thrombosis. no pain, no swelling, no tenderness, negative Homans' sign noted on exam, no appreciated bluish discoloration, no erythema, no increased warmth, 13:34 Skin: abscess, not appreciated, cellulitis, is not appreciated, induration, is not appreciated, injury, is not appreciated, no rash present. Vital Signs: 13:29 BP 155 / 105; Pulse 80; Resp 17; Temp 97.9; Pulse Ox 100% ; Weight 90.72 kg; Height 5 ph ft. 7 in. ; Pain 6/10; 14:15 BP 151 / 96; Pulse 79; Resp 15; Pulse Ox 100% ; jl7 13:29 Body Mass Index 31.32 (90.72 kg, 170.18 cm) ph 13:29 Pain Scale: Adult ph MDM: 13:29 Medical Screening Exam initiated brayan 13:37 Differential diagnosis: bowel obstruction, diverticulitis, gastritis, Mesenteric brayan ischemia or infarction, non-specific abd pain, pancreatitis, Peptic Ulcer Disease, Perf. Duodenal Ulcer, Perf. Gastric Ulcer, Peritonitis, Prostatitis, Pyelonephritis, Ureterolithiasis. Data reviewed: vital signs, nurses notes, lab test result(s), EKG, radiologic studies, plain films. Consideration of Admission/Observation Escalation of care including admission/observation considered. I considered the following discharge prescriptions or medication management in the emergency department Medications were administered in the Emergency Department. See MAR. Independent interpretation of the following test(s) in the Emergency Department. Test considered but Not performed: Ultrasound no abd usg. Historians other than the Patient: pt well informed. Care significantly affected by the following chronic conditions: Hypertension, Obesity. Counseling: I had a detailed discussion with the patient and/or guardian regarding the historical points, exam findings, and any diagnostic results supporting the discharge/admit diagnosis, the presence of at least one elevated blood pressure reading (>120/80) during this emergency department visit, lab results, radiology results. 09/19 13:32 Order name: CBC with Diff; Complete Time: 14:31 [facility] 09/19 13:32 Order name: CMP; Complete Time: 14:31 [facility] 09/19 13:32 Order name: Lipase; Complete Time: 14:31 [facility] 09/19 13:32 Order name: Urinalysis w/ reflexes; Complete Time: 15:00 [facility] 09/19 13:32 Order name: CT Abd/Pelvis - IV Contrast Only; Complete Time: 15:00 [facility] 09/19 13:32 Order name: IV Saline Lock; Complete Time: 13:46 [facility] 09/19 13:32 Order name: Labs collected and sent; Complete Time: 13:46 [facility] Administered Medications: 14:50 Not Given (Patient Refused): ondansetron 4 mg IVP once; over 2 minutes jl7 14:50 Not Given (Patient Refused): ondansetron 4 mg IVP once; over 2 minutes jl7 14:50 Not Given (Patient Refused): [id number] mg IVP once jl7 14:54 Drug: morphine IVP or IV 4 mg IVP once over 4 mins Route: IVP; Infused Over: 4 mins; jl7 Site: left hand; 15:15 Follow up: Response: No adverse reaction; Pain is decreased 7 15:05 Not Given (Duplicate Order): [id number] mg 100 ml IVPB at 200 ml/hr once over 30 brayan mins 15:08 Not Given (Patient Refused): [id number] mg IVP once; dilute with 10 mL 0.9% NaCl; jl7 give over 2 minutes 15:08 Drug: NS 0.9% IV 1000 ml IV at 1 bolus Per protocol; to be given as a bolus over 60 jl7 minutes Route: IV; Rate: 1 bolus; Site: left hand; 16:30 Follow up: IV Status: Completed infusion jl7 15:13 Not Given (Duplicate Order): [id number] mg 200 ml IVPB once over 60 mins [facility] 15:21 Drug: NS 0.9% IV 1000 ml IV at 1000 ml once; to be given as a bolus over 60 minutes jl7 Route: IV; Rate: 1000 ml; Site: left hand; 16:30 Follow up: IV Status: Completed infusion jl7 15:21 Drug: Flomax PO 0.4 mg PO once Route: PO; 16:37 Follow up: Response: No adverse reaction 15:21 Drug: Ciprofloxacin PO 500 mg PO once Route: PO; 15:30 Follow up: Response: No adverse reaction 15:25 Not Given (Physician Discretion): rocephin2 grams IV at per protocol once; Given slow jl7 IV push per pharmarcy instructions 15:25 Not Given (Patient Refused): [id number] mg IVP once 15:26 Drug: Rocephin IV 1 grams IV at calculated rate once; Given slow IV push per pharmacy jl7 instructions Route: IV; Rate: calculated rate; Site: left hand; 15:45 Follow up: Response: No adverse reaction; IV Status: Completed infusion Disposition Summary: 09/19/24 15:04 Discharge Ordered Notes: Location: Home brayan Problem: new brayan Symptoms: have improved brayan Condition: Stable brayan Diagnosis - Hydronephrosis with renal and ureteral calculous obstruction brayan - Other cholelithiasis without obstruction brayan Followup: brayan - With: Private Physician - When: 2 - 3 days - Reason: Recheck today's complaints, Continuance of care, Re-evaluation by your physician Followup: brayan - With: Tahir Hunt MD - When: 2 - 3 days - Reason: Recheck today's complaints, Re-evaluation by your physician Discharge Instructions: - Discharge Summary Sheet brayan - Kidney Stones brayan - Cholelithiasis brayan - Kidney Stones, [id number] brayan - Cholelithiasis, [id number] brayan - Hydronephrosis brayan - Dietary Guidelines to Help Prevent Kidney Stones brayan Forms: - Medication Reconciliation Form brayan - Antibiotic Education brayan - Prescription Opioid Use brayan - Patient Portal Instructions brayan - Leadership Thank You Letter brayan Prescriptions: - Flomax 0.4 mg Oral capsule - take 1 capsule ORAL route daily; 30 capsule; Refills: 0, Product Selection brayan Permitted - ketorolac 10 mg Oral tablet - take 1 tablet ORAL route every 6 hours for 3 days as needed for pain; 12 brayan tablet; Refills: 0, Product Selection Permitted - ondansetron 4 mg Oral Tablet,disintegrating - take 1 tablet ORAL route 4 times per day prn nv; 20 tablet; Refills: 0, Product brayan Selection Permitted - Cipro 500 mg Oral Tablet - take 1 tablet ORAL route every 12 hours for 7 days; 14 tablet; Refills: 0, brayan Product Selection Permitted Signatures: Dispatcher [employer] Bharat Tamez MD MD cha Hall, Patricia RN RN Jaron Sebastian RN RN jl7
[2024-09-19] MEDS ORDERED: CIPROFLOXACIN HCL 500 MG TAB ONE (15:12)
[2024-09-19] MEDS ORDERED: TAMSULOSIN 0.4 MG SR CAP ONE (15:20)
[2024-09-19 16:59] VITALS: TEMP 97.9; O2SAT 100
[2024-09-19 17:00] VITALS: BP 151/96
== END 2024-09-19 16:36 | disposition home or self-care (01) ==
LOC: ER 13:27
DX: N13.2 Hydronephrosis with renal and ureteral calculous obstruction (principal); K80.80 Other cholelithiasis without obstruction
CPT/HCPCS: 96365; 96361; 85025; 81001; 36415; 83690; 80053; 74177; 96375; 99284; Q9967; J7030 ×2; J0696; J0744; J2405; J2550

== ENCOUNTER 2024-10-07 15:47 | Emergency (ER) | payer MEDICAID ==
--- OUTSIDE RECORDS SUMMARY | 2024-10-07 15:52 | XMS REPORT | Continuity of Care Document ---
Author Name Unknown Address [address] [facility] [address] [place] [address] [facility] [place] Address [address] [place] [address] Care Team Providers Care Adoption Counselor Name Role Phone Simon Mae Primary Care Physician [phone] ROSALBA BARFIELD Attending Clinician Unavailable LAB90 Attending Clinician Unavailable MD SUKI Attending Clinician Unavailab aure RUTHERFORD, SON Attending Clinician Unavailable LINA CHOWDHURY Attending Clinician Unavailable SOLA COLES Attending Clinician Unavailable SWEETIE EAGLE Attending Clinician Unavailable SWEETIE EAGLE Attending Clinician Unavailable Sweetie Eagle DO Attending Clinician [phone] MURRAY MOORE Attending Clinician UnavailMurray Koch Attending Clinician + [phone] CLAUDIA BOOTH Attending Clinician Unavailable Flor Arboleda Attending Clinician + [phone] Unknown, Attending Attending Clinician Unavailab FLOR Prajapati Attending Clinician UnavailErinn Shafer MD Attending Clinician [phone] MAYURI EPPERSON Attending Clinician Unavailable Mayuri Epperson MD Attending Clinician [phone] AYALA CORADO Attending Clinician Unavailable Ayala Patel Attending Clinician +[phone] Alex Perez Attending Clinician +[phone] ALEX MEJIA Attending Clinician Unavailable CARYN HARDEN Attending Clinician Unavailable Dereck JAIMES, Caryn Attending Clinician [phone] Doctor Unassigned, [place] Attending Clinician U navailable JALYN ONEILL Attending Clinician Unavailable [facility] Attending Clinician Unavailable Jeff HEALTHCARE MARKET CONSULTANT, Jalyn Attending Clinician [phone] Coleman HEALTHCARE MARKET CONSULTANT, Ángel B Attending Clinician +- [phone] ÁNGEL MCLAUGHLIN B Attending Clinician Unavailable Elizabet Pena Attending Clinician [phone] ELIZABET TRAMMELL Attending Clinician Unavailable Lab, Danny - [facility] Attending Clinician Unavailable ERINN MATTHEWS Attending Clinician Unavailable EDGARDO Attending Clinician Unavailable Provider, [facility] Attending Clinician Unavailable Provider, [facility] Attending Clinician Un available ROWAN SADLER Attending Clinician Unavailable Isaac Zavala Attending Clinician [phone] ALISSA OWENS Attending Clinician UnavailAlissa Lee MD Attending Clinician + [phone] Nurse, Adc Pob Immunization Attending Clinician Unavailable Norris Almeida DO Attending Clinician [phone] NORRIS ALMEIDA Attending Clinician Unavail able 2, [facility] Attending Clinician Unavailable Terry Rangel MD Attending Clinician [phone] ISAAC CONTI Attending Clinician UnavailFroilan Muñoz MD Attending Clinician [phone] IbludaunDeepak Dela Cruz Attending Clinician +[phone] ELIZABET TRAMMELL Admitting Clinician Unavailable EDGARDO Admitting Clinician Unavailable Payers Payer Name Policy Type Policy Number Effective Date Expirati on Date Source [facility] [id number] 2024 00:00:00 MEDICARE PART A \\T\\ B [id number] 2003 00:00:00 [facility] DUAL COMP HMO D SNP [id number] 2022 00:00:00 2024 00:00:00 [employer] MEDICARE ADVANTAGEUHC MEDICARE COMPLETE [id number] 06/2020-PresentMed icare Adv PPO [id number] 2021 00:00:00 [facility] [id number] 2019 00:00:00 Problems Condition Name Condition Details Condition Category Status Onset Date Resolution Date Last Treatment Date Treating Clinician Comments Source Type 2 diabetes mellitus without complicati on, without long-term current use of insulin (multi HCC) Type 2 diabetes mellitus without complicati on, without long-term current use of insulin (multi HCC) Disease Active 4-12 00:00: 00 Michelle tse Bipolar disorder, unspecifie d (multi HCC) Bipolar disorder, unspecifie d (multi HCC) Disease Active 09-14 00:00: 00 Michelle tse Obesity (BMI 30.0-34.9) Obesity (BMI 30.0-34.9) Disease Active 1- 00:00: 00 Michelle tse Abnormal liver ultrasound Abnormal liver ultrasound Disease Active 3- 00:00: 00 [facility] Gallstones Gallstones Disease Active 09-18 00:00: 00 [facility] Mixed hyperlipid emia Mixed hyperlipid emia Disease Active 1- 00:00: 00 Michelle tse Elevated hemoglobin Elevated hemoglobin Disease Active - 00:00: 00 [facility] Elevated AST (SGOT) Elevated AST (SGOT) Disease Active 3- 00:00: 00 [facility] Elevated bilirubin Elevated bilirubin Disease Active 3- 00:00: 00 [facility] Abnormal LFTs Abnormal LFTs Disease Active -16 00:00: 00 [facility] Obesity (BMI 30-39.9) Obesity (BMI 30-39.9) Disease Active - 00:00: 00 [facility] Dermatitis Dermatitis Disease Active - 00:00: 00 [facility] Essential hypertensi on, benign Essential hypertensi on, benign Disease Active 1-04 00:00: 00 [facility] Primary hypertensi on Primary hypertensi on Disease Active 1- 00:00: 00 Michelle Rojo - Externa carmencita Valvular heart disease Valvular heart disease Disease Active [facility] Erythrocyt osis Erythrocyt osis Disease Active [facility] Dyslipidem ia Dyslipidem ia Disease Active [facility] Prediabete s Prediabete s Disease Active [facility] Elevated LFTs Elevated LFTs Disease Resolve d 2-20 00:00: 00 2020-02-26 00:00:00 2020-02-26 21:40:02 [facility] Nausea & vomiting Nausea & vomiting Disease Resolve d 2-07 00:00: 00 2020-02-26 00:00:00 2020-02-26 21:39:56 [facility] Allergies, Adverse Reactions, Alerts Allergy Name Allergy Type Status Severity Reaction(s) Onset Date Inactive Date Treating Clinician Comments Source Gnp Allergy Propensi ty to adverse reaction s Active - 00:00: 00 Michelle Rojo - Externa l Lisinopr il Propensi ty to adverse reaction s Active 06-30 00:00: 00 Michelle Rojo - Externa l Sulfa Drugs Propensi ty to adverse reaction s Active 06-30 00:00: 00 Michelle Rojo - Externa l lisinopr il Propensi ty to adverse reaction to drug Active 8-29 00:00: 00 Angel Lynch SULFAMET HOXAZOLE -TRIMETH OPRIM DRUG Active Swelling 6- 00:00: 00 [facility] Sulfamet hoxazole W-Trimet hoprim Propensi ty to adverse reaction s Active Swelling 12-03 00:00: 00 Michelle Rojo - Externa l Sulfa Drugs (Not Checked) Propensi ty to adverse reaction to drug Active 6- 00:00: 00 Angel Lynch Benadryl - Injectio n Propensi ty to adverse reaction to drug Active 11-28 00:00: 00 Angel Lynch Codeine Propensi ty to adverse reaction s Active 11-28 00:00: 00 Michelle Rojo - Homara l Diphenhy dramine Propensi ty to adverse reaction s Active 11-19 00:00: 00 Other Reaction( s): Unknown Michelle Rojo - Homara l Hydrocod one Propensi ty to adverse reaction s Active Itching 07-23 00:00: 00 [facility] Sulfa (Sulfona mide Antibiot ics) Propensi ty to adverse reaction s Active Rash 07-23 00:00: 00 [facility] HYDROCOD ONE DRUG INGREDI Active ITCHING 2 00:00: 00 [facility] SULFA (SULFONA MIDE ANTIBIOT ICS) Drug Class Active Rash 2 00:00: 00 [facility] HYDROCOD ONE-ACET AMINOPHE N DRUG Active ITCHING 2 00:00: 00 [facility] Hydrocod one-Acet aminophe n Propensi ty to adverse reaction s Active Itching 07-23 00:00: 00 Michelle Rojo - Homara carmencita DIPHENHY DRAMINE HCL DRUG INGREDI Active Swelling 06-25 00:00: 00 [facility] Diphenhy dramine Propensi ty to adverse reaction s Active Swelling 06-25 00:00: 00 Michelle Rojo - Homara l Lisinopr il Propensi ty to adverse reaction s Active Other - See comments 2016-06 00:00: 00 [facility] LISINOPR IL DRUG INGREDI Active Other-Cmnt 2016-06 00:00: 00 [facility] Trimetho prim Propensi ty to adverse reaction s Active 2011-06 00:00: 00 Other Reaction( s): Hives/Chadwick h Michelle Rojo - Externa l Clindamy robert Propensi ty to adverse reaction s Active 2011-06 00:00: 00 Other Reaction( s): Hives/Chadwick h Michelle Cranefelisanai - Externa l Lisinopr il Propensi ty to adverse reaction s Active 2011-06 00:00: 00 Other Reaction( s): Anaphylax is, Other - See comments Michelle Rojo - Externa l Sulfa Drugs Propensi ty to adverse reaction s Active Rash 2011-06 00:00: 00 Other Reaction( s): Hives/Chadwick h Michelle felisaold - Externa l Social History Social Habit Start Date Stop Date Quantity Comments Source Sexual orientation Jesús blount Sefelisanai - External Gender identity [facility] History of Social function 2024-10-05 00:00:00 2024-10-05 00:00:00 Michelle Cranefelisanai - External Sex 2024-04-06 05:21:10 2024-04-06 05:21:10 Male (finding) Michelle felisanai - External Alcoholic beverage intake 2024-03-23 00:00:00 2024-03-23 00:00:00 Ex-drinker (finding) [facility] Alcohol intake 2023-06-12 00:00:00 2023-06-12 00:00:00 Ex-drinker (finding) [facility] Exposure to SARS-CoV-2 (event) 2022-10-19 00:00:00 2022-10-29 13:32:00 Not sure [facility] Tobacco use and exposure 2022-05-14 00:00:00 2022-05-14 00:00:00 Smokeless tobacco non-user [facility] Sex assigned at 1980 00:00:00 1980 00:00:00 Michelle felisanai - External Smoking Status Start Date Stop Date Source Tobacco smoking consumption unknown Michelle Roanai - External Never smoked tobacco Michelle felisanai - External Medications Ordered Medication Name Filled Medication Name Start Date Stop Date Current Medication? Ordering Clinician Indication Dosage Frequency Signature (SIG) Comments Components Source Tirzepatide (Mounjaro) 2.5 MG/0.5ML subcutaneou s Solution Auto-inject or 10-05 00:00: 00 Yes [id number] 2.5mg Q1W Inject 2.5 mg into the skin once a week. Michelle tse Metformin HCl 500 MG oral Tablet 4-12 00:00: 00 Yes [id number] 500mg Take 1 tablet (500 mg total) by mouth in the morning and 1 tablet (500 mg total) in the evening. Take with meals. Michelle tse Ketoconazol e 2 % apply externally Cream 09-15 00:00: 00 Yes [id number] APPLY 1 G OF CREAM TOPICALLY TO AFFECTED AREA TWICE DAILY. Michelle tse Ketoconazol e 2 % apply externally Cream 09-14 00:00: 00 Yes [id number] Apply to rash twice a day. Michelle tse Topiramate 25 MG oral Tablet 09-14 00:00: 00 Yes [id number] 25mg Q.5D Take 1 tablet (25 mg total) by mouth 2 times daily. Michelle tse Selenium Sulfide 2.5 % apply externally Lotion 09-14 00:00: 00 Yes [id number] Apply 15 min before shower and then rinse . May use daily or PRN. Michelle tse Albuterol HFA 108 (90 Base) MCG/ACT IN AERS 07-14 13:56: 20 Yes 2{puff} Q.25D Inhale 2 puffs into the lungs every 6 hours as needed for wheezing. Michelle tse Losartan Potassium (COZAAR) 50 MG oral Tablet 07-14 00:00: 00 Yes [id number] 50mg QD Take 1 tablet (50 mg total) by mouth daily. Michelle tse Topiramate 25 MG oral Tablet 07-14 00:00: 00 09-14 00:00 :00 No [id number] 25mg Q.5D Take 1 tablet (25 mg total) by mouth 2 times daily. Michelle tse Albuterol HFA 108 (90 Base) MCG/ACT IN AERS 06-30 13:57: 20 Yes 2{puff} Q.25D Inhale 2 puffs into the lungs every 6 hours as needed for wheezing. Michelle tse Amoxicillin 875 MG oral Tablet 06-30 00:00: 00 07-14 00:00 :00 No [id number] 875mg Q.5D Take 1 tablet (875 mg total) by mouth 2 times daily. Michelle tse methylPREDN ISolone 4 MG oral Tablet Therapy Pack 06-30 00:00: 00 07-14 00:00 :00 No [id number] 1{elidia} Take 1 elidia by mouth See Admin Instructio ns Use as directed. Michelle tse Dextrometho rphan-guaiF ENesin (Mucinex DM) 30-600 MG oral Tablet 12 Hour Sustained Release 06-30 00:00: 00 07-14 00:00 :00 No [id number] 1{tbl} Take 1 tablet by mouth every 12 hours. Michelle tse losartan 50 mg tablet 2023-06 00:00: 00 Yes 1mg Angel Lynch triamcinolo ne acetonide 0.1 % topical ointment 02-17 00:00: 00 Yes 1% Angel Lynch losartan 50 mg tablet 01-25 00:00: 00 Yes 1mg Angel Lynch azithromyci n 250 mg tablet 01-16 00:00: 00 Yes [id number] 2 tabs today; 1 tab daily x 4 days disp 6 tabs [facility] predniSONE 10 mg tablet 01-16 00:00: 00 01-22 04:59 :00 No [id number] 20mg Take 2 tablets by mouth in the morning for 5 days. [facility] albuterol 90 mcg/actuati on inhaler 01-09 00:00: 00 01-20 04:59 :00 No [id number] 2{puff} Inhale 2 Puffs every 6 (six) hours as needed for Wheezing or Shortness of Breath for up to 10 days. [facility] benzonatate 200 mg capsule 01-09 00:00: 00 01-20 04:59 :00 No [id number] 200mg Take 1 capsule by mouth 3 (three) times daily as needed for Cough for up to 10 days. [facility] azithromyci n 250 mg tablet 01-09 00:00: 00 01-16 00:00 :00 No [id number] 2 tabs today; 1 tab daily for 4 days [facility] predniSONE 20 mg tablet 01-09 00:00: 01-15 04:59 :00 No [id number] 20mg Take 1 tablet by mouth in the morning for 5 days. [facility] losartan 50 mg tablet 12-21 00:00: 00 Yes 1mg Angel Lynch Losartan Potassium (COZAAR) 50 MG oral Tablet 12-21 00:00: 00 07-14 00:00 :00 No 50mg 1 tablet (50 mg total). Michelle tse amoxicillin 875 mg-brid[facility]erson clavulanate 125 mg tablet 12-04 00:00: 00 Yes mg Angel Lynch ciprofloxac in 0.3 %-dexametha sone 0.1 % ear drops,suspe nsion 12-04 00:00: 00 Yes % Angel Merari Lynch Ciprofloxac in-dexAMETH asone (Ciprodex) 0.3-0.1 % otic Suspension 12-04 00:00: 00 07-14 00:00 :00 No Michelle Beasley l amoxicillin -clavulanat e 875-125 mg per tablet 12-03 00:00: 00 12-14 04:59 :00 No [id number] 1{tbl} Take 1 tablet by mouth in the morning and 1 tablet in the evening. Do all this for 10 days. [facility] ciprofloxac in-dexameth asone 0.3-0.1 % otic drops 12-03 00:00: 00 12-11 04:59 :00 No [id number] 4[drp] Place 4 Drops in left ear in the morning and 4 Drops in the evening. Do all this for 7 days. [facility] Cipro HC 0.2 %-1 % ear drops,suspe nsion 11-25 00:00: 00 Yes 1% Angel Lynch Azelastine HCl 0.1 % nasal Solution 11-09 00:00: 00 Yes 1{spray } Q.5D 1 spray by nasal route 2 times daily. Michelle tse doxycycline hyclate 100 mg tablet 11-09 00:00: 00 Yes mg Angel Lynch azelastine 137 mcg (0.1 %) nasal spray 11-09 00:00: 00 Yes (0.1 %) Angel Lynch FLUTICASONE PROPIONATE, NASAL, 50 MCG/ACT nasal Suspension 11-09 00:00: 00 07-14 00:00 :00 No Michelle tse benzonatate 100 mg capsule 11-09 00:00: 00 01-09 00:00 :00 No [id number] 200mg Take 2 capsules by mouth every 8 (eight) hours as needed for Cough. [facility] doxycycline hyclate 100 mg tablet 11-09 00:00: 00 11-20 04:59 :00 No [id number] 100mg Take 1 tablet by mouth in the morning and 1 tablet in the evening. Do all this for 10 days. [facility] losartan 50 mg tablet - 00:00: 00 Yes [id number] 50mg Take 1 tablet by mouth every morning. MUST BE SEEN FOR FURTHER REFILLS [facility] azithromyci n (ZITHROMAX Z-ELIDIA) 250 mg tablet 2022-06 00:00: 00 01-09 00:00 :00 No [id number] Z pack as directed. [facility] albuterol 90 mcg/actuati on inhaler 2022-06 00:00: 00 06-23 05:59 :00 No [id number] 2{puff} Inhale 2 Puffs every 6 (six) hours as needed for Wheezing for up to 10 days. [facility] benzonatate 200 mg capsule 2022-06 2-22 00:00: 00 06-23 05:59 :00 No [id number] 200mg Take 1 capsule by mouth 3 (three) times daily as needed for Cough for up to 10 days. [facility] dexamethaso ne (DECADRON) injection 10 mg 01-10 21:00: 00 01-10 21:09 :00 No [id number] 10mg [facility] predniSONE 20 mg tablet 01-10 00:00: 00 01-09 00:00 :00 No [id number] Take 2 tablets daily for 2 days, then one tablet daily for 3 days, then half tablet daily for 3 days, then stop. [facility] triamcinolo ne acetonide 0.1 % ointment 01-10 00:00: 00 01-18 04:59 :00 No [id number] Apply to area(s) 2 (two) times daily for 7 days. [facility] albuterol 90 mcg/actuati on inhaler 10-19 00:00: 00 01-09 00:00 :00 No [id number] 2{puff} Inhale 2 Puffs every 6 (six) hours as needed for Wheezing or Shortness of Breath. [facility] dextrometho rphan-guaif enesin 10-100 mg/5 mL solution 10-19 00:00: 00 11-09 00:00 :00 No [id number] 10mL Take 10 mL by mouth every 6 (six) hours as needed for Cough. [facility] benzonatate 200 mg capsule 10-04 00:00: 00 10-15 04:59 :00 No [id number] 200mg Take 1 capsule by mouth 3 (three) times daily as needed for Cough for up to 10 days. [facility] albuterol 90 mcg/actuati on inhaler 10-04 00:00: 00 10-15 04:59 :00 No [id number] 2{puff} Inhale 2 Puffs every 6 (six) hours as needed for Wheezing for up to 10 days. [facility] predniSONE 20 mg tablet 4-15 00:00: 00 10-10 04:59 :00 No [id number] 20mg Take 1 tablet by mouth in the morning for 5 days. [facility] LOSARTAN POTASSIUM 50 MG TABS 08-07 00:00: 00 Yes Angel Lynch losartan 50 mg tablet -16 00:00: 00 09-01 00:00 :00 No [id number] 50mg Take 1 tablet by mouth every morning. [facility] losartan 50 mg tablet 07-14 00:00: 00 08-07 00:00 :00 No [id number] TAKE ONE TABLET BY MOUTH EVERY MORNING [facility] LOSARTAN 50 mg tablet 2021-06 00:00: 00 Yes [id number] TAKE ONE TABLET BY MOUTH EVERY MORNING [facility] albuterol 90 mcg/actuati on inhaler 2021-06 00:00: 00 05-25 05:59 :00 No [id number] 2{puff} Inhale 2 Puffs every 6 (six) hours as needed for Wheezing or Shortness of Breath for up to 10 days. [facility] benzonatate 200 mg capsule 2021-06 00:00: 00 05-25 05:59 :00 No [id number] 200mg Take 1 capsule by mouth 3 (three) times daily as needed for Cough for up to 10 days. [facility] predniSONE 20 mg tablet 2021-06 00:00: 00 05-20 05:59 :00 No [id number] 40mg Take 2 tablets by mouth in the morning for 5 days. [facility] losartan 50 mg tablet 2021-06 00:00: 00 06-13 00:00 :00 No [id number] 50mg Take 1 tablet by mouth in the morning. Follow-up for refills and fasting labs. [facility] oseltamivir 75 mg capsule 2022-1 1-05 00:00: 00 08-07 00:00 :00 No [facility] Dose Unknown - 00:00: 00 Yes Angel Lynch Zoloft 50 mg tablet - 00:00: 00 Yes 1mg Angel Lynch &lt - 00:00: 00 Yes Angel Lynch SERTRALINE HCL 50 MG TABS 11-28 00:00: 00 Yes Angel Lynch LOSARTAN POTASSIUM 50 MG TABS 6- 00:00: 00 Yes Angel Lynch triamcinolo ne acetonide 0.1 % cream - 00:00: 00 08-07 00:00 :00 No [id number] Apply to area(s) 2 (two) times daily. [facility] permethrin 5 % cream - 00:00: 00 11-08 04:59 :00 No [id number] Apply to area(s) once now for 1 dose. Apply jawline to soles of feet. Leave on 8-14 hours. Repeat in 14 days if needed. [facility] DICYCLOMINE HYDROCHLORI DE 10 MG 4-03 00:00: 00 Yes Angel Lynch AZITHROMYCI N 250 MG TABS 4-03 00:00: 00 Yes Angel Lynch dicyclomine 10 mg capsule 4-03 00:00: 00 11-07 00:00 :00 No [id number] 10mg Take 1 capsule by mouth 3 (three) times daily as needed for Abdominal pain. [facility] losartan 50 mg tablet 3-03 00:00: 00 05-13 00:00 :00 No [id number] 50mg Take 1 tablet by mouth daily. [facility] Immunizations Ordered Immunization Name Filled Immunization Name Date Status Comments Source SARS-COV-2 COVID-19 PFIZER VACCINE 2024-03-16 18:03:00 Completed [facility] SARS-COV-2 COVID-19 PFIZER VACCINE 2024-01-17 20:52:00 Completed [facility] SARS-COV-2 COVID-19 PFIZER VACCINE 2023-12-09 07:08:00 Completed [facility] SARS-COV-2 COVID-19 PFIZER VACCINE 2023-12-04 23:03:00 Completed [facility] SARS-COV-2 COVID-19 PFIZER VACCINE 2023-11-30 17:00:00 Completed [facility] SARS-COV-2 COVID-19 PFIZER VACCINE 2023-11-10 11:00:00 Completed [facility] SARS-COV-2 COVID-19 PFIZER VACCINE 2023-09-02 00:00:00 Completed [facility] SARS-COV-2 COVID-19 PFIZER VACCINE 2023-06-12 13:20:00 Completed [facility] SARS-COV-2 COVID-19 PFIZER VACCINE 2023-06-03 00:00:00 Completed [facility] SARS-COV-2 COVID-19 PFIZER VACCINE 2022-10-11 00:00:00 Completed [facility] SARS-COV-2 COVID-19 PFIZER VACCINE 2022-09-20 00:00:00 Completed [facility] SARS-COV-2 COVID-19 PFIZER VACCINE 2021-09-04 00:00:00 Completed [facility] SARS-COV-2 COVID-19 PFIZER VACCINE 2021-02-19 00:00:00 Completed [facility] SARS-COV-2 COVID-19 PFIZER VACCINE 2021-02-19 00:00:00 Completed [facility] SARS-COV-2 COVID-19 PFIZER VACCINE 2021-02-19 00:00:00 Completed [facility] SARS-COV-2 COVID-19 PFIZER VACCINE 2021-02-19 00:00:00 Completed [facility] SARS-COV-2 COVID-19 PFIZER VACCINE 2021-02-19 00:00:00 Completed [facility] SARS-COV-2 COVID-19 PFIZER VACCINE 2021-02-19 00:00:00 Completed [facility] SARS-COV-2 COVID-19 PFIZER VACCINE 2021-02-19 00:00:00 Completed [facility] SARS-COV-2 COVID-19 PFIZER VACCINE 2021-02-19 00:00:00 Completed [facility] SARS-COV-2 COVID-19 PFIZER VACCINE 2021-02-19 00:00:00 Completed [facility] SARS-COV-2 COVID-19 PFIZER VACCINE 2021-02-19 00:00:00 Completed [facility] SARS-COV-2 COVID-19 PFIZER VACCINE 2021-02-19 00:00:00 Completed [facility] SARS-COV-2 COVID-19 PFIZER VACCINE 2021-02-19 00:00:00 Completed [facility] SARS-COV-2 COVID-19 PFIZER VACCINE 2021-02-19 00:00:00 Completed [facility] SARS-COV-2 COVID-19 PFIZER VACCINE 2021-02-19 00:00:00 Completed [facility] SARS-COV-2 COVID-19 PFIZER VACCINE 2021-02-19 00:00:00 Completed [facility] SARS-COV-2 COVID-19 PFIZER VACCINE 2021-02-19 00:00:00 Completed [facility] SARS-COV-2 COVID-19 PFIZER VACCINE 2021-02-19 00:00:00 Completed [facility] SARS-COV-2 COVID-19 PFIZER VACCINE 2021-02-19 00:00:00 Completed [facility] SARS-COV-2 COVID-19 PFIZER VACCINE 2021-02-19 00:00:00 Completed [facility] SARS-COV-2 COVID-19 PFIZER VACCINE 2021-02-19 00:00:00 Completed [facility] SARS-COV-2 COVID-19 PFIZER VACCINE 2021-02-19 00:00:00 Completed [facility] SARS-COV-2 COVID-19 PFIZER VACCINE 2021-02-19 00:00:00 Completed [facility] SARS-COV-2 COVID-19 PFIZER VACCINE 2021-02-19 00:00:00 Completed [facility] SARS-COV-2 COVID-19 PFIZER VACCINE 2021-02-19 00:00:00 Completed [facility] SARS-COV-2 COVID-19 PFIZER VACCINE 2021-02-19 00:00:00 Completed [facility] SARS-COV-2 COVID-19 PFIZER VACCINE 2021-02-19 00:00:00 Completed [facility] SARS-COV-2 COVID-19 PFIZER VACCINE 2021-02-19 00:00:00 Completed [facility] SARS-COV-2 COVID-19 PFIZER VACCINE 2021-02-19 00:00:00 Completed [facility] SARS-COV-2 COVID-19 PFIZER VACCINE 2021-02-19 00:00:00 Completed [facility] SARS-COV-2 COVID-19 PFIZER VACCINE 2021-02-19 00:00:00 Completed [facility] SARS-COV-2 COVID-19 PFIZER VACCINE 2021-02-19 00:00:00 Completed [facility] SARS-COV-2 COVID-19 PFIZER VACCINE 2021-02-19 00:00:00 Completed [facility] SARS-COV-2 COVID-19 PFIZER VACCINE 2021-01-29 00:00:00 Completed [facility] SARS-COV-2 COVID-19 PFIZER VACCINE 2021-01-29 00:00:00 Completed [facility] SARS-COV-2 COVID-19 PFIZER VACCINE 2021-01-29 00:00:00 Completed [facility] SARS-COV-2 COVID-19 PFIZER VACCINE 2021-01-29 00:00:00 Completed [facility] SARS-COV-2 COVID-19 PFIZER VACCINE 2021-01-29 00:00:00 Completed [facility] SARS-COV-2 COVID-19 PFIZER VACCINE 2021-01-29 00:00:00 Completed [facility] SARS-COV-2 COVID-19 PFIZER VACCINE 2021-01-29 00:00:00 Completed [facility] SARS-COV-2 COVID-19 PFIZER VACCINE 2021-01-29 00:00:00 Completed [facility] SARS-COV-2 COVID-19 PFIZER VACCINE 2021-01-29 00:00:00 Completed [facility] SARS-COV-2 COVID-19 PFIZER VACCINE 2021-01-29 00:00:00 Completed [facility] SARS-COV-2 COVID-19 PFIZER VACCINE 2021-01-29 00:00:00 Completed [facility] SARS-COV-2 COVID-19 PFIZER VACCINE 2021-01-29 00:00:00 Completed [facility] SARS-COV-2 COVID-19 PFIZER VACCINE 2021-01-29 00:00:00 Completed [facility] SARS-COV-2 COVID-19 PFIZER VACCINE 2021-01-29 00:00:00 Completed [facility] SARS-COV-2 COVID-19 PFIZER VACCINE 2021-01-29 00:00:00 Completed [facility] SARS-COV-2 COVID-19 PFIZER VACCINE 2021-01-29 00:00:00 Completed [facility] SARS-COV-2 COVID-19 PFIZER VACCINE 2021-01-29 00:00:00 Completed [facility] SARS-COV-2 COVID-19 PFIZER VACCINE 2021-01-29 00:00:00 Completed [facility] SARS-COV-2 COVID-19 PFIZER VACCINE 2021-01-29 00:00:00 Completed [facility] SARS-COV-2 COVID-19 PFIZER VACCINE 2021-01-29 00:00:00 Completed [facility] SARS-COV-2 COVID-19 PFIZER VACCINE 2021-01-29 00:00:00 Completed [facility] SARS-COV-2 COVID-19 PFIZER VACCINE 2021-01-29 00:00:00 Completed [facility] SARS-COV-2 COVID-19 PFIZER VACCINE 2021-01-29 00:00:00 Completed [facility] SARS-COV-2 COVID-19 PFIZER VACCINE 2021-01-29 00:00:00 Completed [facility] SARS-COV-2 COVID-19 PFIZER VACCINE 2021-01-29 00:00:00 Completed [facility] SARS-COV-2 COVID-19 PFIZER VACCINE 2021-01-29 00:00:00 Completed [facility] SARS-COV-2 COVID-19 PFIZER VACCINE 2021-01-29 00:00:00 Completed [facility] SARS-COV-2 COVID-19 PFIZER VACCINE 2021-01-29 00:00:00 Completed [facility] SARS-COV-2 COVID-19 PFIZER VACCINE 2021-01-29 00:00:00 Completed [facility] SARS-COV-2 COVID-19 PFIZER VACCINE 2021-01-29 00:00:00 Completed [facility] SARS-COV-2 COVID-19 PFIZER VACCINE 2021-01-29 00:00:00 Completed [facility] SARS-COV-2 COVID-19 PFIZER VACCINE 2021-01-29 00:00:00 Completed [facility] Vital Signs Vital Name Observation Time Observation Value Comments S ource Systolic blood pressure 2024-07-14 19:49:00 108 mm[Hg] Michelle Seybo ld - External Diastolic blood pressure 2024-07-14 19:49:00 72 mm[Hg] Michelle Seybo ld - External Heart rate 2024-07-14 19:49:00 87 /min Kelse y Seybold - External Body temperature 2024-07-14 19:49:00 36.78 Steph Michelle Seybold - External Respiratory rate 2024-07-14 19:49:00 15 /min Michelle Seybold - External Body height 2024-07-14 19:49:00 167.6 cm Meg ey Seybold - External Body weight 2024-07-14 19:49:00 92.08 kg Meg ey Seybold - External BMI 2024-07-14 19:49:00 32.77 kg/m2 Meg ey Seybold - External Oxygen saturation in Arterial blood by Pulse oximetry 2024-07-14 19:49:00 97 /min Michelle Seybo ld - External Systolic blood pressure 2024-06-30 19:39:00 122 mm[Hg] Michelle Seybo ld - External Diastolic blood pressure 2024-06-30 19:39:00 80 mm[Hg] Michelle Seybo ld - External Heart rate 2024-06-30 19:39:00 95 /min Kelse y Seybold - External Body temperature 2024-06-30 19:39:00 37.11 Steph Michelle Seybold - External Respiratory rate 2024-06-30 19:39:00 16 /min Michelle Seybold - External Body height 2024-06-30 19:39:00 167.6 cm Meg ey Seybold - External Body weight 2024-06-30 19:39:00 91.627 kg Meg ey Seybold - External BMI 2024-06-30 19:39:00 32.60 kg/m2 Meg Roanai - External Oxygen saturation in Arterial blood by Pulse oximetry 2024-06-30 19:39:00 96 /min Michelle spear - External Systolic blood pressure 2024-03-24 04:38:00 147 mm[Hg] [facility] Diastolic blood pressure 2024-03-24 04:38:00 99 mm[Hg] [facility] Heart rate 2024-03-24 04:38:00 95 /min [facility] Body temperature 2024-03-24 04:38:00 36.89 Steph [facility] Respiratory rate 2024-03-24 04:38:00 18 /min [facility] Body height 2024-03-24 04:38:00 170.2 cm [facility] Body weight 2024-03-24 04:38:00 92.08 kg [facility] BMI 2024-03-24 04:38:00 31.79 kg/m2 [facility] Oxygen saturation in Arterial blood by Pulse oximetry 2024-03-24 04:38:00 95 /min [facility] Systolic blood pressure 2024-03-16 22:59:00 148 mm[Hg] [facility] Diastolic blood pressure 2024-03-16 22:59:00 99 mm[Hg] [facility] Heart rate 2024-03-16 22:59:00 84 /min [facility] Body temperature 2024-03-16 22:59:00 36.39 Steph [facility] Respiratory rate 2024-03-16 22:59:00 18 /min [facility] Body weight 2024-03-16 22:59:00 91.128 kg [facility] BMI 2024-03-16 22:59:00 33.43 kg[facility]m2 [facility] O[facility] saturation in Arterial blood by Pulse oximetry 2024-03-16 22:59:00 98 /min [facility] Systolic blood pressure 2024-01-18 01:49:00 152 mm[Hg] [facility] Diastolic blood pressure 2024-01-18 01:49:00 108 mm[Hg] [facility] Heart rate 2024-01-18 01:49:00 91 /min [facility] Body temperature 2024-01-18 01:49:00 37 Steph [facility] Respiratory rate 2024-01-18 01:49:00 18 /min [facility] Body height 2024-01-18 01:49:00 165.1 cm Univ [facility] Body weight 2024-01-18 01:49:00 90.719 kg [facility] BMI 2024-01-18 01:49:00 33.28 kg/m2 [facility] Oxygen saturation in Arterial blood by Pulse oximetry 2024-01-18 01:49:00 97 /min [facility] Systolic blood pressure 2024-01-10 16:57:00 135 mm[Hg] [facility] Diastolic blood pressure 2024-01-10 16:57:00 94 mm[Hg] [facility] Heart rate 2024-01-10 16:56:00 90 /min [facility] Body temperature 2024-01-10 16:56:00 37.22 Steph [facility] Respiratory rate 2024-01-10 16:56:00 17 /min [facility] Body weight 2024-01-10 16:56:00 90.266 kg [facility] BMI 2024-01-10 16:56:00 33.12 kg/m2 [facility] Oxygen saturation in Arterial blood by Pulse oximetry 2024-01-10 16:56:00 95 /min [facility] BMI 2023-12-09 12:06:00 33.78 kg/m2 [facility] Oxygen saturation in Arterial blood by Pulse oximetry 2023-12-09 12:06:00 96 /min [facility] Systolic blood pressure 2023-12-09 12:06:00 122 mm[Hg] [facility] Diastolic blood pressure 2023-12-09 12:06:00 94 mm[Hg] [facility] Heart rate 2023-12-09 12:06:00 86 /min [facility] Body temperature 2023-12-09 12:06:00 37 Steph [facility] Respiratory rate 2023-12-09 12:06:00 14 /min [facility] Body height 2023-12-09 12:06:00 165.1 cm [facility] Body weight 2023-12-09 12:06:00 92.08 kg [facility] Systolic blood pressure 2023-12-05 03:59:00 123 mm[Hg] [facility] Diastolic blood pressure 2023-12-05 03:59:00 86 mm[Hg] [facility] Heart rate 2023-12-05 03:59:00 97 /min [facility] Body temperature 2023-12-05 03:59:00 36.72 Steph [facility] Respiratory rate 2023-12-05 03:59:00 17 /min [facility] Body height 2023-12-05 03:59:00 165.1 cm [facility] Body weight 2023-12-05 03:59:00 94.983 kg [facility] BMI 2023-12-05 03:59:00 34.85 kg/m2 [facility] Oxygen saturation in Arterial blood by Pulse oximetry 2023-12-05 03:59:00 97 /min [facility] Systolic blood pressure 2023-11-30 22:23:00 123 mm[Hg] [facility] Diastolic blood pressure 2023-11-30 22:23:00 83 mm[Hg] [facility] Heart rate 2023-11-30 22:23:00 96 /min [facility] Body temperature 2023-11-30 22:23:00 36.94 Steph [facility] Respiratory rate 2023-11-30 22:23:00 16 /min [facility] Body height 2023-11-30 22:23:00 162.6 cm [facility] Body weight 2023-11-30 22:23:00 92.352 kg [facility] BMI 2023-11-30 22:23:00 34.95 kg/m2 [facility] Oxygen saturation in Arterial blood by Pulse oximetry 2023-11-30 22:23:00 99 /min [facility] Systolic blood pressure 2023-11-10 16:19:00 125 mm[Hg] [facility] Diastolic blood pressure 2023-11-10 16:19:00 85 mm[Hg] [facility] Heart rate 2023-11-10 16:19:00 79 /min [facility] Body temperature 2023-11-10 16:19:00 36.72 Steph [facility] Respiratory rate 2023-11-10 16:19:00 16 /min [facility] Body weight 2023-11-10 16:19:00 93.895 kg [facility] BMI 2023-11-10 16:19:00 34.45 kg/m2 [facility] Oxygen saturation in Arterial blood by Pulse oximetry 2023-11-10 16:19:00 95 /min [facility] Systolic blood pressure 2023-06-12 19:36:00 136 mm[Hg] [facility] Diastolic blood pressure 2023-06-12 19:36:00 81 mm[Hg] [facility] Heart rate 2023-06-12 19:36:00 107 /min [facility] Body temperature 2023-06-12 19:36:00 36.78 Steph [facility] Respiratory rate 2023-06-12 19:36:00 18 /min [facility] Body height 2023-06-12 19:36:00 165.1 cm [facility] Body weight 2023-06-12 19:36:00 92.08 kg [facility] BMI 2023-06-12 19:36:00 33.78 kg/m2 [facility] Oxygen saturation in Arterial blood by Pulse oximetry 2023-06-12 19:36:00 96 /min [facility] Systolic blood pressure 2023-01-10 20:44:00 129 mm[Hg] [facility] Diastolic blood pressure 2023-01-10 20:44:00 78 mm[Hg] [facility] Heart rate 2023-01-10 20:44:00 108 /min [facility] Body temperature 2023-01-10 20:44:00 37.06 Steph [facility] Respiratory rate 2023-01-10 20:44:00 17 /min [facility] Body weight 2023-01-10 20:44:00 83.008 kg [facility] BMI 2023-01-10 20:44:00 30.45 kg/m2 [facility] Oxygen saturation in Arterial blood by Pulse oximetry 2023-01-10 20:44:00 97 /min [facility] Systolic blood pressure 2022-10-29 18:47:00 123 mm[Hg] [facility] Diastolic blood pressure 2022-10-29 18:47:00 82 mm[Hg] [facility] Heart rate 2022-10-29 18:47:00 82 /min [facility] Body temperature 2022-10-29 18:47:00 35.56 Steph [facility] Respiratory rate 2022-10-29 18:47:00 16 /min [facility] Body height 2022-10-29 18:47:00 165.1 cm [facility] Body weight 2022-10-29 18:47:00 83.462 kg [facility] BMI 2022-10-29 18:47:00 30.62 kg/m2 [facility] Oxygen saturation in Arterial blood by Pulse oximetry 2022-10-29 18:47:00 95 /min [facility] Systolic blood pressure 2022-10-19 14:20:00 133 mm[Hg] [facility] Diastolic blood pressure 2022-10-19 14:20:00 83 mm[Hg] [facility] Heart rate 2022-10-19 14:20:00 90 /min [facility] Body temperature 2022-10-19 14:20:00 36.89 Steph [facility] Respiratory rate 2022-10-19 14:20:00 20 /min [facility] Body height 2022-10-19 14:20:00 165.1 cm [facility] Body weight 2022-10-19 14:20:00 84.324 kg [facility] BMI 2022-10-19 14:20:00 30.94 kg/m2 [facility] Oxygen saturation in Arterial blood by Pulse oximetry 2022-10-19 14:20:00 95 /min [facility] Systolic blood pressure 2022-10-05 01:42:00 117 mm[Hg] [facility] Diastolic blood pressure 2022-10-05 01:42:00 80 mm[Hg] [facility] Heart rate 2022-10-05 01:42:00 100 /min [facility] Body temperature 2022-10-05 01:42:00 37.22 Steph [facility] Respiratory rate 2022-10-05 01:42:00 18 /min [facility] Body weight 2022-10-05 01:42:00 84.142 kg [facility] BMI 2022-10-05 01:42:00 30.87 kg/m2 [facility] Oxygen saturation in Arterial blood by Pulse oximetry 2022-10-05 01:42:00 98 /min [facility] Systolic blood pressure 2022-09-04 15:21:00 124 mm[Hg] [facility] Diastolic blood pressure 2022-09-04 15:21:00 80 mm[Hg] [facility] Heart rate 2022-09-04 15:21:00 79 /min [facility] Body temperature 2022-09-04 15:21:00 36.67 Steph [facility] Body height 2022-09-04 15:21:00 165.1 cm [facility] Body weight 2022-09-04 15:21:00 86.138 kg [facility] BMI 2022-09-04 15:21:00 31.60 kg/m2 [facility] Oxygen saturation in Arterial blood by Pulse oximetry 2022-09-04 15:21:00 97 /min [facility] Systolic blood pressure 2022-08-07 17:54:00 142 mm[Hg] [facility] Diastolic blood pressure 2022-08-07 17:54:00 98 mm[Hg] [facility] Heart rate 2022-08-07 17:53:00 105 /min [facility] Body height 2022-08-07 17:53:00 165.1 cm [facility] Body weight 2022-08-07 17:53:00 85.322 kg [facility] BMI 2022-08-07 17:53:00 31.30 kg/m2 [facility] Oxygen saturation in Arterial blood by Pulse oximetry 2022-08-07 17:53:00 94 /min [facility] Systolic blood pressure 2022-05-15 02:49:00 123 mm[Hg] [facility] Diastolic blood pressure 2022-05-15 02:49:00 82 mm[Hg] [facility] Heart rate 2022-05-15 02:49:00 85 /min [facility] Body temperature 2022-05-15 02:49:00 36.72 Steph [facility] Respiratory rate 2022-05-15 02:49:00 16 /min [facility] Body height 2022-05-15 02:49:00 165.1 cm [facility] Body weight 2022-05-15 02:49:00 82.101 kg [facility] BMI 2022-05-15 02:49:00 30.12 kg/m2 [facility] Oxygen saturation in Arterial blood by Pulse oximetry 2022-05-15 02:49:00 97 /min [facility] Systolic blood pressure 2021-11-25 18:30:00 106 mm[Hg] [facility] Diastolic blood pressure 2021-11-25 18:30:00 78 mm[Hg] [facility] Heart rate 2021-11-25 18:30:00 96 /min [facility] Body temperature 2021-11-25 18:30:00 36.72 Steph [facility] Respiratory rate 2021-11-25 18:30:00 18 /min [facility] Body height 2021-11-25 18:30:00 165.1 cm [facility] 2021-11-25 18:30:00 77.565 kg [facility] BMI 2021-11-25 18:30:00 28.46 kg/m2 [facility] Oxygen saturation in Arterial blood by Pulse oximetry 2021-11-25 18:30:00 100 /min [facility] Systolic blood pressure 2021-11-25 17:33:00 141 mm[Hg] [facility] Diastolic blood pressure 2021-11-25 17:33:00 83 mm[Hg] [facility] Heart rate 2021-11-25 17:33:00 77 /min [facility] Body temperature 2021-11-25 17:33:00 36.44 Steph [facility] Respiratory rate 2021-11-25 17:33:00 16 /min [facility] Body height 2021-11-25 17:33:00 162.6 cm [facility] Body weight 2021-11-25 17:33:00 78.926 kg [facility] BMI 2021-11-25 17:33:00 29.87 kg/m2 [facility] Oxygen saturation in Arterial blood by Pulse oximetry 2021-11-25 17:33:00 95 /min [facility] Systolic blood pressure 2021-11-07 18:49:00 128 mm[Hg] [facility] Diastolic blood pressure 2021-11-07 18:49:00 82 mm[Hg] [facility] Heart rate 2021-11-07 18:49:00 71 /min [facility] Body height 2021-11-07 18:49:00 167.6 cm [facility] Body weight 2021-11-07 18:49:00 78.472 kg [facility] BMI 2021-11-07 18:49:00 27.92 kg/m2 [facility] Oxygen saturation in Arterial blood by Pulse oximetry 2021-11-07 18:49:00 97 /min [facility] BP Systolic 2024-05-17 14:29:00 152 mm[Hg] Step hen F Syed BP Diastolic 2024-05-17 14:29:00 112 mm[Hg] Dwight phen F Syed Weight Measured 2024-05-17 14:29:00 202.60 pounds Angel F Syed Height Measured 2024-05-17 14:29:00 65.00 inches Angel F Syed Body Temperature 2024-05-17 14:29:00 98.10 degrees Angel [...] phen F Syed Weight Measured 2023-12-09 16:23:00 Angel F Syed Height Measured 2023-12-09 16:23:00 65.00 inches Angel F Syed Body Temperature 2023-12-09 16:23:00 98.20 degrees Angel F Syed Heart Rate 2023-12-09 16:23:00 90.00 /min Viviana en F Syed Respiratory Rate 2023-12-09 16:23:00 18.00 /min Angel F Syed Weight Measured 2023-12-02 15:55:00 204.60 pounds Angel F Syed Height Measured 2023-12-02 15:55:00 65.00 inches Angel F Syed Body Temperature 2023-12-02 15:55:00 Angel F Syed Heart Rate 2023-12-02 15:55:00 82.00 /min Viviana en F Syed Respiratory Rate 2023-12-02 15:55:00 Angel F Syed BP Systolic 2023-12-02 15:55:00 129 mm[Hg] Ignacio Lynch BP Diastolic 2023-12-02 15:55:00 90 mm[Hg] Dwight phen Merari Lynch BP Systolic 2023-11-26 13:58:00 138 mm[Hg] Ignacio Lynch BP Diastolic 2023-11-26 13:58:00 88 mm[Hg] Dwight Lynch Weight Measured 2023-11-26 13:58:00 204.20 pounds Angel Lynch Height Measured 2023-11-26 13:58:00 65.00 inches Angel Lynch Body Temperature 2023-11-26 13:58:00 98.10 degrees Angel Lynch Heart Rate 2023-11-26 13:58:00 100.00 /min Ignacio Lynch Respiratory Rate 2023-11-26 13:58:00 nAgel Lynch Procedures Procedure Date / Time Performed Performing Clinician Source [id number] Removal Impacted Cerumen Using Irrigation/lavage, Unilateral 2023-12-14 00:00:00 Angel Lynch POCT SARS-COV-2 ANTIGEN (BINAX NOW) 2023-06-12 19:36:00 Alex Mejia [facility] AUTHORIZATION FOR RELEASE OF PHI 2023-06-03 06:01:00 Doctor Unassigned, [facility] POCT SARS-COV-2 ANTIGEN (BINAX NOW) 2022-10-05 01:45:00 Yuridia Coles [facility] US ABDOMEN LIMITED 2022-09-12 15:27:58 Elizabet Trammell [facility] ASSIGNMENT OF BENEFITS 2022-09-04 14:51:29 Docto r Unassigned, [facility] NOTICE OF PRIVACY PRACTICES 2021-11-25 17:58:19 Doctor Unassigned, [facility] CONSENT/REFUSAL FOR DIAGNOSIS AND TREATMENT 2021-11-25 17:58:03 Doctor Unassigned, [facility] AUTHORIZATION FOR RELEASE OF PHI 2021-11-07 05:01:00 Doctor Unassigned, [facility] Encounters Start Date/Time End Date/Time Encounter Type Admission Type Attending Clinicians Care Facility Care Department Encounter ID Source 2024-10-05 15:00:00 2024-10-05 15:00:00 Outpatient HUNDL, ROSALBA MICHELLE WHATLEY [id number] [facility] 2024-10-01 00:00:00 2024-10-01 00:00:00 Outpatient HUNDL, ROSALBA MICHELLE WHATLEY [id number] [facility] 2024-09-26 11:15:00 2024-09-26 11:15:00 Outpatient LAB90 MICHELLE WHATLEY [id number] [facility] 2024-09-26 00:00:00 2024-09-26 00:00:00 Outpatient MD MICHELLE GRADY [id number] Michelle [facility] 2024-09-21 13:30:00 2024-09-21 13:30:00 Outpatient HUNDL, ROSALBA WHATLEY [id number] [facility] 2024-09-21 00:00:00 2024-09-21 00:00:00 [id number]:00 2024-09-21 00:00:00 Outpatient HUNDL, ROSALBA WHATLEY [id number] Michelle [facility] 2024-09-20 09:30:00 2024-09-20 09:30:00 Outpatient MICHELLE WHATLEY [id number] [facility] 2024-09-20 00:00:00 2024-09-20 00:00:00 Outpatient HUNDL, ROSALBA WHATLEY [id number] [facility] 2024-09-19 00:00:00 2024-09-19 00:00:00 Outpatient HUNDL, ROSALBA WHATLEY [id number] [facility] 2024-09-16 00:00:00 2024-09-16 00:00:00 Outpatient HUNDL, ROSALBA WHATLEY [id number] [facility] 2024-09-14 13:30:00 2024-09-14 13:30:00 Outpatient HUNDL, ROSALBA WHATLEY [id number] [facility] 2024-08-12 10:30:00 2024-08-12 10:30:00 Outpatient HUNDL, ROSALBA MICHELLE MICHELLE [id number] Michelle [facility] 2024-08-03 10:00:00 2024-08-03 10:00:00 Outpatient ROSALBA BARFIELD MICHELLE [id number] Michelle [facility] 2024-07-14 14:00:00 2024-07-14 14:00:00 Outpatient ROSALBA BARFIELD MICHELLE [id number] Michelle [facility] 2024-06-30 13:30:00 2024-06-30 13:30:00 Outpatient MASON RUTHERFORD MICHELLE [id number] Michelle [facility] 2024-06-30 10:00:00 2024-06-30 10:00:00 Outpatient LINA CHOWDHURY MICHELLE [id number] [facility] 2024-05-17 14:23:21 2024-05-17 14:23:21 Outpatient SFA SFA [id number] Angel Lynch 2024-05-17 11:00:00 2024-05-17 11:00:00 Outpatient SOLA COLES MICHELLE [id number] [facility] 2024-05-17 00:00:00 2024-05-17 00:00:00 Outpatient Visit SFA [id number] Angel Lynch 2024-03-23 23:42:00 2024-03-23 23:48:00 Emergency X SWEETIE EAGLE TIMOTHY [facility] [id number] [facility] 2024-03-23 23:42:00 2024-03-23 23:48:00 Emergency Sweetie Eagle [facility] [id number] [facility] 2024-03-16 18:03:00 2024-03-16 18:39:00 Emergency X MURRAY MOORE [facility] [id number] [facility] 2024-03-16 18:03:00 2024-03-16 18:39:00 Emergency Murray Moore [facility] [id number] [facility] 2024-02-18 17:19:11 2024-02-18 17:19:11 Outpatient [facility] [id number] Angel Lynch 2024-02-18 00:00:00 2024-02-18 00:00:00 Outpatient Visit [facility] [id number] Angel Lynch 2024-01-26 17:53:49 2024-01-26 17:53:49 Outpatient [facility] [id number] Angel Gage Syed 2024-01-19 10:13:08 2024-01-19 10:13:08 Outpatient [facility] [id number] Angel Gage [place] 2024-01-17 20:52:00 2024-01-17 21:30:00 Emergency X CLAUDIA BOOTH [facility] [id number] [facility] 2024-01-17 20:52:00 2024-01-17 21:30:00 Emergency Claudia Booth [facility] [id number] [facility] 2024-01-17 00:00:00 2024-01-17 14:27:[address] [facility] [id number] [facility] 2024-01-10 11:40:00 2024-01-10 12:00:00 Urgent Care Flor Redmond Unknown, Attending [facility] [id number] [id number] [facility] 2024-01-10 11:40:00 2024-01-10 11:40:00 Outpatient FLOR FRANCO [facility] [id number] [facility] 2024-01-05 17:44:39 2024-01-05 17:44:39 Outpatient SFA SFA [id number] Angel Lynch 2023-12-22 19:17:33 2023-12-22 19:17:33 Outpatient SFA SFA [id number] Angel Lynch 2023-12-22 00:00:00 2023-12-22 00:00:00 Outpatient Visit SFA [id number] Angel Lynch 2023-12-17 14:00:29 2023-12-17 14:00:29 Outpatient SFA SFA [id number] Angel Lynch 2023-12-17 00:00:00 2023-12-17 00:00:00 Outpatient Visit SFA [id number] Angel Lynch 2023-12-16 00:00:00 2023-12-16 07:08:08 [facility] 1.2.840.114 350.1.13.10 4.2.7.2.686 [id number] [facility] 2023-12-14 15:22:06 2023-12-14 15:22:06 Outpatient SFA SFA [id number] Angel Lynch 2023-12-14 00:00:00 2023-12-14 00:00:00 Outpatient Visit SFA [id number] Angel Lynch 2023-12-09 16:13:50 2023-12-09 16:13:50 Outpatient SFA SFA [id number] Angel Lynch 2023-12-09 07:08:00 2023-12-09 07:39:00 Emergency X MAYURI EPPERSON [facility] ERT [id number] [facility] 2023-12-09 07:08:00 2023-12-09 07:39:00 Emergency Mayuri Epperson [facility] 1..840.114 350.1.13.10 4.2.7.2.686 [id number] [facility] 2023-12-09 00:00:00 2023-12-09 00:00:00 Outpatient Visit [facility] [id number] Angel Lynch 2023-12-04 23:03:00 2023-12-05 00:00:00 Emergency X AYALA CORADO [facility] ERT [id number] [facility] 2023-12-04 23:03:00 2023-12-05 00:00:00 [facility] 1..840.114 350.1.13.10 4.2.7.2.686 [id number] [facility] 2023-12-02 15:51:26 2023-12-02 15:51:26 Outpatient SFA [facility] [id number] Angel Lynch 2023-12-02 00:00:00 2023-12-02 00:00:00 Outpatient Visit [facility] [id number] Angel Lynch 2023-11-30 17:00:00 2023-11-30 17:20:00 Urgent Care Alex Mejia Unknown, Attending [facility] 1..840.114 350.1.13.10 4.2.7.2.686 [id number] [facility] 2023-11-30 17:00:00 2023-11-30 17:00:00 Outpatient R ALEX MEJIA [facility] [id number] [facility] 2023-11-26 13:51:51 2023-11-26 13:51:51 Outpatient SFA SFA [id number] Angel Lynch 2023-11-26 00:00:00 2023-11-26 00:00:00 Outpatient Visit [facility] [id number] Angel Lynch 2023-11-10 11:00:00 2023-11-10 11:34:56 Outpatient R CARYN HARDEN [facility] [id number] [facility] 2023-11-10 11:00:00 2023-11-10 11:34:56 Urgent Care Caryn Harden Unknown, Attending [facility] OFF[facility] 1.2.840.114 350.1.13.10 4.2.7.2.686 [id number] [facility] 2023-09-02 00:00:00 2023-09-02 00:00:[address] [facility] OFF[facility] BU[facility] 1.2.840.114 350.1.13.10 4.2.7.2.686 [id number] [facility] 2023-06-12 13:20:00 2023-06-12 14:04:37 Outpatient R ALEX MEJIA [facility] [id number] [facility] 2023-06-12 13:20:00 2023-06-12 14:04:37 Urgent Care Alex Mejia Unknown, Attending [facility] OFF[facility] BUILD[facility] 1.2.840.114 350.1.13.10 4.2.7.2.686 [id number] [facility] 2023-06-03 00:00:00 2023-06-03 00:00:00 Orders Only Doctor Unassigned, [place] 1.2840.114 350.1.13.10 4.2.7.2.686 [id number] [facility] 2023-04-06 16:32:00 2023-04-06 16:32:00 Outpatient SFA [facility] [id number] Angel Lynch 2023-01-28 13:30:00 2023-01-28 13:30:00 Outpatient JALYN CARVER [facility] [id number] [facility] 2023-01-10 15:40:00 2023-01-10 16:01:39 Outpatient R ALEX MEJIA [facility] [id number] [facility] 2023-01-10 15:40:00 2023-01-10 16:01:39 Urgent Care Alex Mejia Unknown, Attending [facility] 1.2840.114 350.1.13.10 4.2.7.2.686 [id number] [facility] 2022-10-29 15:15:00 2022-10-29 15:30:00 Ct Mri Technologist Visit [facility] 1.2840.114 350.1.13.10 4.2.7.2.686 [id number] [facility] 2022-10-29 14:30:00 2022-10-29 14:30:00 Office Visit Jeff [facility] 1.2840.114 350.1.13.10 4.2.7.2.686 [id number] [facility] 2022-10-29 14:30:00 2022-10-29 14:13:25 Outpatient JALYN CARVER [facility] [id number] [facility] 2022-10-19 09:20:00 2022-10-19 09:40:00 Urgent Care Ángel Mclaughlin B Unknown, Attending [facility] MED[facility] OFF[facility] BUILD[facility] 1.114 350.1.13.10 4.2.7.2.686 [id number] [facility] 2022-10-19 09:20:00 2022-10-19 09:20:00 Outpatient R ÁNGEL MCLAUGHLIN [facility] [id number] [facility] 2022-10-11 00:00:00 2022-10-11 00:00:00 Patient Secure Msg Doctor Unassigned, [place] 1.114 350.1.13.10 4.2.7.2.686 [id number] [facility] 2022-10-06 00:00:00 2022-10-06 00:00:00 Patient Secure Msg Elizabet Trammell [facility] OFF[facility] BU[facility] 1.114 350.1.13.10 4.2.7.2.686 [id number] [facility] 2022-10-04 20:40:00 2022-10-04 20:49:13 Outpatient R ALEX MEJIA [facility] [id number] [facility] 2022-10-04 20:40:00 2022-10-04 20:49:13 Urgent Care Alex Mejia Unknown, [facility]ending [facility] 1.84114 350.1.13.10 4.2.7.2.686 [id number] [facility] 2022-09-26 00:00:00 2022-09-26 00:00:00 Telephone Elizabet Trammell [facility] 1.84114 350.1.13.10 4.2.7.2.686 [id number] [id number] [facility] 2022-09-20 00:00:00 2022-09-20 00:00:00 Patient Secure Msg Doctor Unassigned, [facility] 1.840.114 350.1.13.10 4.2.7.2.686 [id number] [facility] 2022-09-18 00:00:00 2022-09-18 00:00:00 Telephone Elizabet Trammell [facility] OFF[facility] 1..840.114 350.1.13.10 4.2.7.2.686 [id number] [facility] 2022-09-16 00:00:00 2022-09-16 00:00:00 Patient Secure Msg Elizabet Trammell [facility] OFF[facility] 1..840.114 350.1.13.10 4.2.7.2.686 [id number] [id number] [facility] 2022-09-12 09:56:01 2022-09-12 23:59:00 Outpatient R ELIZABET TRAMMELL [facility] [id number] [facility] 2022-09-12 09:45:00 2022-09-12 23:59:00 Hospital Encounter Elizabet Trammell [facility] 1..840.114 350.1.13.10 4.2.7.2.686 [id number] [facility] 2022-09-08 00:00:00 2022-09-08 00:00:00 Telephone Elizabet Trammell [facility] OFF[facility]ILD[facility] 1..840.114 350.1.13.10 4.2.7.2.686 [id number] [facility] 2022-09-08 00:00:00 2022-09-08 00:00:00 Telephone Kley, [facility] OFF[facility] BU[facility] 1..114 350.1.13.10 4.2.7.2.686 [id number] [facility] 2022-09-05 12:30:00 2022-09-05 12:45:00 Ct Mri Technologist Visit Lab, Danny Hammer [facility] 1.0.114 350.1.13.10 4.2.7.2.686 [id number] [facility] 2022-09-05 12:29:53 2022-09-05 12:30:00 Outpatient R ELIZABET TRAMMELL [facility] [id number] [facility] 2022-09-04 10:30:00 2022-09-04 11:14:23 Outpatient R ELIZABET TRAMMELL [facility] [id number] [facility] 2022-09-04 10:30:00 2022-09-04 11:14:23 Office Visit Elizabet Trammell [facility] MED[facility] OFF[facility] BUILD[facility] 1.114 350.1.13.10 4.2.7.2.686 [id number] [facility] 2022-09-04 00:00:00 2022-09-04 00:00:00 Orders Only Doctor Unassigned, [facility] 1..114 350.1.13.10 4.2.7.2.686 [id number] [facility] 2022-08-07 12:45:00 2022-08-07 13:00:00 Ct Mri Technologist Visit Lab, Danny Hammer Stevie [facility] OFF[facility] 1.2.114 350.1.13.10 4.2.7.2.686 [id number] [facility] 2022-08-07 12:45:00 2022-08-07 12:28:59 Outpatient R ERINN MATTHEWS, [facility] [id number] [facility] 2022-08-07 11:40:00 2022-08-07 12:11:06 Office Visit Ste[facility] 1.2.840.114 350.1.13.10 4.2.7.2.686 [id number] [facility] 2022-08-07 00:00:00 2022-08-07 00:00:00 Telephone Stevie Erinn [facility] OFF[facility] 1.2.840.114 350.1.13.10 4.2.7.2.686 [id number] [facility] 2022-08-06 00:00:00 2022-08-06 00:00:00 Refill Alex Mejia [facility] OFF[facility] BUILD[facility] 1.2.840.114 350.1.13.10 4.2.7.2.686 [id number] [facility] 2022-08-06 00:00:00 2022-08-06 00:00:00 Refill Jp, Elizabet A [facility] MED[facility] OFF[facility] BUILD[facility] 1.2.840.114 350.1.13.10 4.2.7.2.686 [id number] 044 [id number] [facility] 2022-07-14 00:00:00 2022-07-14 00:00:00 Refill Jp, Elizabet A [facility] MED[facility] OFF[facility] BUILD[facility] 1.2.840.114 350.1.13.10 4.2.7.2.686 [id number] [facility] 2022-06-08 00:00:00 2022-06-08 00:00:00 Refill Jp, Elizabet A [facility] OFF[facility] BUILD[facility] 1.2.840.114 350.1.13.10 4.2.7.2.686 [id number] [facility] 2022-05-14 20:40:00 2022-05-14 20:56:40 Outpatient R ALEX MEJIA [facility] [id number] [facility] 2022-05-14 20:40:00 2022-05-14 20:56:40 Urgent Care Alex Mejia Unknown, Attending [facility] OFFICE BUILD[facility] 1.2840.114 350.1.13.10 4.2.7.2.686 [id number] [facility] 2022-05-10 00:00:00 2022-05-10 00:00:00 Refill Elizabet Trammell [facility] OFF[facility] BUILD[facility] 1.2840.114 350.1.13.10 4.2.7.2.686 [id number] [facility] 2022-01-13 00:00:00 2022-01-13 00:00:00 Refill Elizabet Trammell [facility] OFF[facility] BUILD[facility] 1.2.840.114 350.1.13.10 4.2.7.2.686 [id number] [id number] [facility] 2022-01-02 00:00:00 2022-01-02 00:00:00 Refill Elizabet Trammell [facility] OFF[facility]ILD[facility] 1..840.114 350.1.13.10 4.2.7.2.686 [id number] [facility] 2022-01-01 02:27:00 2022-01-01 02:27:00 Outpatient MARY GARCIA [id number] [facility] 2021-11-25 13:32:00 2021-11-25 14:26:00 Emergency X [facility] ERT [id number] [facility] 2021-11-25 13:32:00 2021-11-25 14:26:00 Emergency [facility] 1.2.840.114 350.1.13.10 4.2.7.2.686 [id number] [facility] 2021-11-25 12:40:00 2021-11-25 14:16:38 Outpatient CARYN HULL [facility] [id number] [facility] 2021-11-25 12:40:00 2021-11-25 13:00:00 Urgent Care Provider, Danny Hammer [facility] Care De[facility] 1.2.840.114 350.1.13.10 4.2.7.2.686 [id number] [facility] 2021-11-25 00:00:00 2021-11-25 00:00:00 Orders Only Doctor Unassigned, [place] 1.2.840.114 350.1.13.10 4.2.7.2.686 [id number] [facility] 2021-11-25 00:00:00 2021-11-25 00:00:00 Telephone Provider, Danny Urgent Care [facility] 1.2.840.114 350.1.13.10 4.2.7.2.686 [id number] [facility] 2021-11-15 16:30:00 2021-11-15 16:30:00 Outpatient ELIZABET MALONEY [facility] [id number] [facility] 2021-11-15 16:30:00 2021-11-15 16:30:00 Outpatient ELIZABET MALONEY [facility] [id number] [facility] 2021-11-07 14:00:00 2021-11-07 15:14:32 Office Visit Elizabet Trammell [facility] 1..840.114 350.1.13.10 4.2.7.2.686 [id number] [facility] 2021-11-07 14:00:00 2021-11-07 15:14:32 Outpatient R JPJONNIE HENDERSONLIE [facility] [id number] [facility] 2021-11-07 14:00:00 2021-11-07 14:00:00 Outpatient R ELIZABET TRAMMELL [facility] [id number] [facility] 2021-11-07 00:00:00 2021-11-07 00:00:00 Orders Only Doctor Unassigned, [facility] 1..840.114 350.1.13.10 4.2.7.2.686 [id number] [facility] 2021-11-04 00:00:00 2021-11-04 00:00:[address] [facility] OFF[facility]ILD[facility] 1..840.114 350.1.13.10 4.2.7.2.686 [id number] [facility] 2021-10-01 10:20:00 2021-10-01 10:20:00 Outpatient R ROWAN SADLER [facility] [id number] [facility] 2021-09-22 10:00:00 2021-09-22 10:00:00 Urgent Care Isaac Conti Amanda [facility] OFF[facility]ILD[facility] 1..840.114 350.1.13.10 4.2.7.2.686 [id number] [facility] 2021-09-22 10:00:00 2021-09-22 09:29:45 Outpatient R CARYN HARDEN [facility] [id number] [facility] 2021-09-05 00:00:00 2021-09-05 00:00:00 Outpatient ELIZABET MALONEY [facility] [id number] [facility] 2021-09-04 00:00:00 2021-09-04 00:00:00 Patient Secure Msg Doctor Unassigned, [place] 1..840.114 350.1.13.10 4.2.7.2.686 [id number] [facility] 2021-08-28 11:30:00 2021-08-28 13:13:07 Outpatient ALISSA MAXWELL [facility] [id number] [facility] 2021-08-22 16:30:00 2021-08-22 17:10:21 Outpatient ELIZABET MALONEY [facility] [id number] [facility] 2021-08-22 09:30:00 2021-08-22 09:30:00 Outpatient ELIZABET MALONEY [facility] [id number] [facility] 2021-08-19 00:00:00 2021-08-19 00:00:00 RefAlissa Clark [facility] OFFICE BUILD[facility] ONE 1..840.114 350.1.13.10 4.2.7.2.686 [id number] [facility] 2021-02-19 12:56:08 2021-02-19 12:56:17 Imm/Inj Visit Nurse, Destiny Hart ImmunizatiNorris Rojas [facility] Building 1..840.114 350.1.13.10 4.2.7.2.686 [id number] [facility] 2021-02-19 12:10:00 2021-02-19 12:10:00 Outpatient NORRIS THOMAS [facility] [id number] [facility] 2021-02-05 00:00:00 2021-02-05 00:00:00 Refill Alissa Owens [facility] Office Building One 1..114 350.1.13.10 4.2.7.2.686 [id number] [facility] 2021-01-29 13:00:00 2021-01-29 13:00:00 Outpatient [facility] [id number] [facility] 2020-10-19 00:00:00 2020-10-19 00:00:00 Telephone Alissa Owens [facility] Building One 1.114 350.1.13.10 4.2.7.2.686 [id number] [facility] 2020-09-10 00:00:00 2020-09-10 00:00:00 Patient Outreach Norris Almeida [facility] 1..114 350.1.13.10 4.2.7.2.686 [id number] [facility] 2020-03-08 00:00:00 2020-03-08 00:00:00 Telephone Alissa Owens [facility] Office Building One 1.114 350.1.13.10 4.2.7.2.686 [id number] [facility] 2020-03-07 00:00:00 2020-03-07 00:00:00 Case Management Alissa Owens [facility] Office Building One 1.114 350.1.13.10 4.2.7.2.686 [id number] [facility] 2020-03-01 09:31:48 2020-03-01 09:46:48 Ct Mri Technologist Visit 2, Adc Lab Alissa Owens [facility] Building 1.2.840.114 350.1.13.10 4.2.7.2.686 [id number] [facility] 2020-03-01 09:45:00 2020-03-01 09:45:00 Outpatient R ALISSA OWENS [facility] [id number] [facility] 2020-02-20 16:20:19 2020-02-26 21:40:47 Office Visit Alissa Owens [facility] Building 1.2.840.114 350.1.13.10 4.2.7.2.686 [id number] [facility] 2020-02-20 16:15:00 2020-02-20 16:15:00 Outpatient R LUBNA OWENSFUL [facility] [id number] [facility] 2020-02-02 15:00:00 2020-02-02 15:00:00 Outpatient R LUBNA OWENSFUL [facility] [id number] [facility] 2020-01-26 08:45:00 2020-01-26 08:45:00 Outpatient R LUBNA OWENSFUL [facility] [id number] [facility] 2020-01-20 17:40:00 2020-01-20 17:40:00 Outpatient R [facility] [id number] [facility] 2020-01-20 00:00:00 2020-01-20 00:00:[address] [facility] Office Building One 1.2.840.114 350.1.13.10 4.2.7.2.686 [id number] [facility] 2020-01-09 09:00:00 2020-01-09 09:00:00 Outpatient R ROMANLUBNA DELEONFUL [facility] [id number] [facility] 2020-01-04 13:15:00 2020-01-04 13:15:00 Outpatient R ALISSA OWENS [facility] [id number] [facility] 2019-12-20 00:00:00 2019-12-20 00:00:[address] [facility] Office Building One 1.114 350.1.13.10 4.2.7.2.686 [id number] [facility] 2019-12-20 00:00:00 2019-12-20 00:00:[address] [facility] Office Building One 1.114 350.1.13.10 4.2.7.2.686 [id number] [facility] 2019-08-26 00:00:00 2019-08-26 00:00:[address] [facility] Office Building One 1.114 350.1.13.10 4.2.7.2.686 [id number] [facility] 2019-08-07 00:00:00 2019-08-07 00:00:[address] [facility] Office Building One 1.114 350.1.13.10 4.2.7.2.686 [id number] [facility] 2019-05-04 12:20:00 2019-05-04 12:38:28 Outpatient ISAAC PHELPS [facility] [id number] [facility] 2019-02-13 15:50:45 2019-02-13 16:40:42 Urgent Care Froilan Stewart, Attending [facility] 1..114 350.1.13.10 4.2.7.2.686 [id number] [facility] 2019-02-06 00:00:00 2019-02-06 00:00:[address] [facility] Office Building One 1.2840.114 350.1.13.10 4.2.7.2.686 [id number] [facility] 2019-02-02 12:12:28 2019-02-02 12:59:44 Office Visit Isaac Conti [facility] Office Building One 1.2840.114 350.1.13.10 4.2.7.2.686 [id number] [facility] 2019-02-02 00:00:00 2019-02-02 00:00:00 Letter (Out) Alissa Owens [facility] Office Building One 1.2840.114 350.1.13.10 4.2.7.2.686 [id number] 044 [id number] [facility] 2019-01-22 10:18:30 2019-01-22 11:40:00 Emergency Deepak Vaughn [facility] 1.2.840.114 350.1.13.10 4.2.7.2.686 [id number] [facility] 2019-01-22 00:00:00 2019-01-22 00:00:00 Orders Only Doctor Unassigned, [place] 1.2840.114 350.1.13.10 4.2.7.2.686 [id number] [facility] 2019-01-10 00:00:00 2019-01-10 00:00:00 Orders Only Doctor Unassigned, [place] [facility] [id number] [id number] [id number] [facility] Results Test Description Test Time Test Comments Results Result Co mments Source Angel Gage AustinLIPID [id number] 00:00:00* Test Item Value Reference Range Interpretation Comme nts CHOLESTEROL (test code = 2210) 195 MG/DL TRIGLYCERIDES (test code = 2232) 127 MG/DL HDL CHOLESTEROL (test code = 2220) 51 MG/DL CALC LDL CHOL (test code = 2237) 120 MG/DL RISK RATIO LDL/HDL (test cod e = 2238) 2.35 RATIO Angel LynchCOMPREHENSIVE METABOLIC [id number] 00:00:00* Test Item Value Reference Range Interpretation Comme nts GLUCOSE (test code = 2217) 129 MG/DL BUN (test code = 2208) 15 MG/DL CREATININE (test code = 2214) 0.81 MG/DL eGFR (2020 CKD-EPI) (test code = 30764) 114 ML/MIN/1.73 CALC BUN/CREAT (test code = [...] (test code = 2219) 45 U/L Angel Gage AustinLIPID [id number] 00:00:00* Test Item Value Reference Range Interpretation Comme nts CHOLESTEROL (test code = 2210) 195 MG/DL TRIGLYCERIDES (test code = 2232) 127 MG/DL HDL CHOLESTEROL (test code = 2220) 51 MG/DL CALC LDL CHOL (test code = 2237) 120 MG/DL RISK RATIO LDL/HDL (test cod e = 2238) 2.35 RATIO Angel LynchCOMPREHENSIVE METABOLIC [id number] 00:00:00* Test Item Value Reference Range Interpretation Comme nts GLUCOSE (test code = 2217) 129 MG/DL BUN (test code = 2208) 15 MG/DL CREATININE (test code = 2214) 0.81 MG/DL eGFR (2020 CKD-EPI) (test code = 72939) 114 ML/MIN/1.73 CALC BUN/CREAT (test code = [...] (test code = 2219) 45 U/L [place] [id number] 00:00:00* Test Item Value Reference Range Interpretation Comme nts CHOLESTEROL (test code = 2210) 195 MG/DL TRIGLYCERIDES (test code = 2232) 127 MG/DL HDL CHOLESTEROL (test code = 2220) 51 MG/DL CALC LDL CHOL (test code = 2237) 120 MG/DL RISK RATIO LDL/HDL (test cod e = 2238) 2.35 RATIO Angel LynchCOMPREHENSIVE METABOLIC [id number] 00:00:00* Test Item Value Reference Range Interpretation Comme nts GLUCOSE (test code = 2217) 129 MG/DL BUN (test code = 2208) 15 MG/DL CREATININE (test code = 2214) 0.81 MG/DL eGFR (2020 CKD-EPI) (test code = 24886) 114 ML/MIN/1.73 CALC BUN/CREAT (test code = [...] (test code = 2219) 45 U/L Angel Gage AustinLIPID [id number] 00:00:00* Test Item Value Reference Range Interpretation Comme nts CHOLESTEROL (test code = 2210) 195 MG/DL TRIGLYCERIDES (test code = 2232) 127 MG/DL HDL CHOLESTEROL (test code = 2220) 51 MG/DL CALC LDL CHOL (test code = 2237) 120 MG/DL RISK RATIO LDL/HDL (test cod e = 2238) 2.35 RATIO Angel Gage [place]PREHENSIVE METABOLIC [id number] 00:00:00* Test Item Value Reference Range Interpretation Comme nts GLUCOSE (test code = 2217) 129 MG/DL BUN (test code = 2208) 15 MG/DL CREATININE (test code = 2214) 0.81 MG/DL eGFR (2020 CKD-EPI) (test code = 94809) 114 ML/MIN/1.73 CALC BUN/CREAT (test code = [...] (test code = 2219) 45 U/L Angel Gage AustinLIPID [id number] 00:00:00* Test Item Value Reference Range Interpretation Comme nts CHOLESTEROL (test code = 2210) 195 MG/DL TRIGLYCERIDES (test code = 2232) 127 MG/DL HDL CHOLESTEROL (test code = 2220) 51 MG/DL CALC LDL CHOL (test code = 2237) 120 MG/DL RISK RATIO LDL/HDL (test cod e = 2238) 2.35 RATIO [facility] ANTIGEN (BINAX NOW)2023-06-12 19:51:00* Test Item Value Reference Range Interpretation Comme nts POCT SARS-COV-2 ANTIGEN (kory t code = 88206-7) Not Detected Not Detected On board controls acceptable with C Line (test code = 3574) Yes Lab Interpretation (test cod e = 56634-6) [facility] (BINAX NOW)2022-10-05 01:46:00* Test Item Value Reference Range Interpretation Comme nts POCT SARS-COV-2 ANTIGEN (test code = 44048-4) Not Detected Not Detected On board controls acceptable with C Line (test code = 3574) Yes SANDY (test code = SANDY) accurate developme nt and interpretation of all internal controls Lab Interpretation (test code = 87694-7) Normal [facility] Notes Date/Time Note Provider Source 2024-07-14 13:57:02 Chief Complaint Patient presents with Establish Care No PCP within the past 3 years. He has seen providers at [facility] in [place]. Last annual over a year. Elba Willingham MA [facility] Angel Huynh [facility]2024-10-02 23:46:55 Pt given printed and verbal discharge [...] with steady gait, in no apparent distress, [facility] [id number] 23:36:13 Pt states he had a ear infection in L ear and the R ear is beginning to feel like it is feeling infected too. He put ear drops in his R ear and it is in pain now. Jonathan Egan [place] [id number] 18:12:02 Written/verbal d/c instructions, out of er no distress Mary Pichardo [facility]fiwyb4928-99-10 17:56:41 Patient arrives to ER with c/o Left ear fullness and pain with drainage, patient had "bilateral ear tubes placed six weeks ago" has appointment with dolphin researcher Thursday. Past Medical History: Diagnosis Date Abnormal liver ultrasound 09/18/2022 Dermatitis 02/26/2020 Dyslipidemia Elevated LFTs 08/11/2018 Erythrocytosis Essential hypertension, benign 06/25/2017 Gallstones 09/18/2022 Prediabetes Valvular heart disease Rupesh Pappas RN[facility] [id number] 00:00:00 Angel GageDinorah [facility]2024-07-28 21:27:18 Pt left with out the discharge paper work, able to talk to him in the phone to pickle pumper his medicine at [facility]. ELT Gricelda Parker [place] [id number] 20:48:06 Pt arrived ambulatory with c/o decreased hearing in left ear. Scheduled for tube placement at the end of January. Subha Camacho RN[place] [id number] 10:54:45 Altagracia Carson is a 43 year old male is calling to request that 2 medications be called in again to the pharmacy. Pt states he only took 1 day of both and lost the medications. azithromycin 250 mg tablet predniSONE 20 mg tablet [facility] [address] [place] [id number] Pt would like a call back once done Bernarda Hayes 01/17/2024 10:56 AM [facility] CenterDfrcgy6950-28-00 00:00[facility]00 [facility]00 [facility]2024-06-24 00:00:00 [place] [id number] 07:38:23 Pt given printed and verbal discharge [...] gait, in no apparent distress. Gricelda Parker RNMet[facility] CenterIgbbkq8288-14-23 07:05:29 Altagracia Carson is a 43 year old male c/o left ear pain for 1 week, states on augmentin and ciprodex otic for swimmers ear, sates can't hear and swelling is worse Mary P[facility] [id number] 06:57:00 EMERGENCY DEPARTMENT ENCOUNTER [facility] Patient Name: Altagracia Carson Date of : 1980 43 year old Exam Room:[place] [address] Primary Care Physician: Elizabet Trammell [facility] [...] is not hypoxic. Interpreted. Reassessment:stable Communication with mergers and acquisitions consultant: None. Limitations to patient care and [...] MCG (0.1 %) NASAL SPRAY Use 1 Commercial Point in each nostril in the morning and 1 Commercial Point in the evening. Use in each nostril [...] PROPIONATE 50 MCG/ACTUATION NASAL SPRAY Use 1 Commercial Point in each nostril in the morning. LOSARTAN [...] on file Mayuri Epperson Jr., MD Clinical Office Bookkeeper [facility] Emergency Department [facility] Dictation Software is used frequently and may produce errors. Promptly contact for obvious discrepancies. Mayuri Epperson MD 12/09/23 0739 [place] 02522-06-19 00:00:00 Angel [facility]2024-06-14 23:59:26 Pt dc'd home ambulatory with 2x prescriptions. Pt v/u of dc instructions, prescription use, and follow up as needed. [facility] Moraima Cage RN[place] [id number] 22:55:08 Patient arrived ambulatory to ED c/o left ear pain. Patient has been seen twice at Urgent Care and PCP on Thursday flushed ear out and pieces of Q tips came out. Patient states "it still feels like there is something in there." Patient has been taking steroid drops. [facility]2024-06-12 00:00:00 [facility]2024-06-06 00:00:00 [place] [id number] 07:39:14 Notes: MUST BE SEEN FOR FURTHER REFILLS Last Refilled: losartan 50 mg tablet 90 tablet 3 08/07/2022 -- No Sig: Take 1 tablet by mouth every morning. 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 Showing future appointments within next 150 days with a meds authorizing provider and meeting all other requirements Alexsandra Mcwilliams [facility]
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
[2024-10-07 18:15] VITALS: TEMP 97.3; O2SAT 100
[2024-10-07 18:17] VITALS: BP 139/76
== END 2024-10-07 17:53 | disposition home or self-care (01) ==
LOC: ER 15:47
DX: Z04.71 Encounter for examination and observation following alleged adult physical abuse (principal); M54.2 Cervicalgia; S00.83XA Contusion of other part of head, initial encounter
CPT/HCPCS: 70450; 72125; 99283